=== PATIENT | male | born 1955 | race Caucasian/White ===

== ENCOUNTER 2018-03-26 05:59 | Emergency (ER) | payer OTHER, SELFPAY ==
[2018-03-26 06:00] VITALS: BP 139/85; PULSE 105; RESP 17; TEMP 36.5; O2SAT 98; BMI 27.4
[2018-03-26 06:02] VITALS: O2SAT 99
--- NOTE | 2018-03-26 06:03 | ED.RN ---
RN CALLED FOR EKG, PULLED OLD EKG'S FOR
[2018-03-26] MEDS: Aspirin 81 MG TAB.CHEW 324 MG PO (06:12)
--- NOTE | 2018-03-26 06:12 | ED.VISSUMM ---
- ER Visit Summary Date of Service: 03/26/18 Chief Complaint: Right sided chest pain and mild shortness of breath History of Present Illness: The patient is a 62 M denies any prior cardiac history. He does have a history of hypertension. Prior prostate CA. Prior renal resection from a mass that ended up being benign. Patient denies any history of cardiac disease. No history of prior DVT or PE. Denies recent travel, surgery or mobilization. Denies calf pain or swelling. Denies pleuritic chest pain or hemoptysis. The pain tonight started within the last hour. He was brought in from work. Physical Examination: Ill-appearing middle-aged male. Vital signs are stable afebrile. Pulse ox 90% room air no signs of hypoxia. H EENT exam unremarkable. Neck ABD. Lungs clear to auscultation bilaterally. No rales, rhonchi or wheezing. Heart regular rhythm rate about 100-105 no murmur. Chest wall is nontender. No ecchymosis or bruising. No subcu air nor crepitance. Abdomen soft and nontender. Normal bowel sounds no peritoneal signs. He is moving all 4 extremities. Calves are nontender without edema or cords. He has normal range of motion of both upper and lower extremities. Equal symmetrical radial pulses. Neurologically is awake alert with no focal motor deficits. Back exam is nontender. And unremarkable. Test Results: 1 view chest x-ray read by myself shows no acute abnormality. CBC shows a white count of 6. Hemoglobin of 12 which is his baseline on prior labs. Electrolytes show potassium at 3.3. BUN of 31 and a creatinine of 1.84 typically his creatinines run 1.3. Gap is 7. Due to the elevated creatinine he will be given a liter of normal saline on V. Troponin normal. D-dimer is slightly elevated 0.65. EKG is a sinus tachycardia rate of 102. No acute signs of ischemia. Emergency Department Course and Treatment: Gentleman with atypical right-sided chest discomfort and dyspnea. He has no risk factors for DVT or PE nor history nor family history. He will undergo a cardiac workup. Treatment Plan: Due to the patient's right-sided chest pain, complaint of dyspnea and elevated d-dimer number he will undergo a CT of the chest which is been ordered. Due to his elevated creatinine of the receive a liter of normal saline prior to the CTA. Patient will be checked out in the a.m. physician Dr. Mihai Martin for final disposition. I discussed with the patient his elevated creatinine and only having one kidney he deferred any CTA testing. He states that his chest discomfort is completely resolved. I explained to him that he really did not have any significant risk factors but we should evaluate this further so he is okay with getting bilateral noninvasive studies of his lower extremities. 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 It may contain incorrect words, spelling, and punctuation that were not noted in review of the chart prior to signing ED Disposition - Plan for ED Patient: Chief Complaint: Chest Pain Referrals: Shaniqua Hanna MD [Primary Care Provider] -
[2018-03-26 06:19] LABS: Absolute Lymphocyte Count 1.54 X10^3/ul (0.83-4.51); Absolute Neutrophil Count 3.9 X10^3/uL (2.0-7.7); Basophil# 0.02 X10^3/uL; Basophil% 0.3 % (0-1); Eosinophil# 0.07 X10^3/uL; Eosinophils% 1.1 % (0-5); Hematocrit 37.5 % (40-54); Hemoglobin 12.2 g/dl (13.0-16.5); Lymphocyte # 1.54 X10^3/ul (4.0); Lymphocyte % 23.3 % (19-41); Mean Corp Hgb Conc 32.5 g/gl (32-36); Mean Corpuscular Hgb 29.6 pg (27.0-32.0); Mean Platelet Vol. 9.1 fl (6.2-12.0); Monocyte# 0.99 X10^3/uL; Neutrophil # 3.93 X10^3/uL (2.7-7.7); Neutrophil % 59.5 % (47-70); Platelet Count 298 K/mm3 (150-450); RBC Distribution Width CV 14.3 % (11.6-14.6); RBC Distribution Width SD 47.2 fl (35.1-43.9); Red Blood Count 4.12 M/mm3 (4.6-6.2); White Blood Count 6.6 K/mm3 (4.4-11.0)
[2018-03-26 06:21] LABS: POSITIVE COUNT NO; POSITIVE DIFFERENTIAL NO; POSITIVE MORPHOLOGY NO
[2018-03-26 06:31] LABS: Anion Gap 7 (5-15); BUN 31 mg/dL (7-18); BUN/Creat Ratio 16.8 RATIO (10-20); Calcium,Total 8.8 mg/dL (8.5-10.1); Chloride 106 mmol/L (98-107); Creatinine, Serum 1.84 mg/dL (0.70-1.30); EST Glomerular Filtration Rate 40 mL/min (>60); Est Glom Filt Rate - Afr Amer 48 mL/min (>60); Estimated Creatinine Clearance 42.69 ml/min; Glucose 103 mg/dL (74-106); Potassium 3.3 mmol/L (3.5-5.1); Sodium Level 139 mmol/L (136-145)
[2018-03-26 07:00] VITALS: BP 120/83; PULSE 87; RESP 16; O2SAT 96
[2018-03-26 07:00] LABS: D-Dimer Quantitative (DVT/PE) 0.65 FEU/ug/m (0.27-0.49)
[2018-03-26] MEDS: 0.9% Normal Saline 1,000 ML 999 ML IV (07:06)
[2018-03-26 08:07] VITALS: BP 127/99; PULSE 80; RESP 15; O2SAT 98
--- NOTE | 2018-03-26 08:45 | ED.DEP ---
ED Disposition - Plan for ED Patient: Disposition: Home or Assisted Living Chief Complaint: Chest Pain Instructions: ED Chest Pain Atypical Unkn Cause, ED Insufficiency Renal Referrals: Shaniqua Hanna MD [Primary Care Provider] - 3-5 Days
[2018-03-26 09:16] VITALS: BP 123/87; PULSE 90; RESP 17; O2SAT 98
== END 2018-03-26 09:16 | disposition home or self-care (01) ==
PROVIDERS: Emergency Medicine; Emergency Provider Emergency Medicine; Family Provider Family Medicine; PCP Family Medicine
DX: R07.89 Other chest pain (principal); R06.00 Dyspnea, unspecified; N28.9 Disorder of kidney and ureter, unspecified; R74.8 Abnormal levels of other serum enzymes; R00.0 Tachycardia, unspecified; I10 Essential (primary) hypertension; Z72.0 Tobacco use; Z79.899 Other long term (current) drug therapy; Z85.46 Personal history of malignant neoplasm of prostate; Z90.5 Acquired absence of kidney
CPT/HCPCS: 71045; 80048; 84484; 85025; 85379; 93005; 93970; 96360; 99285; J7030; A4216

== ENCOUNTER → 2018-05-10 09:47 | Outpatient (CLI) | payer OTHER, SELFPAY ==
[2018-05-10 11:13] LABS: Anion Gap 9 (5-15); BUN 29 mg/dL (7-18); BUN/Creat Ratio 17.8 RATIO (10-20); Calcium,Total 8.8 mg/dL (8.5-10.1); Chloride 106 mmol/L (98-107); Creatinine, Serum 1.63 mg/dL (0.70-1.30); EST Glomerular Filtration Rate 46 mL/min (>60); Est Glom Filt Rate - Afr Amer 56 mL/min (>60); Glucose 87 mg/dL (74-106); PSA,Total- Diagnostic 1.52 ng/mL (0.0-4.0); Potassium 4.3 mmol/L (3.5-5.1); Sodium Level 142 mmol/L (136-145)
== END ==
PROVIDERS: Family Provider Family Medicine; PCP Family Medicine; Referring Provider Urology; Visit Provider Urology
DX: C64.9 Malignant neoplasm of unspecified kidney, except renal pelvis (principal); C61 Malignant neoplasm of prostate
CPT/HCPCS: 36415; 80048; 84153

== ENCOUNTER → 2019-05-13 09:51 | Outpatient (CLI) | payer OTHER, SELFPAY ==
[2019-05-13 11:35] LABS: PSA,Total- Diagnostic 1.47 ng/mL (0.0-4.0)
== END ==
PROVIDERS: Family Provider Family Medicine; PCP Family Medicine; Referring Provider Urology; Visit Provider Urology
DX: C61 Malignant neoplasm of prostate (principal)
CPT/HCPCS: 36415; 84153

== ENCOUNTER → 2020-05-05 16:01 | Outpatient (CLI) | payer OTHER, SELFPAY ==
[2020-05-05 17:20] LABS: PSA,Total- Diagnostic 1.29 ng/mL (0.0-4.0)
== END ==
PROVIDERS: PCP Family Medicine; Referring Provider Urology; Visit Provider Urology
DX: Z85.46 Personal history of malignant neoplasm of prostate (principal)
CPT/HCPCS: 36415; 84153

== ENCOUNTER → 2021-05-11 16:27 | Outpatient (CLI) | payer OTHER, SELFPAY ==
[2021-05-11 18:00] LABS: PSA,Total- Diagnostic 1.79 ng/mL (0.0-4.0)
== END ==
PROVIDERS: PCP Family Medicine; Referring Provider Urology; Visit Provider Urology
DX: C61 Malignant neoplasm of prostate (principal)
CPT/HCPCS: 36415; 84153

== ENCOUNTER → 2023-04-03 | Outpatient (CLI) | payer OTHER, MEDICARE, SELFPAY ==
[2023-04-03 12:02] LABS: Hemoglobin 13.8 g/dL (13.0-16.5); Mean Corp Hgb Conc 29.4 g/dL (32-36); Mean Corpuscular Hgb 25.8 pg (27.0-32.0); Mean Platelet Vol. 8.3 fl (6.2-12.0); Platelet Count 319 K/mm3 (150-450); RBC Distribution Width CV 16.3 % (11.6-14.6); RBC Distribution Width SD 51.6 fl (35.1-43.9); Red Blood Count 5.34 M/mm3 (4.6-6.2); White Blood Count 7.6 K/mm3 (4.4-11.0)
[2023-04-03 12:10] LABS: Prothrombin Time (Protime)PT. 13.4 SECONDS (11.7-14.9)
[2023-04-03 12:11] LABS: Partial Thromboplast Time 39.8 Seconds (24.1-36.2)
== END | disposition home or self-care (01) ==
LOC: PAVLAB 11:50
PROVIDERS: PCP Family Medicine; Referring Provider Internal Medicine Critical Care Medicine; Visit Provider Internal Medicine Critical Care Medicine
DX: R91.8 Other nonspecific abnormal finding of lung field (principal)
CPT/HCPCS: 36415; 85027; 85610; 85730

== ENCOUNTER 2023-04-24 07:54 | Inpatient (IN) | payer OTHER, MEDICARE, SELFPAY ==
[2023-04-24] VITALS (44 sets, daily range): BP systolic 75–108; BP diastolic 45–72; PULSE 85–118; RESP 16–29; TEMP 35.8–37.1; O2SAT 87–100; BMI 23.1
--- NOTE | 2023-04-24 08:15 | ED.VIS.DYS ---
HPI History of Present Illness Chief Complaint: Shortness of Breath Informant: patient Onset/Context/Timing Onset: Weeks (3) Context: gradual Timing: Continuous Quality: Positive for Dyspnea on exertion Worsened by: Exertion Relieved by: Rest Associated Symptoms cough, white sputum and yellow sputum; Negative for rhinorrhea, post nasal drip, ear pain, fever, sore throat, chills, sweats, clear sputum or green sputum Chest Pain: Positive for Intermittent and Tightness Narrative Narrative: Patient presents with shortness of breath that has been getting worse over the past 3 weeks. Patient states it is worse anytime he exerts himself such as walking. Patient states he gets some tightness in the left side of his chest when this occurs. Patient admits to a cough with some yellow and white sputum. Patient denies any fevers or chills. Patient denies any sore throat or rhinorrhea. Patient states he was scheduled for a biopsy on his left lung but he has not had the biopsy yet. Patient states his breathing is better with rest. PE Risk Factors: Negative for Cancer, OCP + Smoking + > 35, Prior DVT or PE, Recent immobilization, Recent surgery or Recent travel [facility] Medical History (Updated 04/24/23 @ 14:[address] Parvez Gurrola DO) CKD (chronic kidney disease) BUTCHER (dyspnea on exertion) Hypertension Hypothyroidism Mass of upper lobe of left lung Tobacco abuse Home Medications metoprolol tartrate 25 mg tablet 25 mg PO BID 03/26/18 [History Last Taken Unknown] lisinopril 20 mg-hydrochlorothiazide 25 mg tablet 1 tab PO DAILY 03/27/23 [History Last Taken Unknown] rosuvastatin 40 mg tablet 40 mg PO DAILY 03/27/23 [History Last Taken Unknown] Allergy/AdvReac Type Severity Reaction Status Date / Time No Known Allergies Allergy Verified 04/03/23 10:49 Family History (Updated 04/03/23 @ 10:54 by Tonya Crawford) Brother Cancer Kidney disease Mother Heart disease Grandfather Cancer LUNG Surgical History (Updated 04/24/23 @ 08:[address] Parvez Gurrola DO) History of left nephrectomy Social History Smoking Status: Current every day smoker tobacco type: cigarettes ROS ROS ED Constitutional Constitutional ED: Denies chills or fever(s) Eyes Eyes: Denies blurry vision or change in vision ENT ENT ED: Denies rhinorrhea or sore throat Cardiovascular Cardiovascular: Reports chest pain; Denies palpitations Respiratory/Chest Respiratory/Chest: Reports cough and dyspnea Gastrointestinal Gastrointestinal: Denies nausea or vomiting Genitourinary Genitourinary ED: Denies dysuria or hematuria Musculoskeletal Musculoskeletal: Denies back pain or neck pain Integumentary Denies abscess or rash Neurologic Neurologic: Denies headache(s) or weakness Allergic/Immunologic Allergic/Immunologic ED: Denies mouth swelling or urticaria EXAM Physical Exam Const Vital Signs: 04/24/23 07:56 04/24/23 08:58 04/24/23 08:50 Temperature 96.5 F L Temperature Source Temporal Pulse Rate 85 91 Respiratory Rate 18 23 H Respiratory Effort Respiratory Depth Respiratory Pattern Blood Pressure 75/45 L Blood Pressure Mean 55 Pulse Ox 96 Oxygen Delivery Method Room Air Room Air 04/24/23 09:21 04/24/23 10:20 04/24/23 10:30 Temperature Temperature Source Pulse Rate 98 89 Respiratory Rate 22 H 21 H Respiratory Effort Short of Breath Respiratory Depth Normal Respiratory Pattern Normal Blood Pressure Blood Pressure Mean Pulse Ox Oxygen Delivery Method Room Air 04/24/23 10:40 04/24/23 10:50 04/24/23 11:00 Temperature Temperature Source Pulse Rate 92 93 99 Respiratory Rate 18 18 20 H Respiratory Effort Respiratory Depth Respiratory Pattern Blood Pressure Blood Pressure Mean Pulse Ox Oxygen Delivery Method 04/24/23 11:10 04/24/23 11:24 04/24/23 11:30 Temperature Temperature Source Pulse Rate 98 105 H 106 H Respiratory Rate 22 H 23 H 25 H Respiratory Effort Respiratory Depth Respiratory Pattern Blood Pressure Blood Pressure Mean Pulse Ox Oxygen Delivery Method 04/24/23 11:40 04/24/23 11:50 04/24/23 12:00 Temperature Temperature Source Pulse Rate 98 100 101 H Respiratory Rate 21 H 22 H 22 H Respiratory Effort Respiratory Depth Respiratory Pattern Blood Pressure Blood Pressure Mean Pulse Ox 94 94 92 Oxygen Delivery Method 04/24/23 12:47 04/24/23 12:49 04/24/23 12:50 Temperature Temperature Source Pulse Rate Respiratory Rate Respiratory Effort Respiratory Depth Respiratory Pattern Blood Pressure 83/72 L Blood Pressure Mean 78 Pulse Ox 93 93 Oxygen Delivery Method 04/24/23 13:00 04/24/23 13:10 04/24/23 13:15 Temperature Temperature Source Pulse Rate 99 100 Respiratory Rate 26 H 16 Respiratory Effort Respiratory Depth Respiratory Pattern Blood Pressure 92/68 90/66 Blood Pressure Mean 75 75 Pulse Ox 94 94 Oxygen Delivery Method 04/24/23 13:20 04/24/23 13:30 04/24/23 13:48 Temperature Temperature Source Pulse Rate 105 H 101 H 102 H Respiratory Rate 20 H 18 18 Respiratory Effort Respiratory Depth Respiratory Pattern Blood Pressure 90/66 Blood Pressure Mean 74 Pulse Ox 100 Oxygen Delivery Method 04/24/23 14:05 Temperature Temperature Source Pulse Rate 102 H Respiratory Rate 20 H Respiratory Effort Respiratory Depth Respiratory Pattern Blood Pressure 103/66 Blood Pressure Mean 78 Pulse Ox 100 Oxygen Delivery Method Room Air Positive well nourished and well developed General Appearance ED: well developed HEENT Reports moist mucous membranes Neck supple and no JVD Resp normal respiratory effort Auscultation: wheezes expiratory wheezes and throughout and diminished lung sounds left Cardio regular rate and regular rhythm GI normal to inspection, nondistended, normoactive bowel sounds Palpation: soft Extremity normal to inspection General Extremety ED: Negative for edema or tenderness General Extremity: Negative for edema Neuro oriented x3, CN's II-XII intact bilaterally and no sensory deficits noted Sensorium / Orientation: alert Motor Exam: strength 5/5 throughout Psych mental status grossly normal Skin no rashes or lesions noted MDM MDM MDM Narrative Medical decision making narrative: Differential diagnosis includes pneumothorax, COPD exacerbation, lung mass, pulmonary embolism, pneumonia, congestive heart failure, cardiac dysrhythmia, cardiac ischemia, and anxiety. Chest x-ray will be obtained to assess for pneumonia and pneumothorax. EKG will be obtained to assess for cardiac dysrhythmia and cardiac ischemia. CBC will be obtained to assess for leukocytosis and anemia. Basic metabolic profile will be obtained to assess for electrolyte abnormality and renal function. High-sensitivity troponin will be obtained to assess for cardiac ischemia. D-dimer will be obtained to assess for pulmonary embolism. Lab Data Attestation: I reviewed the patient's lab results. Lab results narrative: CBC was reviewed. There is a slight anemia with a hemoglobin of 12.8. Platelets were normal. White blood cell count was normal. Basic metabolic profile was reviewed. BUN was 48 and creatinine was 3.03. These are increased from previous results. PT with INR and PTT were reviewed and were essentially within normal limits. D-dimer was reviewed and was elevated at 5.67. High-sensitivity troponin was reviewed and was normal at 14. Labs: Laboratory Results - last 24 hr 04/24/23 09:05 WBC 9.1 RBC 5.06 Hgb 12.8 L Hct 44.9 MCV 88.7 MCH 25.3 L MCHC 28.5 L RDW Std Deviation 55.2 H RDW Coeff of Jeffrey 17.2 H Plt Count 286 MPV 9.3 Immature Gran % (Auto) 0.600 Neut % (Auto) 78.2 H Lymph % (Auto) 5.4 L [place] % (Auto) 14.3 H Eos % (Auto) 1.2 Baso % (Auto) 0.3 Absolute Neuts (auto) 7.1 Absolute Lymphs (auto) 0.49 L Nucleated RBC % 0 Differential Comment SCANNED PT 14.0 INR 1.1 APTT 36.4 H D-Dimer Quant (PE/DVT) 5.67 H* Sodium 134 L Potassium 4.9 Chloride 107 Carbon Dioxide 21.0 Anion Gap 6 BUN 48 H Creatinine 3.03 H Est GFR (MDRD) Af Amer 27 L Est GFR (MDRD) Non-Af 22 L BUN/Creatinine Ratio 15.8 Glucose 103 Calcium 9.0 Troponin I High Sens 14 Radiography Chest X-Ray - ED: 2 View, Read by ED Physician, Read by Radiologist, Left Infiltrate and Left Effusion CTA PE Study: No Evidence of PE and No Evidence of Dissection Diagnostic Testing: Clinical Impression(s) from Imaging Studies Chest X-Ray 04/24/23 09:10 IMPRESSION: 3.8 cm x 3.1 cm mass in the medial aspect of the left upper lobe. Left pleural effusion with left basilar infiltration. Electronically Signed: Enoc Amos MD at 9:47 EDT , Chest CTA 04/24/23 10:14 IMPRESSION: Moderate-sized left pleural effusion with left basilar atelectasis. 2.9 cm x 3.1 cm mass in the left upper lobe. Left hilar lymphadenopathy. Mild enlargement of mediastinal lymphadenopathy. Electronically Signed: Enoc Amos MD at 12:05 EDT , PA and lateral chest x-ray was obtained. There are 2 views. On my independent interpretation, lung fontanez show a left infiltrate and left pleural effusion. There is a 3.8 x 3.1 cm mass in the medial aspect of the left upper lobe. There is normal cardiac silhouette. Bony thorax is normal. Radiologist also interpreted the x-ray and agrees. Because of the elevated D-dimer, CTA of the chest was obtained. There is a moderate size left pleural effusion with left basilar atelectasis versus infiltrate. There is a 2.9 cm x 3.1 cm mass in the left upper lobe. There is left hilar lymphadenopathy. This was interpreted by the radiologist and was also independently reviewed by myself. EKG Initial EKG: Attestation: I personally reviewed and interpreted this EKG as follows: Interpretation: Sinus Rhythm (90) and No Acute Injury Pattern Comments: EKG was obtained. On my independent interpretation, it showed a normal sinus rhythm with a rate of 90. UT interval, QRS interval, and QTc intervals were all normal. [place] was normal. There are no acute ST or T wave changes. Prior EKG tracings: available for review Prior: Unchanged (03/26/2018) Treatment and Re-Evaluation :: Patient was given IV fluids. Patient's blood pressure remains somewhat low after 1 L. Patient was given an additional with 1.5 L of IV fluids. Patient was started on Rocephin and Zithromax. Blood cultures were obtained prior to antibiotics. Patient was advised of his findings. Patient was advised of the need for admission to the hospital for IV fluids and IV antibiotics. Patient is agreeable with this. Case will be discussed with the hospitalist. He recommended obtaining venous duplex of the lower extremities. He will admit the patient to his service. Patient understood and was agreeable with the plan. All questions were answered. Discharge Plan Dx/Rx/DC Orders Clinical Impression: Pleural effusion on left, Tobacco abuse, Pneumonia, Hypotension, Acute kidney injury, Mass of left lung Disposition Disposition: [facility]
--- NOTE | 2023-04-24 08:26 | EKG12_ITS ---
Test Reason : SOB Blood Pressure : / mmHG Vent. Rate : 090 BPM Atrial Rate : 090 BPM P-R Int : 140 ms QRS Dur : 072 ms QT Int : 346 ms P-R-T Axes : 033 043 062 degrees QTc Int : 423 ms Normal sinus rhythm Normal ECG Confirmed by DALLAS MEDEIROS MD ([id number]), clinical editor CINTHIA SCHMITZ ([id number]) on 04/27/2023 1:51:11 PM Referred By: Confirmed By:DALLAS MEDEIROS MD
[2023-04-24] MEDS: Ipratropium/Albuterol Sulfate 3 ML AMPUL.NEB INHALATION (08:57)
[2023-04-24] MEDS: 0.9% Normal Saline (1000mL) 1,000 ML 1000 ML IV (09:07)
--- NOTE | 2023-04-24 09:10 | RAD_ITS ---
STUDY: X-RAY CHEST REASON FOR EXAM: Male, 67 years old. Dyspnea TECHNIQUE: PA and lateral views of the chest. COMPARISON: Comparison is made with prior study dated March 26, 2018. FINDINGS: EKG electrodes are seen. There is a 3.8 cm x 3.1 cm nodule in the medial aspect of the left upper lobe. This was not seen on prior study. Small left pleural effusion with left basilar infiltrate. Mild increased markings at the right lung base. Normal size heart. Normal mediastinum and casimiro. Normal visualized pulmonary arteries. There is atherosclerotic calcification of the aortic arch with tortuosity. Normal visualized thoracic spine. Normal visualized ribs, clavicles, and shoulders. There is no demonstrated abnormality of the visualized soft tissue structures of the upper abdomen. RAD/Chest PA and Lateral IMPRESSION: 3.8 cm x 3.1 cm mass in the medial aspect of the left upper lobe. Left pleural effusion with left basilar infiltration. Electronically Signed: Enoc Amos MD at 9:47 EDT ,
[2023-04-24 09:12] LABS: Absolute Lymphocyte Count 0.49 X10^3/uL (0.83-4.51); Absolute Neutrophil Count 7.1 X10^3/uL (2.0-7.7); Basophil# 0.03 X10^3/uL; Basophil% 0.3 % (0-1); Eosinophil# 0.11 X10^3/uL; Eosinophils% 1.2 % (0-5); Hematocrit 44.9 % (40-54); Hemoglobin 12.8 g/dL (13.0-16.5); Lymphocyte # 0.49 X10^3/ul (0.83-4.51); Lymphocyte % 5.4 % (19-41); Mean Corp Hgb Conc 28.5 g/dL (32-36); Mean Corpuscular Hgb 25.3 pg (27.0-32.0); Mean Corpuscular Volume 88.7 fL (80-94); Mean Platelet Vol. 9.3 fl (6.2-12.0); Monocyte% 14.3 % (0-10); NRBC Flagged by Analyzer 0 % (0-5); Neutrophil # 7.08 X10^3/uL (2.7-7.7); Neutrophil % 78.2 % (47-70); POSITIVE DIFFERENTIAL YES; Platelet Count 286 K/mm3 (150-450); RBC Distribution Width CV 17.2 % (11.6-14.6); RBC Distribution Width SD 55.2 fl (35.1-43.9); Red Blood Count 5.06 M/mm3 (4.6-6.2); White Blood Count 9.1 K/mm3 (4.4-11.0)
[2023-04-24 09:18] LABS: Differential Indicated SCAN CRITERIA MET
[2023-04-24 09:29] LABS: Anion Gap 6 (5-15); BUN 48 mg/dL (7-18); BUN/Creat Ratio 15.8 RATIO (10-20); Chloride 107 mmol/L (98-107); Creatinine, Serum 3.03 mg/dL (0.70-1.30); EST Glomerular Filtration Rate 22 mL/min (>60); Est Glom Filt Rate - Afr Amer 27 mL/min (>60); Glucose 103 mg/dL (74-106); Potassium 4.9 mmol/L (3.5-5.1); Sodium Level 134 mmol/L (136-145); Troponin-I HS 14 pg/mL (3.0-78.0)
[2023-04-24 09:31] LABS: International Normalized Ratio 1.1
[2023-04-24 09:32] LABS: Partial Thromboplast Time 36.4 Seconds (24.1-36.2)
[2023-04-24 10:01] LABS: Differential Comment SCANNED
[2023-04-24 10:08] LABS: D-Dimer Quantitative (DVT/PE) 5.67 FEU/ug/m (0.27-0.49)
--- NOTE | 2023-04-24 10:14 | CT_ITS ---
STUDY: CTA CHEST REASON FOR EXAM: Male, 67 years old. Elevated D-dimer RADIATION DOSAGE (If Supplied By Facility): CTDIvol = ( 8.23 ) mGy, DLP = ( 465.04 ) mGycm TECHNIQUE: The examination was performed with the intravenous administration of IV 100mL [id number]. Post-processing of the angiographic images was performed, with multiplanar reformation and 3D reconstruction. Individualized dose optimization techniques were used for this CT. COMPARISON: Comparison is made with prior chest radiograph done earlier in the day. FINDINGS: Normal enhancement of the main pulmonary artery and right and left pulmonary arteries. Normal enhancement of the bilateral peripheral pulmonary arteries. There is no demonstrated pulmonary embolism. There is atherosclerotic calcification of the aortic arch with tortuosity. There is no demonstrated aortic dissection. There are calcifications of the coronary arteries. Minimal pericardial thickening. There is a 3.6 cm x 1.6 cm mass in the left hilum suggestive of adenopathy. Mildly enlarged mediastinal lymph nodes. Normal visualized trachea and bronchi. Moderate sized left pleural effusion with compressive atelectasis at the left lung base. There is a 2.9 cm x 3.1 cm irregular mass in the left upper lobe . Mild degree of increased interstitial markings at the right lung base suggestive of atelectasis. Normal chest wall structures. There are degenerative changes of thoracic spine. Focal rounded sclerotic density seen in the anterior aspect of the T2 vertebral body. There is a 3.2 cm x 3.3 cm cyst in the upper pole of the right kidney. CT/CTA Chest W/WO Contrast IMPRESSION: Moderate-sized left pleural effusion with left basilar atelectasis. 2.9 cm x 3.1 cm mass in the left upper lobe. Left hilar lymphadenopathy. Mild enlargement of mediastinal lymphadenopathy. Electronically Signed: Enoc Amos MD at 12:05 EDT ,
[2023-04-24] MEDS: 0.9% Normal Saline (1000mL) 1,000 ML 999 ML IV ×2 (13:09→14:36)
[2023-04-24] MEDS: Ceftriaxone 2 GM in 0.9% Normal Saline (50mL MB+) 50 ML IV (13:20)
[2023-04-24] MEDS: Azithromycin 500 MG in Dextrose 5%-Water (250mL Bag) 250 ML 250 MG IV (14:37)
--- NOTE | 2023-04-24 14:37 | VDLE_ITS ---
Reason For Study: Elevated D-dimer RIGHT LEFT GSV is normal. GSV is normal. CFV is compressible, spontaneous, phasic, CFV is compressible, spontaneous, phasic, competent and demonstrates normal competent, and demonstrates normal augmentation. augmentation. FV is compressible, spontaneous, phasic, FV is compressible, spontaneous, phasic, competent and demonstrates normal competent and demonstrates normal augmentation. augmentation. POP V is compressible, spontaneous, phasic, POP V is compressible, spontaneous, phasic, competent and demonstrates normal competent and demonstrates normal augmentation. augmentation. T/P Trunk is compressible. T/P Trunk is compressible. PTV is compressible. PTV is compressible. RT PerV is compressible. LT PerV is compressible. Procedure This is a venous duplex using B-mode, color flow and spectral Doppler. Exam performed portable in ED. A preliminary report was called and/or faxed to ED RN. VL/Venous Duplex US - Jeramy Extrem Interpretation Summary No evidence for acute deep venous thrombosis bilateral lower extremities with p atent and compressible bilateral great saphenous veins. Ordering Physician: Parvez Gurrola Referring Physician: Shaniqua Waldron Performed By: Crystal Freeman RVT
--- NOTE | 2023-04-24 17:11 | HP.PCM.HOS_ITS ---
HPI - General General Date of Admission: 04/24/23 Date of Service: 04/24/23 Chief Complaint: Lightheadedness, shortness of breath HPI Narrative IRVING ULLOA, is a 67 M who presents to the emergency room at [facility] complaining of lightheadedness today while he was at work, he also complained of shortness of breath, he is vague about the timeframe as to how long he has had shortness of breath. Patient states his oral intake over the last several days has been poor-this includes fluid intake. Patient denies any chest pain or cough. Patient also denied any chills or fever. Patient was noted to be hypotensive in the ER with a systolic blood pressure in the 70s, the ER physician told this examiner that he was given a fluid bolus with improvement of his blood pressure. Work-up in the emergency room included labs which revealed a normal white blood cell count, hemoglobin was slightly low at 12.8, patient's D-dimer was elevated at 5.67, creatinine was elevated at 3.03 and BUN was 48. Patient underwent a chest x-ray which showed a 3.8 cm x 3.1 cm mass in the medial aspect of the left upper lobe, there is also noted to be a left pleural effusion with left basilar infiltration, patient then underwent a CTA of his chest, this showed a moderate size left pleural effusion with left basilar atelectasis and a 2.9 x 3.1 cm mass in the left upper lobe along with left hilar lymphadenopathy and mild enlargement of mediastinal lymph nodes. Since the patient had an elevated D- dimer, the emergency room physician also ordered a venous duplex which was negative for DVT. In talking with the patient, he states that he has a known abnormality in his left lung, he had seen pulmonary medicine about having a needle biopsy of the area performed but he has put off doing this. 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 I talked at length with the patient concerning whether he wanted to pursue any of this and he would not give me a definite answer during the time of my examination of him in the ER. 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 Gee. The ER physician today told me the patient told him that he did not understand why his kidney was taken out. Patient will be admitted to [place] [id number] for acute kidney injury, his lisinopril hydrochlorothiazide combination will be held, he will remain on his beta-suhail and he will be given IV fluids. His labs will be monitored, discussions will have to be carried out with the patient as to whether he wants to undergo any further diagnostic testing for his left pleural effusion and his left upper lung mass. [facility] Medical History (Updated 04/24/23 @ 17:05 by Isa Harris) Chest pain Chronic pain CKD (chronic kidney disease) BUTCHER (dyspnea on exertion) Hypertension Hypothyroidism Irregular heart beat Kidney disease Mass of upper lobe of left lung Smoker Substance abuse Tobacco abuse Home Medications metoprolol tartrate 25 mg tablet 25 mg PO BID 03/26/18 [History Last Taken 04/24/23] lisinopril 20 mg-hydrochlorothiazide 25 mg tablet 1 tab PO DAILY 03/27/23 [History Last Taken 04/24/23] rosuvastatin 40 mg tablet 40 mg PO DAILY 03/27/23 [History Last Taken 04/24/23] omega 6-vcv-arw-fish oil 300 mg-1,000 mg capsule (Fish Oil) 1 cap PO BID 04/24/23 [History Last Taken 04/24/23] Allergy/AdvReac Type Severity Reaction Status Date / Time No Known Allergies Allergy Verified 04/24/23 15:07 Family History (Updated 04/03/23 @ 10:54 by Tonya Crawford) Brother Cancer Kidney disease Mother Heart disease Grandfather Cancer LUNG Surgical History (Updated 04/24/23 @ 08:[address] Parvez Gurrola DO) History of left nephrectomy Social History Smoking Status: Current every day smoker tobacco type: cigarettes ROS Constitutional Constitutional: Denies anorexia, change in weight, fever(s), night sweats or weakness Eyes Eyes: Denies blurry vision, change in vision, discharge from eye(s) or eye pain Cardiovascular Cardiovascular: Reports dyspnea on exertion and lightheadedness; Denies chest pain, claudication, edema or palpitations Respiratory/Chest Respiratory/Chest: Reports dyspnea, shortness of breath at rest and shortness of breath with exertion; Denies cough, hemoptysis or productive cough Gastrointestinal Gastrointestinal: Denies abdominal pain, constipation, diarrhea, hematemesis, hematochezia, melena, nausea or vomiting Genitourinary Genitourinary: Denies dysuria, hematuria, urinary frequency, urinary hesitancy, urinary incontinence or urinary urgency Musculoskeletal Musculoskeletal: Denies back pain, joint pain, joint stiffness, joint swelling, myalgias or neck pain Neurologic Neurologic: Denies abnormal gait, abnormal speech, confusion, disequilibrium, dizziness, focal weakness, headache(s), loss of vision, numbness, other visual disturbances, paresthesias, syncope or tingling Psychiatric Psychiatric: Denies anxiety, cognitive impairment, depression, irritability, mood swings or suicidal ideation Endocrine Endocrinology: Denies change in body appearance, cold intolerance, excessive sweating, heat intolerance, polydipsia or polyuria Hematologic/Lymphatic Hematologic/Lymphatic: Denies none, anemia, easy bleeding, easy bruising or lymphadenopathy Allergic/Immunologic Allergic/Immunologic: Denies rhinitis, urticaria, eczemia or asthma Vital Signs Vital Signs Vital Signs: 04/24/23 07:56 04/24/23 08:58 04/24/23 08:50 Temperature 96.5 F L Temperature Source Temporal Pulse Rate 85 91 Respiratory Rate 18 23 H Respiratory Effort Respiratory Depth Respiratory Pattern Blood Pressure 75/45 L Blood Pressure Mean 55 Blood Pressure Source Blood Pressure Position Blood Pressure Location Pulse Ox 96 Oxygen Delivery Method Room Air Room Air 04/24/23 09:21 04/24/23 10:20 04/24/23 10:30 Temperature Temperature Source Pulse Rate 98 89 Respiratory Rate 22 H 21 H Respiratory Effort Short of Breath Respiratory Depth Normal Respiratory Pattern Normal Blood Pressure Blood Pressure Mean Blood Pressure Source Blood Pressure Position Blood Pressure Location Pulse Ox Oxygen Delivery Method Room Air 04/24/23 10:40 04/24/23 10:50 04/24/23 11:00 Temperature Temperature Source Pulse Rate 92 93 99 Respiratory Rate 18 18 20 H Respiratory Effort Respiratory Depth Respiratory Pattern Blood Pressure Blood Pressure Mean Blood Pressure Source Blood Pressure Position Blood Pressure Location Pulse Ox Oxygen Delivery Method 04/24/23 11:10 04/24/23 11:24 04/24/23 11:30 Temperature Temperature Source Pulse Rate 98 105 H 106 H Respiratory Rate 22 H 23 H 25 H Respiratory Effort Respiratory Depth Respiratory Pattern Blood Pressure Blood Pressure Mean Blood Pressure Source Blood Pressure Position Blood Pressure Location Pulse Ox Oxygen Delivery Method 04/24/23 11:40 04/24/23 11:50 04/24/23 12:00 Temperature Temperature Source Pulse Rate 98 100 101 H Respiratory Rate 21 H 22 H 22 H Respiratory Effort Respiratory Depth Respiratory Pattern Blood Pressure Blood Pressure Mean Blood Pressure Source Blood Pressure Position Blood Pressure Location Pulse Ox 94 94 92 Oxygen Delivery Method 04/24/23 12:47 04/24/23 12:49 04/24/23 12:50 Temperature Temperature Source Pulse Rate Respiratory Rate Respiratory Effort Respiratory Depth Respiratory Pattern Blood Pressure 83/72 L Blood Pressure Mean 78 Blood Pressure Source Blood Pressure Position Blood Pressure Location Pulse Ox 93 93 Oxygen Delivery Method 04/24/23 13:00 04/24/23 13:10 04/24/23 13:15 Temperature Temperature Source Pulse Rate 99 100 Respiratory Rate 26 H 16 Respiratory Effort Respiratory Depth Respiratory Pattern Blood Pressure 92/68 90/66 Blood Pressure Mean 75 75 Blood Pressure Source Blood Pressure Position Blood Pressure Location Pulse Ox 94 94 Oxygen Delivery Method 04/24/23 13:20 04/24/23 13:30 04/24/23 13:48 Temperature Temperature Source Pulse Rate 105 H 101 H 102 H Respiratory Rate 20 H 18 18 Respiratory Effort Respiratory Depth Respiratory Pattern Blood Pressure 90/66 Blood Pressure Mean 74 Blood Pressure Source Blood Pressure Position Blood Pressure Location Pulse Ox 100 Oxygen Delivery Method 04/24/23 14:05 04/24/23 15:27 04/24/23 13:40 Temperature 98.1 F Temperature Source Temporal Pulse Rate 102 H 105 H 103 H Respiratory Rate 20 H 22 H 20 H Respiratory Effort Respiratory Depth Respiratory Pattern Blood Pressure 103/66 103/66 Blood Pressure Mean 78 78 Blood Pressure Source Blood Pressure Position Blood Pressure Location Pulse Ox 100 92 94 Oxygen Delivery Method Room Air Room Air 04/24/23 13:50 04/24/23 14:00 04/24/23 14:10 Temperature Temperature Source Pulse Rate 88 106 H 102 H Respiratory Rate 22 H 29 H 25 H Respiratory Effort Respiratory Depth Respiratory Pattern Blood Pressure 103/66 Blood Pressure Mean 79 Blood Pressure Source Blood Pressure Position Blood Pressure Location Pulse Ox 93 92 95 Oxygen Delivery Method 04/24/23 14:38 04/24/23 14:40 04/24/23 14:50 Temperature Temperature Source Pulse Rate 111 H 111 H 104 H Respiratory Rate 19 H 20 H 24 H Respiratory Effort Respiratory Depth Respiratory Pattern Blood Pressure Blood Pressure Mean Blood Pressure Source Blood Pressure Position Blood Pressure Location Pulse Ox Oxygen Delivery Method 04/24/23 15:00 04/24/23 15:10 04/24/23 15:20 Temperature Temperature Source Pulse Rate 105 H 104 H 102 H Respiratory Rate 24 H 22 H 21 H Respiratory Effort Respiratory Depth Respiratory Pattern Blood Pressure Blood Pressure Mean Blood Pressure Source Blood Pressure Position Blood Pressure Location Pulse Ox Oxygen Delivery Method 04/24/23 15:30 04/24/23 15:40 04/24/23 15:50 Temperature Temperature Source Pulse Rate 102 H 86 94 Respiratory Rate 27 H 19 H 22 H Respiratory Effort Respiratory Depth Respiratory Pattern Blood Pressure Blood Pressure Mean Blood Pressure Source Blood Pressure Position Blood Pressure Location Pulse Ox Oxygen Delivery Method 04/24/23 16:00 04/24/23 16:10 04/24/23 16:55 Temperature 98.7 F Temperature Source Oral Pulse Rate 105 H 102 H 118 H Respiratory Rate 28 H 27 H 20 H Respiratory Effort Respiratory Depth Respiratory Pattern Blood Pressure 100/67 Blood Pressure Mean 78 Blood Pressure Source Monitor Blood Pressure Position Semi-Fowlers Blood Pressure Location Left Arm Pulse Ox 95 Oxygen Delivery Method Room Air Weight Weight: 73.3 kg Body Mass Index (BMI) 23.1 Physical Exam Const alert, oriented x3, no apparent distress, average body habitus and healthy a ppearing General Appearance: cooperative, well kempt and well developed Orientation / Consciousness: awake, oriented to person, oriented to place and or iented to time HEENT normocephalic, head/scalp atraumatic, hearing grossly normal bilaterally and moist oral mucous membranes Eyes PERRL, EOMs intact bilaterally and conjunctivae normal Neck supple, no JVD, thyroid normal and no carotid bruits General: trachea midline Resp normal respiratory effort, no retractions and no use of accessory muscles Resp Narrative: Lung sounds are diminished over the left lower one half lung field, patient had expiratory wheezes over his right lung field Auscultation: wheezes expiratory wheezes, scattered wheezes and throughout; Negative for rales or rhonchi Cardio regular rate, regular rhythm, S1 normal heart sound, S2 normal heart sound, no murmurs, no rub and no gallops GI normal to inspection, nondistended, normoactive bowel sounds, soft to palpation, non-tender and non-distended Extremity normal to inspection and no clubbing, cyanosis or edema Skin no rashes or lesions noted General Skin Exam: no breakdown Neuro oriented x3, CN's II-XII intact bilaterally, no focal motor deficits and no sensory deficits noted Sensorium / Orientation: awake and alert Speech: speech normal Psych affect normal Results Lab / Micro Data 04/24/23 09:05 04/24/23 09:05 Labs: Laboratory Results - last 24 hr 04/24/23 09:05: WBC 9.1, RBC 5.06, Hgb 12.8 L, Hct 44.9, MCV 88.7, MCH 25.3 L, MCHC 28.5 L, RDW Std Deviation 55.2 H, RDW Coeff of Jeffrey 17.2 H, Plt Count 286, MPV 9.3, Immature Gran % (Auto) 0.600, Neut % (Auto) 78.2 H, Lymph % (Auto) 5.4 L, [place] % (Auto) 14.3 H, Eos % (Auto) 1.2, Baso % (Auto) 0.3, Absolute Neuts (auto) 7.1, Absolute Lymphs (auto) 0.49 L, Nucleated RBC % 0, Differential Comment SCANNED, PT 14.0, INR 1.1, APTT 36.4 H, D-Dimer Quant (PE/DVT) 5.67 H*, Sodium 134 L, Potassium 4.9, Chloride 107, Carbon Dioxide 21.0, Anion Gap 6, BUN 48 H, Creatinine 3.03 H, Est GFR (MDRD) Af Amer 27 L, Est GFR (MDRD) Non-Af 22 L , BUN/Creatinine Ratio 15.8, Glucose 103, Calcium 9.0, Troponin I High Sens 14 Radiology Impression Chest X-Ray 04/24/23 09:10 IMPRESSION: 3.8 cm x 3.1 cm mass in the medial aspect of the left upper lobe. Left pleural effusion with left basilar infiltration. Electronically Signed: Enoc Amos MD at 9:47 EDT , Chest CTA 04/24/23 10:14 IMPRESSION: Moderate-sized left pleural effusion with left basilar atelectasis. 2.9 cm x 3.1 cm mass in the left upper lobe. Left hilar lymphadenopathy. Mild enlargement of mediastinal lymphadenopathy. Electronically Signed: Enoc Amos MD at 12:05 EDT , Venous Doppler Study 04/24/23 14:37 Interpretation Summary No evidence for acute deep venous thrombosis bilateral lower extremities with patent and compressible bilateral great saphenous veins. Ordering Physician: Parvez Gurrola Referring Physician: Shaniqua Waldron Performed By: Crystal Freeman RVT Assessment & Plan Assessment/Plan (1) Mass of left lung: PLAN: Plan 1. Acute kidney injury on a backdrop of chronic kidney disease-probably stage IIIa-patient will be admitted to [facility], he will be given IV fluids and labs will be monitored. Patient's lisinopril and hydrochlorothiazide will be held. #2 left upper lobe neoplasm-most probably secondary to either primary lung cancer or metastatic cancer (patient has had a history of renal cell cancer in the past but this was almost 10 years ago)-patient seems conflicted about whether he wants anything done to diagnose the etiology of the neoplasm, this will have to be discussed with his attending hospitalist tomorrow, patient does have a sizable pleural effusion on the left, this may need to be tapped. Again, I briefly discussed the possibility of doing some diagnostic testing on the patient but he was not able to make up his mind whether he wanted anything done. I told him he could very well be a primary lung cancer or a metastatic cancer. #3 hypotension-secondary to acute kidney injury with a backdrop of chronic blood pressure medication-again patient's lisinopril hydrochlorothiazide will be held at this time, I will keep the patient on his beta-suhail. #4 essential hypertension-again patient's hydrochlorothiazide/lisinopril combination will be held #5 probable COPD-patient will be placed on aerosol treatments, pulse ox will be monitored #6 dyspnea-probably secondary to probable COPD and left pleural effusion- patient's pulse ox will be monitored, he does not require oxygen at this time, he will need a walking pulse oximetry before he is discharged from the hospital. Total clinical time spent by myself addressing the patient's medical issues, reviewing all of his data, and collaborating with the patient's care team: 75 minutes. Charges/Coding Visit Charges Inpatient E&M: 30354 Init Hosp L3
[2023-04-24] MEDS: 0.9% Normal Saline (1000mL) 1,000 ML 125 ML IV (17:27)
[2023-04-24] MEDS: Heparin Injection (Vial) 5,000 UNIT/ML VIAL 5000 UNIT SC (19:49)
[2023-04-24] MEDS: Metoprolol Tartrate 25 MG Tablet PO (20:07)
[2023-04-24] MEDS: guaiFENesin 1,200 MG Tablet 1200 MG PO (20:42)
[2023-04-25] VITALS (10 sets, daily range): BP systolic 96–130; BP diastolic 55–69; PULSE 92–116; RESP 16–24; TEMP 36.5–36.9; O2SAT 94–97
[2023-04-25] MEDS: 0.9% Normal Saline (1000mL) 1,000 ML 125 ML IV ×3 (00:47→17:02)
[2023-04-25] MEDS: Ipratropium/Albuterol Sulfate 3 ML AMPUL.NEB INHALATION ×3 (01:47→19:44)
[2023-04-25] MEDS: Heparin Injection (Vial) 5,000 UNIT/ML VIAL 5000 UNIT SC ×3 (05:06→21:50)
[2023-04-25 06:49] LABS: Absolute Lymphocyte Count 0.55 X10^3/uL (0.83-4.51); Absolute Neutrophil Count 5.8 X10^3/uL (2.0-7.7); Basophil# 0.02 X10^3/uL; Basophil% 0.3 % (0-1); Eosinophil# 0.06 X10^3/uL; Eosinophils% 0.8 % (0-5); Hematocrit 42.2 % (40-54); Hemoglobin 11.8 g/dL (13.0-16.5); Lymphocyte # 0.55 X10^3/ul (0.83-4.51); Lymphocyte % 7.3 % (19-41); Mean Corpuscular Hgb 24.9 pg (27.0-32.0); Mean Corpuscular Volume 89.2 fL (80-94); Mean Platelet Vol. 9.3 fl (6.2-12.0); Monocyte# 1.11 X10^3/uL; Monocyte% 14.6 % (0-10); NRBC Flagged by Analyzer 0 % (0-5); Neutrophil # 5.81 X10^3/uL (2.7-7.7); Neutrophil % 76.6 % (47-70); POSITIVE DIFFERENTIAL YES; Platelet Count 275 K/mm3 (150-450); RBC Distribution Width CV 17.2 % (11.6-14.6); RBC Distribution Width SD 56.5 fl (35.1-43.9); Red Blood Count 4.73 M/mm3 (4.6-6.2); White Blood Count 7.6 K/mm3 (4.4-11.0)
[2023-04-25 06:51] LABS: Differential Indicated SCAN CRITERIA MET
[2023-04-25 07:11] LABS: Anion Gap 7 (5-15); BUN 36 mg/dL (7-18); BUN/Creat Ratio 16.2 RATIO (10-20); Calcium,Total 8.1 mg/dL (8.5-10.1); Chloride 113 mmol/L (98-107); Creatinine, Serum 2.22 mg/dL (0.70-1.30); EST Glomerular Filtration Rate 32 mL/min (>60); Est Glom Filt Rate - Afr Amer 38 mL/min (>60); Estimated Creatinine Clearance 34.25 ml/min; Glucose 85 mg/dL (74-106); Potassium 4.7 mmol/L (3.5-5.1); Sodium Level 138 mmol/L (136-145)
--- NOTE | 2023-04-25 07:11 | PN.HOSP_ITS ---
Reason for Visit Reason for Visit: Diagnoses Other nonspecific abnormal finding of lung field (04/24/23) Subjective Subjective Still w SOB. Objective Data Objective Data Vital Signs: Vital Signs Temp Pulse Resp BP Pulse Ox O2 Del Method O2 Flow Rate 36.5 C L 106 H 20 H 130/69 H 94 Nasal Cannula 3 04/25/23 05:04/25/23 05:04/25/23 05:04/25/23 05:04/25/23 05:04/25/23 05:04/25/23 05:10 Oxygen Flow Rate (L/min) 3 Oxygen Delivery Method Nasal Cannula Weight: 73.3 kg Body Mass Index (BMI) 23.1 Intake & Output: Intake and Output for Last 24 Hours 04/23/23 04/24/23 04/25/23 23:59 23:59 23:59 Intake Total 3305 / 3305 916.67 / 916.67 Balance 3305 / 3305 916.67 / 916.67 Lab / Micro Data 04/25/23 06:10 04/25/23 06:10 Labs: Laboratory Results - last 24 hr 04/24/23 09:05: WBC 9.1, RBC 5.06, Hgb 12.8 L, Hct 44.9, MCV 88.7, MCH 25.3 L, MCHC 28.5 L, RDW Std Deviation 55.2 H, RDW Coeff of Jeffrey 17.2 H, Plt Count 286, MPV 9.3, Immature Gran % (Auto) 0.600, Neut % (Auto) 78.2 H, Lymph % (Auto) 5.4 L, [place] % (Auto) 14.3 H, Eos % (Auto) 1.2, Baso % (Auto) 0.3, Absolute Neuts (auto) 7.1, Absolute Lymphs (auto) 0.49 L, Nucleated RBC % 0, Differential Comment SCANNED, PT 14.0, INR 1.1, APTT 36.4 H, D-Dimer Quant (PE/DVT) 5.67 H*, Sodium 134 L, Potassium 4.9, Chloride 107, Carbon Dioxide 21.0, Anion Gap 6, BUN 48 H, Creatinine 3.03 H, Est GFR (MDRD) Af Amer 27 L, Est GFR (MDRD) Non-Af 22 L , BUN/Creatinine Ratio 15.8, Glucose 103, Calcium 9.0, Troponin I High Sens 14 04/25/23 06:10: WBC 7.6, RBC 4.73, Hgb 11.8 L, Hct 42.2, MCV 89.2, MCH 24.9 L, MCHC 28.0 L, RDW Std Deviation 56.5 H, RDW Coeff of Jeffrey 17.2 H, Plt Count 275, MPV 9.3, Immature Gran % (Auto) 0.400, Neut % (Auto) 76.6 H, Lymph % (Auto) 7.3 L, [place] % (Auto) 14.6 H, Eos % (Auto) 0.8, Baso % (Auto) 0.3, Absolute Neuts (auto) 5.8, Absolute Lymphs (auto) 0.55 L, Nucleated RBC % 0, Sodium 138, Potassium 4.7, Chloride 113 H, Carbon Dioxide 18.0 L, Anion Gap 7, BUN 36 H, Creatinine 2.22 H, Estim Creat Clear Calc 34.25, Est GFR (MDRD) Af Amer 38 L, Est GFR (MDRD) Non-Af 32 L, BUN/Creatinine Ratio 16.2, Glucose 85, Calcium 8.1 L Micro: Microbiology 04/24/23 20:40 Mucosa - Nose Respiratory Panel (PCR) - Final 04/24/23 20:40 Nasal Secretion SARS-CoV-2 Antigen (Rapid) - Final Radiography Diagnostic Testing: Radiology Impression Chest X-Ray 04/24/23 09:10 IMPRESSION: 3.8 cm x 3.1 cm mass in the medial aspect of the left upper lobe. Left pleural effusion with left basilar infiltration. Electronically Signed: Enoc Amos MD at 9:47 EDT , Chest CTA 04/24/23 10:14 IMPRESSION: Moderate-sized left pleural effusion with left basilar atelectasis. 2.9 cm x 3.1 cm mass in the left upper lobe. Left hilar lymphadenopathy. Mild enlargement of mediastinal lymphadenopathy. Electronically Signed: Enoc Amos MD at 12:05 EDT , Venous Doppler Study 04/24/23 14:37 Interpretation Summary No evidence for acute deep venous thrombosis bilateral lower extremities with patent and compressible bilateral great saphenous veins. Ordering Physician: Parvez Gurrola Referring Physician: Shaniqua Waldron Performed By: Crystal Freeman RVT Physical Exam Const alert and no apparent distress Resp Resp Narrative: no wheezes. diminished in LLL Cardio regular rate, regular rhythm, S1 normal heart sound and S2 normal heart sound GI normal to inspection, nondistended, normoactive bowel sounds, soft to palpation, non-tender and non-distended Extremity normal to inspection Assessment & Plan Assessment/Plan (1) Mass of left lung: PLAN: Subsequent encounter Has seen pulmonary in March and advised to have a CT-guided Bx at that time--that has not occurred. He does have the SUSANNE mass, but also will a large pleural effusion. Discussed with the patient, his brother and mother. Reviewed the CT images with them showing a large left-sided pleural effusion as well as the mass. Explained the risks associated with doing a CT-guided biopsy of the mass including pneumothorax given that central location. Explained that a thoracentesis would help his breathing but also provide us some potential for diagnosing the underlying malignancy. They are agreeable and understand the risks of pneumo thorax and are agreeable to proceeding with a thoracentesis. (2) Acute kidney injury: PLAN: Suspect prerenal given dehydration but also possibly complicated by lisinopril/HCTZ Improvement with IVF. Continue to hold lisinopril/HCTZ Patient did have a CTA of his chest with the VICKIE, fortunately creatinine appears to be improving. (3) Hypotension: QUALIFIERS: Hypotension type: hypotension due to hypovolemia Qualified Code(s): I95.89 - Other hypotension; E86.1 - Hypovolemia PLAN: Admission BP was 75/45 Responded well to IVF, suggestive pt was hypovolemic (likely dehydration) (4) Elevated d-dimer: PLAN: Duplex LE negative Wells Score 2.5, making PE unlikely, CTA was done despite this. No evidence of PE on CTA. Likely associated with underlying highly suspected malignancy. No additional work up at this time. PLAN: Plan Chronic conditions: * essential hypertension-again patient's hydrochlorothiazide/lisinopril combination will be held * probable COPD-patient will be placed on aerosol treatments, pulse ox will be monitored VTE prophylaxis: SQ heparin Greater than 55 minutes of which greater than for percent time was counseling the patient, his brother and mother about the what looks to be cancer as well as pleural effusion. Reviewed the images with them all and explained the reasoning for for proceeding with thoracentesis as old may help him breathe better but als o potentially offer diagnostic confirmation. Charges/Coding Visit Charges Inpatient E&M: 04903 Subs Hosp L3
[2023-04-25 07:17] LABS: Differential Comment SCANNED
[2023-04-25] MEDS: Metoprolol Tartrate 25 MG Tablet PO ×2 (09:58→21:51)
[2023-04-25] MEDS: guaiFENesin 1,200 MG Tablet 1200 MG PO ×2 (09:58→21:50)
--- NOTE | 2023-04-25 11:40 | CASEMGMT ---
LADAN GOLD Assessment: Face to Face with pt for initial transition planning/care coordination assessment. LADAN GOLD introduced self and role at [facility], pt voices understanding and consents to assessment. Pt is A/O x4 and answers all questions appropriately at this time. Pt lying in bed with oxygen on in no distress. Care providers, pharmacy, and demographics verified/updated. Admitting Dx: left pleural effusion, left lung mass, VICKIE PCP:[facility] Specialists:Pt denies. Noted in H&P that pt to have discussion with hospitalist on if he would like f/u for his lung mass. Pt reports he has not seen hospitalist today. Will wait until after this to discuss options for specialists. [facility]erred [facility]acy: [facility] Insurance: [employer] [place] Prescription Benefit: no LNOK: Margaret Marteler, Living Arrangements: Pt lives alone in a mobile home with 8 steps up the hill then 7-8 to enter the home with a rail. Pt reports he is I in ADL's and denies concerns at home. 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 Transportation: Pt drives self and denies concerns with transportation. DME/HHC/SNF: Pt denies having any DME in the home, previous HHC or SNF stays. Pt states no concerns with going home at time of dc. Pt states no further concerns/needs. CM to follow. Advised pt to ask CM if any further question/concerns/needs arise, voices understanding. Pt Goal: Home Plan: Home, follow for any oxygen needs
[2023-04-25] MEDS: Acetaminophen 325 MG Tablet 650 MG PO (21:57)
[2023-04-26] VITALS (17 sets, daily range): BP systolic 75–111; BP diastolic 47–77; PULSE 61–125; RESP 16–24; TEMP 36.6–37.1; O2SAT 93–97
--- NOTE | 2023-04-26 | IMM_PTH ---
PATIENT: IRVING ULLOA LOC: [facility] U#:[id number] AGE/SX: 67/M ROOM: [facility] RE04/24/[address]: Dr. Armani Ayala MD : 1955 BED: 1 DIS: 05/05/2023 SPEC #: [id number] RECD: 04/27/23 14:22 STATUS: GLORIA REQ #: [id number] BENJY: 04/26/23 00:[address]: Parvez Damico DEPT: IMMUNOHISTOCHEMISTRY RECD BY: Donna Saravia ENTERED: 04/27/23 14:24 SP TYPE: IMMUNO OTHR DR: Dr. Shaniqua Waldron, DO Dr. Syed Cabello, DO Tissues: THORACIC FLUID Procedures: RCC (add) NAPSIN A (add) CD10 (add) CEA (add) CK20 (add) CK5-6 (add) CK7 (add) CK8 (add) E-CAD (add) HEP PAR (add) KI-67 (add) P53 (add) TTF1 (add) Vimentin (add) 34BE12 (add) Pankeratin (initial) GATA3 (add) P40 (add) CDX2 (add) PSAP (add) S-100 (add) PHYSICIAN & [place] [id number] SPECIMEN INFORMATION: Tissue Source: Thoracentesis fluid Clinical Info: Left pleural effusion Specimen Number: [id number] CPT code: 07316, 57295 x20 METHODOLOGY: Deparaffinized sections of prefer/formalin-fixed tissue or PAP/DQ stained slides are incubated with monoclonal/polyclonal antibodies/oligonucleotide probes. Localization is made via biotin free immunoperoxidase method. Appropriate controls are performed and reacted as expected. Results on target cell population are indicated in the following table: RESULTS: ANTIBODY / CLONE RESULT AE1-3 (AE1/AE3/PCK26) positive CK7 (OV-TL12/30) positive CK8 (42bnhsJ92) positive CK20 (KS20.8) negative CDX2 (LDV3718C) negative 34BE12 (34BE12) positive S-100 (4C4.9) negative TTF-1 (8G7G3/1) negative Napsin A (Rabbit Polyclonal) negative HepPar (OCh1E5) negative RCC (PN-15) positive PSAP (PASE/4LJ) negative P40 (BC28) negative P53 (DO-7) positive, rare, wild type Ki-67 (30-9) positive, 40% CK5-6 (D5 & 1684) positive, rare CD10 (56C6) positive E-Cad (ECH-6) negative GATA3 (L50-823) negative CEA (11-7/TF-3HB-1) negative Vimentin (V9) positive These tests were developed and their performance characteristics determined by Laboratory. They may not have been cleared or approved by the U.S. Food and Drug Administration. The FDA has determined that such clearance or approval is not necessary. The above immunohistochemical/dualISH markers are ordered and reviewed by the Pathologist. INTERPRETATION: Thoracentesis fluid (cell block): Metastatic carcinoma. See comment. AM:felecia 05/01/2023 Comment: The IHC profile favors a renal primary. Case has been reviewed in consultation with Dr. Stephen who concurs with the above diagnosis. IDC:SJ
[2023-04-26] MEDS: 0.9% Normal Saline (1000mL) 1,000 ML 125 ML IV ×3 (00:17→17:43)
[2023-04-26] MEDS: Acetaminophen 325 MG Tablet 650 MG PO ×2 (05:48→21:58)
[2023-04-26 06:05] LABS: Absolute Lymphocyte Count 0.33 X10^3/uL (0.83-4.51); Basophil# 0.02 X10^3/uL; Basophil% 0.2 % (0-1); Eosinophil# 0.08 X10^3/uL; Eosinophils% 0.9 % (0-5); Hematocrit 42.9 % (40-54); Hemoglobin 12.2 g/dL (13.0-16.5); Lymphocyte # 0.33 X10^3/ul (0.83-4.51); Lymphocyte % 3.9 % (19-41); Mean Corp Hgb Conc 28.4 g/dL (32-36); Mean Corpuscular Hgb 25.1 pg (27.0-32.0); Mean Corpuscular Volume 88.3 fL (80-94); Mean Platelet Vol. 9.2 fl (6.2-12.0); Monocyte# 1.08 X10^3/uL; Monocyte% 12.6 % (0-10); NRBC Flagged by Analyzer 0 % (0-5); Neutrophil % 81.8 % (47-70); POSITIVE DIFFERENTIAL YES; Platelet Count 284 K/mm3 (150-450); RBC Distribution Width CV 17.4 % (11.6-14.6); Red Blood Count 4.86 M/mm3 (4.6-6.2); White Blood Count 8.6 K/mm3 (4.4-11.0)
[2023-04-26 06:42] LABS: ALB/GLOB Ratio 0.5 RATIO (0.9-2.4); Anion Gap 8 (5-15); BUN 26 mg/dL (7-18); BUN/Creat Ratio 14.4 RATIO (10-20); Calcium,Total 8.4 mg/dL (8.5-10.1); Chloride 111 mmol/L (98-107); EST Glomerular Filtration Rate 40 mL/min (>60); Est Glom Filt Rate - Afr Amer 49 mL/min (>60); Estimated Creatinine Clearance 42.25 ml/min; Globulin 4.2 g/dL (2.2-4.2); Glucose 102 mg/dL (74-106); LDH 211 U/L (87-241); Potassium 4.2 mmol/L (3.5-5.1); Protein, Total 6.3 g/dL (6.4-8.2); Sodium Level 138 mmol/L (136-145)
[2023-04-26 06:43] LABS: Differential Indicated SCAN CRITERIA MET
[2023-04-26 06:47] LABS: Differential Comment SCANNED
--- NOTE | 2023-04-26 07:12 | PN.HOSP_ITS ---
Reason for Visit Reason for Visit: Diagnoses Hypovolemia (04/24/23) Other hypotension (04/24/23) Acute kidney failure, unspecified (04/24/23) Other specified abnormal findings of blood chemistry (04/24/23) Other nonspecific abnormal finding of lung field (04/24/23) Subjective Subjective Thoracentesis today. Returned with hypotension and tachycardia. Objective Data Objective Data Vital Signs: Vital Signs Temp Pulse Resp BP Pulse Ox O2 Del Method O2 Flow Rate 36.6 C 110 H 20 H 111/73 94 Nasal Cannula 3 04/26/23 05:53 04/26/23 05:53 04/26/23 05:53 04/26/23 05:53 04/26/23 05:53 04/26/23 05:53 04/26/23 05:53 Oxygen Flow Rate (L/min) 3 Oxygen Delivery Method Nasal Cannula Weight: 73.3 kg Body Mass Index (BMI) 23.1 Intake & Output: Intake and Output for Last 24 Hours 04/24/23 04/25/23 04/26/23 23:59 23:59 23:59 Intake Total 3305 / 3305 2916.67 / 2916.67 906.25 / 906.25 Balance 3305 / 3305 2916.67 / 2916.67 906.25 / 906.25 Lab / Micro Data 04/26/23 05:35 04/26/23 05:35 Labs: Laboratory Results - last 24 hr 04/25/23 06:10: Differential Comment SCANNED 04/26/23 05:35: WBC 8.6, RBC 4.86, Hgb 12.2 L, Hct 42.9, MCV 88.3, MCH 25.1 L, MCHC 28.4 L, RDW Std Deviation 56.0 H, RDW Coeff of Jeffrey 17.4 H, Plt Count 284, MPV 9.2, Immature Gran % (Auto) 0.600, Neut % (Auto) 81.8 H, Lymph % (Auto) 3.9 L, Coryell % (Auto) 12.6 H, Eos % (Auto) 0.9, Baso % (Auto) 0.2, Absolute Neuts (auto) 7.0, Absolute Lymphs (auto) 0.33 L, Nucleated RBC % 0, Differential Comment SCANNED, Sodium 138, Potassium 4.2, Chloride 111 H, Carbon Dioxide 19.0 L, Anion Gap 8, BUN 26 H, Creatinine 1.80 H, Estim Creat Clear Calc 42.25, Est GFR (MDRD) Af Amer 49 L, Est GFR (MDRD) Non-Af 40 L, BUN/Creatinine Ratio 14.4, Glucose 102, Calcium 8.4 L, Lactate Dehydrogenase 211, Total Protein 6.3 L, Globulin 4.2, Albumin/Globulin Ratio 0.5 L Micro: Microbiology 04/24/23 20:40 Mucosa - Nose Respiratory Panel (PCR) - Final 04/24/23 20:40 Nasal Secretion SARS-CoV-2 Antigen (Rapid) - Final Physical Exam Const alert and no apparent distress HEENT head/scalp atraumatic and moist oral mucous membranes Resp Resp Narrative: diminished in LLL. Cardio Cardio Narrative: tachycardic. regular. GI normal to inspection, nondistended, normoactive bowel sounds and soft to palpation Extremity normal to inspection Assessment & Plan Assessment/Plan (1) Mass of left lung: PLAN: Subsequent encounter Has seen pulmonary in March and advised to have a CT-guided Bx at that time--that has not occurred. He does have the SUSANNE mass, but also will a large pleural effusion. Discussed with the patient, his brother and mother. Reviewed the CT images with them showing a large left-sided pleural effusion as well as the mass. Explained the risks associated with doing a CT-guided biopsy of the mass including pneumothorax given that central location. Explained that a thoracentesis would help his breathing but also provide us some potential for diagnosing the underlying malignancy. They are agreeable and understand the risks of pneumothorax and are agreeable to proceeding with a thoracentesis. Thoracentesis performed 04/26. Prelimary is transudative. If negative cytology, will need to follow up with pulmonary. (2) Acute kidney injury: PLAN: Suspect prerenal given dehydration but also possibly complicated by lisinopril/HCTZ Improvement with IVF. Continue to hold lisinopril/HCTZ Patient did have a CTA of his chest with the VICKIE, fortunately creatinine appears to be improving. (3) Hypotension: QUALIFIERS: Hypotension type: hypotension due to hypovolemia Qualified Code(s): I95.89 - Other hypotension; E86.1 - Hypovolemia PLAN: Admission BP was 75/45 Responded well to IVF, suggestive pt was hypovolemic (likely dehydration) (4) Elevated d-dimer: PLAN: Duplex LE negative Wells Score 2.5, making PE unlikely, CTA was done despite this. No evidence of PE on CTA. Likely associated with underlying highly suspected malignancy. No additional work up at this time. (5) Pleural effusion: PLAN: left sided. appears to be transudative cytology pending. check echo PLAN: Plan Chronic conditions: * essential hypertension-again patient's hydrochlorothiazide/lisinopril combination will be held * probable COPD-patient will be placed on aerosol treatments, pulse ox will be monitored VTE prophylaxis: SQ heparin Charges/Coding Visit Charges Inpatient E&M: 21323 Subs Hosp L2
[2023-04-26] MEDS: Ipratropium/Albuterol Sulfate 3 ML AMPUL.NEB INHALATION ×2 (07:19→19:00)
[2023-04-26] MEDS: 0.9% Saline Lock 10 ML Syringe IV (08:03)
--- NOTE | 2023-04-26 08:03 | NURSING ---
Student nurse providing care under direction of her nursing care partner.
[2023-04-26] MEDS: Lidocaine 2% (20 ml mdv) 20 ML Vial INFILT (08:27)
--- NOTE | 2023-04-26 08:27 | FLU_PTH ---
PATIENT: IRVING ULLOA LOC: [facility] U#:[id number] AGE/SX: 67/M ROOM: [facility] RE04/24/[address]: Dr. Armani Ayala MD : 1955 BED: 1 DIS: 05/05/2023 SPEC #: [id number] RECD: 04/26/23 08:43 STATUS: GLORIA REOdin #: [id number] BENJY: 04/26/23 08:[address]: Parvez Damico DEPT: CYTOLOGY RECD BY: Kemal Muñiz ENTERED: 04/26/23 10:32 SP TYPE: Fluid OTHR DR: DO Dr. Syed Cardoso DO Tissues: THORACIC FLUID Procedures: Special Stain Group II Mucicarmine Stain (control) Surgery Specimen Level IV Cytospin Fluid HEADER OPERATION: Ultrasound-guided thoracentesis left PRE-OP DIAGNOSIS: Left pleural effusion TISSUE SUBMITTED: Thoracentesis fluid for cytology DIAGNOSIS CYTOLOGY Thoracentesis fluid for cytology (cytospin and cell block): Metastatic non-small cell carcinoma. See comment. AM:felecia 04/27/2023 COMMENT Immunohistochemistry ([id number]) supports the above diagnosis and favors a renal primary. Mucin stain with matched control was used in the evaluation of this case and is negative for intracellular mucin. Clinical correlation is necessary. Case has been reviewed in consultation with Dr. Stephen who concurs with the above diagnosis. IDC:SJ CYTOLOGY STUDY Slides are reviewed. CYTOLOGY GROSS Received is 75 ml of red cloudy fluid labeled with the patient's name and and designated per the requisition as thoracentesis. Submitted for cytology preparation including cell block. / felecia 04/26/2023 TC:0 CPT: 21836, 61943, 50824
--- NOTE | 2023-04-26 08:35 | RAD_ITS ---
STUDY: X-RAY CHEST REASON FOR EXAM: Male, 67 years old. Post thoracentesis TECHNIQUE: AP inspiration and expiration views. COMPARISON: Comparison is made with prior study dated April 24, 2003. FINDINGS: The patient is status post left thoracentesis. No evidence of pneumothorax. Stable mass in the medial left upper lobe. Residual pleural parenchymal changes at the left lung base. RAD/Chest Insp/Exp 2 View IMPRESSION: No evidence of pneumothorax following the left thoracentesis. Electronically Signed: Enoc Amos MD at 9:34 EDT ,
[2023-04-26 09:07] LABS: Cytology, Body Fluid / CSF SEE PATHOLOGY REPORT
[2023-04-26] MEDS: guaiFENesin 1,200 MG Tablet 1200 MG PO ×2 (10:02→21:55)
--- NOTE | 2023-04-26 10:30 | US_ITS ---
PROCEDURE: ULTRASOUND GUIDED THORACENTESIS. DATE: April 26, 2023. INDICATION: Male, 67 years old. Left pleural effusion. PHYSICIAN: Enoc Amos M.D. PROCEDURE: The risks, benefits, and alternatives to the procedure were explained to the patient. The specific risks of bleeding, infection, and pneumothorax requiring chest tube insertion were discussed and accepted. Written informed consent was obtained. Ultrasonographic evaluation of the left lower pleural space was carried out. An adequate pocket was identified. The patient was placed in the sitting, upright position. The overlying skin was prepped and draped in sterile fashion. 1% lidocaine was administered subcutaneously for local anesthesia. Under ultrasound guidance, a 5 Uzbek thoracentesis needle/catheter system was advanced into the left posterior lower pleural fluid collection. Approximately 2150 mL of bloody fluid was drained. The catheter was removed, and a sterile dressing was applied. A specimen was collected and sent to the laboratory for analysis, as requested by the referring clinician. The patient tolerated the procedure well. A chest x-ray was ordered. US/Thoracentesis W US IMPRESSION: Ultrasound-guided left thoracentesis. Electronically Signed: Enoc Amos MD at 9:07 EDT ,
[2023-04-26 11:50] LABS: Glucose, Body Fluid 105 mg/dL (40-70); LDH,Body Fluid 124 Units/L (Not Establ.); Protein, Body Fluid 2.9 g/dL (Not Establ.)
[2023-04-26] MEDS: 0.9% Normal Saline (1000mL) 1,000 ML 999 ML IV (11:58)
--- NOTE | 2023-04-26 12:36 | ECHOD_ITS ---
Reason For Study: PLEURAL EFFUSION Procedure This was a 2D Doppler, Color Flow transthoracic echocardiogram. The study was technically difficult. Exam performed portable in patient room. Left Ventricle Normal LV size. Left ventricular systolic function is normal. Stage 1 diastolic dysfunction. The estimated ejection fraction is 65 %. Right Ventricle Normal RV size. Normal systolic function. Atria Normal left atrium. Normal right atrium. Mitral Valve Normal mitral valve. Tricuspid Valve Normal tricuspid valve. Aortic Valve Trisinus/trileaflet aortic valve. Pulmonic Valve The pulmonic valve is not well visualized. Great Vessels Normal aortic root. The pulmonary artery is normal size. Normal inferior vena cava. Pericardium/Pleural No pericardial effusion. MMode/2D Measurements & Calculations LVIDd: 3.5 cm IVSd: 0.63 cm LVOT diam: 2.0 cm LVIDs: 1.9 cm LVPWd: 0.64 cm LVOT area: 3.1 cm2 RVDd: 3.7 cm FS: 46.2 % Ao root diam: 3.4 cm LAV(MOD-sp4): 31.7 ml LVAd ap4: 15.3 cm2 LVLd ap4: 6.4 cm EDV(MOD-sp4): 31.0 ml EDV(sp4-el): 31.4 ml LVAs ap4: 7.2 cm2 LVLs ap4: 5.2 cm ESV(MOD-sp4): 8.5 ml ESV(sp4-el): 8.4 ml EF(MOD-sp4): 72.6 % EF(sp4-el): 73.2 % SV(MOD-sp4): 22.5 ml SV(sp4-el): 23.0 ml LA A4 area: 15.9 cm2 LA dimension(2D): 2.8 cm RA A4 area: 11.4 cm2 TAPSE: 2.0 cm Time Measurements MV dec time: 0.13 sec Doppler Measurements & Calculations MV E max corbin: 80.9 cm/sec Lat Peak E' Corbin: 12.0 cm/sec MV dec slope: 644.6 cm/sec2 MV A max corbin: 108.2 cm/sec E/E' lat: 6.7 MV E/A: 0.75 Ao V2 max: 154.5 cm/sec LV V1 max: 113.0 cm/sec Ao max P.5 mmHg LV V1 max P.1 mmHg ELLIE(V,D): 2.3 cm2 ECHO/Echo Complete Interpretation Summary Normal LV size. Left ventricular systolic function is normal. Stage 1 diastolic dysfunction. The estimated ejection fraction is 65 %. Ordering Physician: Parvez Damico Performed By: Alanna Ogden RDCS
[2023-04-26 13:49] LABS: Body Fluid Mononuclear WBC # 0.186 10^3/uL; Body Fluid Mononuclear WBC % 93.5 %; Body Fluid Polynuclear WBC # 0.013 10^3/uL; Body Fluid Polynuclear WBC % 6.5 %; Body Fluid Total Cells Counted 0.295 10^3/ul; White Blood Count/Body Fluid 0.199 10^3/uL
[2023-04-26] MEDS: Heparin Injection (Vial) 5,000 UNIT/ML VIAL 5000 UNIT SC ×2 (14:16→21:50)
[2023-04-26 14:30] LABS: Lymphocytes 13 %; Macrophages 47 %; Mesothelial Cells 15 %; Monocytes 14 %; Neutrophil (Segs) 10 %; Other Cell Type/BF 1 %
[2023-04-26 14:38] LABS: Appearance/Body Fluid CLOUDY; Auto B Fluid Analyzer BKGD Ct COUNTS W/IN LIMITS (W/IN LIMITS); Color/Body Fluid RED; Source- Body Fluid THORACENTESIS
[2023-04-26 14:40] LABS: Body Fluid QC Type(s) BF2Q
--- NOTE | 2023-04-26 16:12 | CHAPLAIN ---
Type of Pastoral Visit _x__ Initial Visit ___ Follow-up Visit ___ On-call Visit ___ General Patient Visit ___ Spiritual Assessment ___ Family Conference ___ Bereavement ___ Rapid Response ___ Code Blue ___ Other (describe below) Pastoral Care Referral From _x__ Patient ___ Family ___ Nurse ___ Physician ___ Office Clerk ___ Guinea Pig Breeder ___ Other (describe below) Sacrament/Intervention _x__ Active listening ___ Anointing ___ Baptist ___ Bereavement ___ Communion ___ Bijal exploration ___ ___ Life review ___ Prayer ___ Reconciliation ___ Sacrament of Sick _x__ Supportive presence ___ Wedding ___ Other (describe below) Pastoral Comments patient declines any particular needs or interventions but is quite talkative about his life, work, interests, and plans for long-term; pt given presence and assurance of support
[2023-04-26] MEDS: 0.9% Normal Saline (500mL Bag) 500 ML 999 ML IV (22:25)
[2023-04-27] VITALS (27 sets, daily range): BP systolic 86–127; BP diastolic 58–99; PULSE 106–150; RESP 12–28; TEMP 36.6–37.6; O2SAT 82–100
[2023-04-27] MEDS: Albuterol 2.5 MG/3 ML VIAL.NEB. INHALATION (00:05)
--- NOTE | 2023-04-27 00:08 | RAD_ITS ---
INDICATION: Dyspnea EXAMINATION/TECHNIQUE: X-RAY - XR Chest 1 View AP portable. 12:14 AM COMPARISON: 04/26/2023 FINDINGS: LINES/DEVICES: None. LUNGS: Interstitial infiltrates bilaterally increased compared to prior. More focal consolidation in the left lung base with left pleural effusion unchanged. Masslike opacity left upper lobe unchanged No pneumothorax. MEDIASTINUM: Unremarkable. CARDIAC SILHOUETTE: Not enlarged. BONES AND SOFT TISSUES: No acute abnormalities. RAD/Chest 1 View (Portable) IMPRESSION: Increased bilateral infiltrates edema versus pneumonia. No change in left basilar consolidation and left pleural effusion, and masslike opacity left upper lobe. Electronically Signed: Genny Davis MD at 1:33 EDT ,
--- NOTE | 2023-04-27 01:11 | VDUE_ITS ---
Reason For Study: Right arm pain Right Proximal Right jugular vein is spontaneous, widely patent, phasic, with no intraluminal echogenicity noted. Right subclavian vein is spontaneous, widely patent, phasic, with no intraluminal echogenicity noted. Right Lower Arm Right radial vein is compressible. Right ulnar vein is compressible. Right Arm Right axillary vein is spontaneous, patent, phasic, competent, compressible and demonstrates augmentation. Right brachial vein is compressible. Right cephalic vein is compressible. Right basilic vein is compressible. Patient Safety Preliminary report given to Dr. Damico. VL/Venous Duplex US, Unilateral Interpretation Summary Deep veins of the right upper extremity are patent and compressible segmentally . There is no evidence of deep vein thrombosis. Superficial veins of the right upper extremity are patent and compressible segm entally. There is no evidence of superficial vein thrombosis. Ordering Physician: Kashmir Hernandez Referring Physician: Shaniqua Waldron Performed By: Crystal Freeman RVT ???
--- NOTE | 2023-04-27 01:11 | NURSING ---
dr serna came up to assess the pt d/t worsening lung sounds, continued low bp even after boluses and a hr in the 120's , also the right hand red hot and swollen.
--- NOTE | 2023-04-27 01:15 | PN_ITS ---
Progress Note ? Nurse reported that patient has worsening lung sounds. Also patient has erythema and swelling of right hand and right lower forearm. Patient was examined at the bedside. Patient with tachycardia. Mild rhonchi throughout. Right hand and right lower forearm erythema thaws and swelling. Impression Right pleural effusion Possible cellulitis/thrombophlebitis/DVT Chest x-ray ordered [facility] [place] for possible cellulitis. Ice already placed on right hand.
[2023-04-27] MEDS: Cefazolin 1 GM/50 ML BAG IV ×2 (01:28→06:46)
--- NOTE | 2023-04-27 05:50 | EKG12_ITS ---
Test Reason : Tachycardia Blood Pressure : / mmHG Vent. Rate : 122 BPM Atrial Rate : 122 BPM P-R Int : 122 ms QRS Dur : 072 ms QT Int : 302 ms P-R-T Axes : 035 067 101 degrees QTc Int : 430 ms Sinus tachycardia Possible Left atrial enlargement Low voltage QRS Nonspecific T wave abnormality Confirmed by WALDEMAR DIETZ, DALLAS ([id number]), editorial assistant CINTHIA SCHMITZ ([id number]) on 05/23/2023 11:52:57 AM Referred By: David Confirmed By:DALLAS MEDEIROS MD
[2023-04-27 06:44] LABS: Troponin-I HS 24 pg/mL (3.0-78.0)
[2023-04-27 06:45] LABS: Anion Gap 7 (5-15); BUN 17 mg/dL (7-18); BUN/Creat Ratio 11.3 RATIO (10-20); Calcium,Total 8.3 mg/dL (8.5-10.1); Chloride 114 mmol/L (98-107); Creatinine, Serum 1.51 mg/dL (0.70-1.30); EST Glomerular Filtration Rate 49 mL/min (>60); Est Glom Filt Rate - Afr Amer 60 mL/min (>60); Estimated Creatinine Clearance 50.36 ml/min; Glucose 105 mg/dL (74-106); Potassium 3.9 mmol/L (3.5-5.1); Sodium Level 140 mmol/L (136-145)
[2023-04-27] MEDS: Heparin Injection (Vial) 5,000 UNIT/ML VIAL 5000 UNIT SC ×3 (06:46→21:53)
[2023-04-27 06:52] LABS: Erythrocyte Sedimentation Rate 52 mm/hr (0-20)
[2023-04-27] MEDS: Ipratropium/Albuterol Sulfate 3 ML AMPUL.NEB INHALATION ×3 (07:02→19:44)
--- NOTE | 2023-04-27 07:28 | PCM.PN.HOSP ---
Reason for Visit Reason for Visit: Diagnoses Hypovolemia (04/24/23) Other hypotension (04/24/23) Pleural effusion, not elsewhere classified (04/24/23) Acute kidney failure, unspecified (04/24/23) Other specified abnormal findings of blood chemistry (04/24/23) Other nonspecific abnormal finding of lung field (04/24/23) Subjective Subjective Placed on BiPAP. Objective Data Objective Data Vital Signs: Vital Signs Temp Pulse Resp BP Pulse Ox O2 Del Method O2 Flow Rate 37.6 C H 111 H 20 H 127/71 H 93 Nasal Cannula 6 04/27/23 05:46 04/27/23 07:06 04/27/23 07:06 04/27/23 05:46 04/27/23 05:47 04/27/23 05:47 04/27/23 05:47 FiO2 35 04/27/23 07:06 Oxygen Flow Rate (L/min) [3] 3 Oxygen Flow Rate (L/min) [2] 3 Oxygen Flow Rate (L/min) [1 ( 3 Initial Baseline)] Oxygen Flow Rate (L/min) 6 Oxygen Delivery Method [3] Nasal Cannula Oxygen Delivery Method [2] Nasal Cannula Oxygen Delivery Method [1 ( Nasal Cannula Initial Baseline)] Oxygen Delivery Method Nasal Cannula Weight: 73.3 kg Body Mass Index (BMI) 23.1 Intake & Output: Intake and Output for Last 24 Hours 04/25/23 04/26/23 04/27/23 23:59 23:59 23:59 Intake Total 2916.67 / 2916.67 3966.12 / 3966.12 1550 / 1550 Output Total 5300 / 5300 650 / 650 Balance 2916.67 / 2916.67 -1333.88 / -1333.88 900 / 900 Lab / Micro Data 04/26/23 05:35 04/27/23 06:15 Labs: Laboratory Results - last 24 hr 04/26/23 08:27: Fluid Source Cancelled 04/26/23 08:27: Fluid Source THORACENTESIS, Fluid Color Cancelled 04/26/23 08:27: Fluid Color RED, Fluid Appearance Cancelled 04/26/23 08:27: Fluid Appearance CLOUDY, Fluid WBC Cancelled 04/26/23 08:27: Fluid WBC 0.199, Fluid RBC Cancelled 04/26/23 08:27: Fluid RBC 0.130, Fluid Tot Cell Count Cancelled 04/26/23 08:27: Fluid Tot Cell Count 0.295, Fld Polynuclear WBCs # Cancelled 04/26/23 08:27: Fld Polynuclear WBCs # 0.013, Fld Polynuclear WBCs % Cancelled 04/26/23 08:27: Fld Polynuclear WBCs % 6.5, Fluid Mononuclear WBCs Cancelled 04/26/23 08:27: Fluid Mononuclear WBCs 0.186, Fld Mononuclear WBCs % Cancelled 04/26/23 08:27: Fld Mononuclear WBCs % 93.5, Fluid Neutrophils Cancelled 04/26/23 08:27: Fluid Neutrophils 10, Fluid Lymphocytes Cancelled 04/26/23 08:27: Fluid Lymphocytes 13, Fluid Monocytes Cancelled 04/26/23 08:27: Fluid Monocytes 14, Fluid Plasma Cells Cancelled, Fluid Macrophages Cancelled 04/26/23 08:27: Fluid Macrophages 47, Fld Mesothelial Cells Cancelled 04/26/23 08:27: Fld Mesothelial Cells 15, Fluid Other Cells Cancelled 04/26/23 08:27: Fluid Other Cells 1, Fl Pathologist Comment Cancelled 04/26/23 08:27: Fl Pathologist Comment May follow, Fluid Glucose 105 H, Fluid Total Protein 2.9, Fluid LDH 124, Fluid Comment 2 Cancelled 04/26/23 08:27: Fluid Comment 2 SEE COMMENT 04/27/23 06:15: ESR 52 H, Sodium 140, Potassium 3.9, Chloride 114 H, Carbon Dioxide 19.0 L, Anion Gap 7, BUN 17, Creatinine 1.51 H, Estim Creat Clear Calc 50.36, Est GFR (MDRD) Af Amer 60, Est GFR (MDRD) Non-Af 49 L, BUN/Creatinine Ratio 11.3, Glucose 105, Calcium 8.3 L, Troponin I High Sens 24, C-React Prot Ext Range 21.10 H Micro: Microbiology 04/26/23 08:27 Fluid - Thoracentesis Fluid Gram Stain - Final 04/24/23 13:17 Blood Culture (Wb) - Anticubital Right Blood Culture - Preliminary No growth in 48 hours. 04/24/23 13:04 Blood Culture (Wb) - Anticubital Right Blood Culture - Preliminary No growth in 48 hours. 04/24/23 20:40 Mucosa - Nose Respiratory Panel (PCR) - Final 04/24/23 20:40 Nasal Secretion SARS-CoV-2 Antigen (Rapid) - Final Radiography Diagnostic Testing: Radiology Impression Chest X-Ray 04/26/23 08:35 IMPRESSION: No evidence of pneumothorax following the left thoracentesis. Electronically Signed: Enoc Amos MD at 9:34 EDT , Thoracentesis Ultrasound 04/26/23 10:30 IMPRESSION: Ultrasound-guided left thoracentesis. Electronically Signed: Enoc Amos MD at 9:07 EDT , Echocardiogram 04/26/23 12:36 Interpretation Summary Normal LV size. Left ventricular systolic function is normal. Stage 1 diastolic dysfunction. The estimated ejection fraction is 65 %. Ordering Physician: Parvez Damico Performed By: Alanna Ogden [facility] Chest X-Ray 04/27/23 00:08 IMPRESSION: Increased bilateral infiltrates edema versus pneumonia. No change in left basilar consolidation and left pleural effusion, and masslike opacity left upper lobe. Electronically Signed: Genny Davis MD at 1:33 EDT , Physical Exam Const alert and no apparent distress Constitutional Narrative: on BiPAP. HEENT head/scalp atraumatic and moist oral mucous membranes Resp normal respiratory effort, no retractions, no use of accessory muscles and clear to auscultation bilaterally Cardio regular rate, regular rhythm, S1 normal heart sound and S2 normal heart sound GI normal to inspection, nondistended, normoactive bowel sounds, soft to palpation, non-tender and non-distended Extremity normal to inspection Assessment & Plan Assessment/Plan (1) Mass of left lung: PLAN: Subsequent encounter Has seen pulmonary in March and advised to have a CT-guided Bx at that time--that has not occurred. He does have the SUSANNE mass, but also will a large pleural effusion. Discussed with the patient, his brother and mother. Reviewed the CT images with them showing a large left-sided pleural effusion as well as the mass. Explained the risks associated with doing a CT-guided biopsy of the mass including pneumothorax given that central location. Explained that a thoracentesis would help his breathing but also provide us some potential for diagnosing the underlying malignancy. They are agreeable and understand the risks of pneumothorax and are agreeable to proceeding with a thoracentesis. Thoracentesis performed 04/26. Prelimary is transudative. If negative cytology, will need to follow up with pulmonary. (2) Acute kidney injury: PLAN: Suspect prerenal given dehydration but also possibly complicated by lisinopril/HCTZ Continue to hold lisinopril/HCTZ Patient did have a CTA of his chest with the VICKIE, fortunately creatinine appears to be improving. (3) Hypotension: QUALIFIERS: Hypotension type: hypotension due to hypovolemia Qualified Code(s): I95.89 - Other hypotension; E86.1 - Hypovolemia PLAN: resolved Admission BP was 75/45 Responded well to IVF, suggestive pt was hypovolemic (likely dehydration) (4) Elevated d-dimer: PLAN: Duplex LE negative Wells Score 2.5, making PE unlikely, CTA was done despite this. No evidence of PE on CTA. Likely associated with underlying highly suspected malignancy. No additional work up at this time. (5) Pleural effusion: PLAN: left sided. appears to be transudative cytology pending. Echo shows an EF of 65% Repeat chest xray showing increased pulmonary vascular congestion v infiltrate Will HLIV. Pt may have developed reexpansion pulmonary edema due to large volume thoracentesis. Continue diuresis. (6) Acute respiratory failure with hypoxia: PLAN: suspect due to reexpansion pulmonary edema from large volume thoracentesis elevated CRP and procalcitonin on BiPAP. Wean as able. will add vanc and pip/tazo in case there is an underlying infection. SCx pending Check strep and legionella antigen resp panel and COVID 19 negative. PLAN: Plan Chronic conditions: essential hypertension-again patient's hydrochlorothiazide/lisinopril combination will be held probable COPD-patient will be placed on aerosol treatments, pulse ox will be monitored VTE prophylaxis: SQ heparin Charges/Coding Visit Charges Inpatient E&M: 36654 Subs Hosp L2
[2023-04-27 08:01] LABS: Troponin-I HS 24 pg/mL (3.0-78.0)
--- NOTE | 2023-04-27 08:01 | NURSING ---
on step down monitor per nursing measure.
[2023-04-27 08:15] LABS: Lactic Acid 0.5 mmol/L (0.4-1.9)
[2023-04-27] MEDS: 0.9% Saline Lock 10 ML Syringe IV ×3 (08:29→22:10)
[2023-04-27] MEDS: Furosemide 40 MG/4 ML Vial IV ×2 (08:29→18:48)
[2023-04-27 08:31] LABS: Procalcitonin 0.31 ng/mL (0.00-0.09)
--- NOTE | 2023-04-27 09:09 | NURSING ---
aware per primary RN Dr. Damico stating will transfer to PCU. blending supervisor Garrison briceno.
--- NOTE | 2023-04-27 09:15 | NURSING ---
Primary RN informed room 128 for transfer.
--- NOTE | 2023-04-27 09:45 | NURSING ---
pt states he would like me to notify his mother of transfer.
--- NOTE | 2023-04-27 09:48 | NURSING ---
spoke with pt mother Margaret and updated on status and transfer to [facility] room number.
--- NOTE | 2023-04-27 10:20 | NURSING ---
pt transported on step down monitor and bipap by this nurse, respiratory therapist, and certified technician. pt remained a&Ox3 bedside update given to domingo PICKERING.
[2023-04-27] MEDS: Metoprolol Tartrate 25 MG Tablet PO (10:40)
[2023-04-27] MEDS: guaiFENesin 1,200 MG Tablet 1200 MG PO ×2 (10:41→21:53)
[2023-04-27] MEDS: 0.9% Normal Saline (250mL Bag) 250 ML 15 ML IV (14:14)
[2023-04-27] MEDS: Vancomycin HCl 1,750 MG in 0.9% Normal Saline (500mL Bag) 500 ML 250 MG IV (15:56)
--- NOTE | 2023-04-27 16:11 | PCM.RX.CS ---
Consult Antibiotic Management Pharmacy has been consulted to manage selected antiobiotic: Vancomycin Type of Intervention Type of Consult: New start Suspected Infection Suspected Infection: Pneumonia Prior Doses of Antibiotics Prior Doses of Antibiotics Received/Current Regimen: Patient received vancomycin 1750 mg IV x 1 on 04/27/23 @ 1556 Labs Labs: Sodium 140 mmol/L (136-145) 04/27/23 06:15 Potassium 3.9 mmol/L (3.5-5.1) 04/27/23 06:15 Chloride 114 mmol/L (98-107) H 04/27/23 06:15 Carbon Dioxide 19.0 mmol/L (21.0-32.0) L 04/27/23 06:15 Anion Gap 7 (5-15) 04/27/23 06:15 BUN 17 mg/dL (7-18) 04/27/23 06:15 Creatinine 1.51 mg/dL (0.70-1.30) H 04/27/23 06:15 Est GFR (MDRD) Af Amer 60 mL/min (>60) 04/27/23 06:15 Est GFR (MDRD) Non-Af 49 mL/min (>60) L 04/27/23 06:15 BUN/Creatinine Ratio 11.3 RATIO (10-20) 04/27/23 06:15 Glucose 105 mg/dL (74-106) 04/27/23 06:15 Microbiology Microbiology: Microbiology 04/26/23 08:27 Fluid - Thoracentesis Fluid Gram Stain - Final 04/24/23 13:17 Blood Culture (Wb) - Anticubital Right Blood Culture - Preliminary No growth in 48 hours. 04/24/23 13:04 Blood Culture (Wb) - Anticubital Right Blood Culture - Preliminary No growth in 48 hours. 04/24/23 20:40 Mucosa - Nose Respiratory Panel (PCR) - Final 04/24/23 20:40 Nasal Secretion SARS-CoV-2 Antigen (Rapid) - Final Dosing Weight Weight used for dosin.3 kg Estimated Creatinine Clearance Estimated Creatinine Clearance: 50 Goal Trough Goal Trough: 15-20 mcg/mL Pharmacy Plan for Drug Dosing Pharmacy Plan for Drug Dosing: Patient received 1750 mg IV loading dose, will follow with vancomycin 750 mg IV Q12H thereafter with a trough prior to the 4th dose. Pharmacy Service will continue to monitor and adjust dosing as required. Follow-Up Labs Follow-Up Labs: Trough: Vancomycin Date/Time Labs Ordered Labs to be done on [date and time ordered]: 04/29/23 @ 3877
[2023-04-27] MEDS: Metoprolol Tartrate 50 MG Tablet PO (19:02)
[2023-04-27] MEDS: Acetaminophen 325 MG Tablet 650 MG PO (20:42)
[2023-04-27] MEDS: Piperacil/Tazobactam 3.375 GM in 0.9% Normal Saline (50mL MB+) 50 ML IV (21:52)
--- NOTE | 2023-04-27 23:36 | CPS ---
RT offered bipap for HS pt. Pt declined bipap use. Pt remains on 4L nasal o2 95%
[2023-04-28] VITALS (13 sets, daily range): BP systolic 78–114; BP diastolic 56–71; PULSE 98–121; RESP 19–27; TEMP 36.3–36.9; O2SAT 4–96
[2023-04-28] MEDS: Piperacil/Tazobactam 3.375 GM in 0.9% Normal Saline (50mL MB+) 50 ML IV ×3 (06:27→23:07)
[2023-04-28] MEDS: Vancomycin HCl 750 MG in 0.9% Normal Saline (250mL Bag) 250 ML 250 MG IV ×2 (06:27→16:50)
[2023-04-28] MEDS: Heparin Injection (Vial) 5,000 UNIT/ML VIAL 5000 UNIT SC ×3 (06:28→22:57)
[2023-04-28 06:53] LABS: Absolute Lymphocyte Count 0.36 X10^3/uL (0.83-4.51); Absolute Neutrophil Count 5.6 X10^3/uL (2.0-7.7); Basophil# 0.04 X10^3/uL; Basophil% 0.5 % (0-1); Eosinophil# 0.22 X10^3/uL; Hematocrit 39.3 % (40-54); Hemoglobin 11.5 g/dL (13.0-16.5); Lymphocyte # 0.36 X10^3/ul (0.83-4.51); Lymphocyte % 4.9 % (19-41); Mean Corp Hgb Conc 29.3 g/dL (32-36); Mean Corpuscular Hgb 24.9 pg (27.0-32.0); Mean Corpuscular Volume 85.1 fL (80-94); Mean Platelet Vol. 8.8 fl (6.2-12.0); Monocyte# 1.05 X10^3/uL; Monocyte% 14.4 % (0-10); NRBC Flagged by Analyzer 0 % (0-5); Neutrophil # 5.59 X10^3/uL (2.7-7.7); Neutrophil % 76.7 % (47-70); POSITIVE DIFFERENTIAL YES; Platelet Count 238 K/mm3 (150-450); RBC Distribution Width CV 17.2 % (11.6-14.6); RBC Distribution Width SD 53.1 fl (35.1-43.9); Red Blood Count 4.62 M/mm3 (4.6-6.2); White Blood Count 7.3 K/mm3 (4.4-11.0)
[2023-04-28 06:57] LABS: Differential Indicated SCAN CRITERIA MET
[2023-04-28] MEDS: Ipratropium/Albuterol Sulfate 3 ML AMPUL.NEB INHALATION ×2 (07:05→19:43)
[2023-04-28 07:18] LABS: Anion Gap 7 (5-15); BUN 19 mg/dL (7-18); BUN/Creat Ratio 12.5 RATIO (10-20); Calcium,Total 8.6 mg/dL (8.5-10.1); Chloride 107 mmol/L (98-107); Creatinine, Serum 1.52 mg/dL (0.70-1.30); EST Glomerular Filtration Rate 49 mL/min (>60); Est Glom Filt Rate - Afr Amer 59 mL/min (>60); Estimated Creatinine Clearance 50.03 ml/min; Glucose 94 mg/dL (74-106); Potassium 3.8 mmol/L (3.5-5.1); Sodium Level 138 mmol/L (136-145)
[2023-04-28 07:19] LABS: Differential Comment SCANNED
--- NOTE | 2023-04-28 08:52 | PN.HOSP_ITS ---
Reason for Visit Reason for Visit: Diagnoses Hypovolemia (04/24/23) Other hypotension (04/24/23) Pleural effusion, not elsewhere classified (04/24/23) Acute respiratory failure with hypoxia (04/24/23) Acute kidney failure, unspecified (04/24/23) Other specified abnormal findings of blood chemistry (04/24/23) Other nonspecific abnormal finding of lung field (04/24/23) Subjective Subjective Feels ok. No new complaints. Objective Data Objective Data Vital Signs: Vital Signs Temp Pulse Resp BP Pulse Ox O2 Del Method O2 Flow Rate 36.6 C 121 H 27 H 83/58 L 89 Nasal Cannula 3 04/28/23 08:46 04/28/23 08:46 04/28/23 08:46 04/28/23 08:46 04/28/23 08:46 04/28/23 08:46 04/28/23 08:46 FiO2 35 04/27/23 07:06 Oxygen Flow Rate (L/min) [3] 3 Oxygen Flow Rate (L/min) [2] 3 Oxygen Flow Rate (L/min) [1 ( 3 Initial Baseline)] Oxygen Flow Rate (L/min) 3 Oxygen Delivery Method [3] Nasal Cannula Oxygen Delivery Method [2] Nasal Cannula Oxygen Delivery Method [1 ( Nasal Cannula Initial Baseline)] Oxygen Delivery Method Nasal Cannula Weight: 73.3 kg Body Mass Index (BMI) 23.1 Intake & Output: Intake and Output for Last 24 Hours 04/26/23 04/27/23 04/28/23 23:59 23:59 23:59 Intake Total 3966.12 / 3966.12 3121.875 / 3121.875 50 / 50 Output Total 5300 / 5300 4000 / 4000 750 / 750 Balance -1333.88 / -1333.88 -878.125 / -878.125 -700 / -700 Lab / Micro Data 04/28/23 06:32 04/28/23 06:32 Labs: Laboratory Results - last 24 hr 04/28/23 06:32: WBC 7.3, RBC 4.62, Hgb 11.5 L, Hct 39.3 L, MCV 85.1, MCH 24.9 L, MCHC 29.3 L, RDW Std Deviation 53.1 H, RDW Coeff of Jeffrey 17.2 H, Plt Count 238, MPV 8.8, Immature Gran % (Auto) 0.500, Neut % (Auto) 76.7 H, Lymph % (Auto) 4.9 L, [place] % (Auto) 14.4 H, Eos % (Auto) 3.0, Baso % (Auto) 0.5, Absolute Neuts (auto) 5.6, Absolute Lymphs (auto) 0.36 L, Nucleated RBC % 0, Differential Comment SCANNED, Sodium 138, Potassium 3.8, Chloride 107, Carbon Dioxide 24.0, Anion Gap 7, BUN 19 H, Creatinine 1.52 H, Estim Creat Clear Calc 50.03, Est GFR (MDRD) Af Amer 59 L, Est GFR (MDRD) Non-Af 49 L, BUN/Creatinine Ratio 12.5, Glucose 94, Calcium 8.6 Micro: Microbiology 04/27/23 15:30 Urine, Random Legionella Antigen - Final 04/27/23 15:30 Urine, Random Streptococcus pneumoniae Antigen (M - Final 04/26/23 08:27 Fluid - Thoracentesis Fluid Gram Stain - Final 04/24/23 13:17 Blood Culture (Wb) - Anticubital Right Blood Culture - Preliminary No growth in 48 hours. 04/24/23 13:04 Blood Culture (Wb) - Anticubital Right Blood Culture - Preliminary No growth in 48 hours. 04/24/23 20:40 Mucosa - Nose Respiratory Panel (PCR) - Final 04/24/23 20:40 Nasal Secretion SARS-CoV-2 Antigen (Rapid) - Final Radiography Diagnostic Testing: Radiology Impression Venous Doppler Study 04/27/23 01:11 Interpretation Summary Deep veins of the right upper extremity are patent and compressible segmentally. There is no evidence of deep vein thrombosis. Superficial veins of the right upper extremity are patent and compressible segmentally. There is no evidence of superficial vein thrombosis. Ordering Physician: Kashmir Hernandez Referring Physician: Shaniqua Waldron Performed By: Crsytal Freeman RVT ??? Physical Exam Const alert and no apparent distress HEENT head/scalp atraumatic, moist oral mucous membranes and oropharynx normal Neck no JVD Resp normal respiratory effort and no retractions Resp Narrative: diminished. Cardio regular rate, regular rhythm, S1 normal heart sound and S2 normal heart sound GI normal to inspection, nondistended, normoactive bowel sounds Extremity normal to inspection Assessment & Plan Assessment/Plan (1) Mass of left lung: PLAN: Subsequent encounter Has seen pulmonary in March and advised to have a CT-guided Bx at that time--that has not occurred. He does have the SUSANNE mass, but also will a large pleural effusion. Discussed with the patient, his brother and mother. Reviewed the CT images with them showing a large left-sided pleural effusion as well as the mass. Explained the risks associated with doing a CT-guided biopsy of the mass including pneumothorax given that central location. Explained that a thoracentesis would help his breathing but also provide us some potential for diagnosing the underlying malignancy. They are agreeable and understand the risks of pneumothorax and are agreeable to proceeding with a thoracentesis. Thoracentesis performed 04/26. Prelimary is transudative. If negative cytology, will need to follow up with pulmonary. (2) Acute kidney injury: PLAN: Suspect prerenal given dehydration but also possibly complicated by l isinopril/HCTZ Continue to hold lisinopril/HCTZ Patient did have a CTA of his chest with the VICKIE, fortunately creatinine appears to be improving. (3) Hypotension: QUALIFIERS: Hypotension type: hypotension due to hypovolemia Qualified Code(s): I95.89 - Other hypotension; E86.1 - Hypovolemia PLAN: Admission BP was 75/45 Responded well to IVF, suggestive pt was hypovolemic (likely dehydration) DC furosemide check cortisol. (4) Elevated d-dimer: PLAN: Duplex LE negative Wells Score 2.5, making PE unlikely, CTA was done despite this. No evidence of PE on CTA. Likely associated with underlying highly suspected malignancy. No additional work up at this time. (5) Pleural effusion: PLAN: left sided. appears to be transudative cytology pending. Echo shows an EF of 65% Repeat chest xray showing increased pulmonary vascular congestion v infiltrate Will HLIV. Pt may have developed reexpansion pulmonary edema due to large volume thoracentesis. (6) Acute respiratory failure with hypoxia: PLAN: suspect due to reexpansion pulmonary edema from large volume thoracentesis elevated CRP and procalcitonin on BiPAP. Wean as able. will add vanc and pip/tazo in case there is an underlying infection. SCx pending strep and legionella antigen negative resp panel and COVID 19 negative. PLAN: Plan Chronic conditions: * essential hypertension-again patient's hydrochlorothiazide/lisinopril combination will be held * probable COPD-patient will be placed on aerosol treatments, pulse ox will be monitored VTE prophylaxis: SQ heparin Charges/Coding Visit Charges Inpatient E&M: 72829 Subs Hosp L2
[2023-04-28] MEDS: Furosemide 40 MG/4 ML Vial IV (11:07)
[2023-04-28] MEDS: guaiFENesin 1,200 MG Tablet 1200 MG PO ×2 (11:08→22:57)
[2023-04-28] MEDS: 0.9% Saline Lock 10 ML Syringe IV ×3 (11:08→16:52)
[2023-04-29] VITALS (18 sets, daily range): BP systolic 81–107; BP diastolic 59–84; PULSE 106–129; RESP 16–24; TEMP 36.3–36.8; O2SAT 86–99
[2023-04-29 04:38] LABS: Anion Gap 6 (5-15); BUN 21 mg/dL (7-18); BUN/Creat Ratio 13.7 RATIO (10-20); Calcium,Total 8.6 mg/dL (8.5-10.1); Chloride 105 mmol/L (98-107); Creatinine, Serum 1.53 mg/dL (0.70-1.30); EST Glomerular Filtration Rate 49 mL/min (>60); Est Glom Filt Rate - Afr Amer 59 mL/min (>60); Glucose 92 mg/dL (74-106); Potassium 3.7 mmol/L (3.5-5.1); Sodium Level 139 mmol/L (136-145)
[2023-04-29 04:43] LABS: Vancomycin, Trough Level 23.9 ug/mL (5.0-15.0)
--- NOTE | 2023-04-29 04:52 | PCM.RX.CS ---
Consult Antibiotic Management Pharmacy has been consulted to manage selected antiobiotic: Vancomycin Type of Intervention Type of Consult: Follow-up Labs Labs: Sodium 139 mmol/L (136-145) 04/29/23 03:45 Potassium 3.7 mmol/L (3.5-5.1) 04/29/23 03:45 Chloride 105 mmol/L (98-107) 04/29/23 03:45 Carbon Dioxide 28.0 mmol/L (21.0-32.0) 04/29/23 03:45 Anion Gap 6 (5-15) 04/29/23 03:45 BUN 21 mg/dL (7-18) H 04/29/23 03:45 Creatinine 1.53 mg/dL (0.70-1.30) H 04/29/23 03:45 Est GFR (MDRD) Af Amer 59 mL/min (>60) L 04/29/23 03:45 Est GFR (MDRD) Non-Af 49 mL/min (>60) L 04/29/23 03:45 BUN/Creatinine Ratio 13.7 RATIO (10-20) 04/29/23 03:45 Glucose 92 mg/dL (74-106) 04/29/23 03:45 Vancomycin Trough 23.9 ug/mL (5.0-15.0) H 04/29/23 03:45 Microbiology Microbiology: Microbiology 04/26/23 08:27 Fluid - Thoracentesis Fluid Gram Stain - Final 04/26/23 08:27 Fluid - Thoracentesis Fluid Anaerobic Culture - Preliminary No growth in 48 hours. 04/27/23 15:30 Urine, Random Legionella Antigen - Final 04/27/23 15:30 Urine, Random Streptococcus pneumoniae Antigen (M - Final 04/24/23 13:17 Blood Culture (Wb) - Anticubital Right Blood Culture - Preliminary No growth in 48 hours. 04/24/23 13:04 Blood Culture (Wb) - Anticubital Right Blood Culture - Preliminary No growth in 48 hours. 04/24/23 20:40 Mucosa - Nose Respiratory Panel (PCR) - Final 04/24/23 20:40 Nasal Secretion SARS-CoV-2 Antigen (Rapid) - Final Dosing Weight Weight used for dosin.3 kg Estimated Creatinine Clearance Estimated Creatinine Clearance: 50 Goal Trough Goal Trough: 15-20 mcg/mL Pharmacy Plan for Drug Dosing Pharmacy Plan for Drug Dosing: Vancomycin trough level of 23.9, drawn 11 hours post-dose, was high. Current dosing was held. A random vanco level will be drawn in 12 hours, and further dosing determined from that result. Pharmacy Service will continue to monitor and adjust dosing as required. Follow-Up Labs Follow-Up Labs: Trough: Vancomycin (random) Date/Time Labs Ordered Labs to be done on [date and time ordered]: 04/29/23 @1600
[2023-04-29] MEDS: Piperacil/Tazobactam 3.375 GM in 0.9% Normal Saline (50mL MB+) 50 ML IV ×3 (06:18→22:10)
[2023-04-29] MEDS: Heparin Injection (Vial) 5,000 UNIT/ML VIAL 5000 UNIT SC ×3 (06:20→22:10)
[2023-04-29] MEDS: Ipratropium/Albuterol Sulfate 3 ML AMPUL.NEB INHALATION ×3 (08:14→19:50)
--- NOTE | 2023-04-29 08:26 | PN.HOSP_ITS ---
Reason for Visit Reason for Visit: Diagnoses Hypovolemia (04/24/23) Other hypotension (04/24/23) Pleural effusion, not elsewhere classified (04/24/23) Acute respiratory failure with hypoxia (04/24/23) Acute kidney failure, unspecified (04/24/23) Other specified abnormal findings of blood chemistry (04/24/23) Other nonspecific abnormal finding of lung field (04/24/23) Subjective Subjective Breathing well. Objective Data Objective Data Vital Signs: Vital Signs Temp Pulse Resp BP Pulse Ox O2 Del Method O2 Flow Rate 36.8 C 110 H 18 95/64 96 Nasal Cannula 3 04/29/23 04:54 04/29/23 04:54 04/29/23 04:54 04/29/23 04:54 04/29/23 04:54 04/29/23 04:54 04/29/23 04:54 FiO2 35 04/27/23 07:06 Oxygen Flow Rate (L/min) [3] 3 Oxygen Flow Rate (L/min) [2] 3 Oxygen Flow Rate (L/min) [1 ( 3 Initial Baseline)] Oxygen Flow Rate (L/min) 3 Oxygen Delivery Method [3] Nasal Cannula Oxygen Delivery Method [2] Nasal Cannula Oxygen Delivery Method [1 ( Nasal Cannula Initial Baseline)] Oxygen Delivery Method Nasal Cannula Weight: 73.3 kg Body Mass Index (BMI) 23.1 Intake & Output: Intake and Output for Last 24 Hours 04/27/23 04/28/23 04/29/23 23:59 23:59 23:59 Intake Total 3121.875 / 3121.875 1290 / 1290 50 / 50 Output Total 4000 / 4000 1600 / 1600 300 / 300 Balance -878.125 / -878.125 -310 / -310 -250 / -250 Lab / Micro Data 04/28/23 06:32 04/29/23 03:45 Labs: Laboratory Results - last 24 hr 04/29/23 03:45: Sodium 139, Potassium 3.7, Chloride 105, Carbon Dioxide 28.0, Anion Gap 6, BUN 21 H, Creatinine 1.53 H, Estim Creat Clear Calc 49.70, Est GFR (MDRD) Af Amer 59 L, Est GFR (MDRD) Non-Af 49 L, BUN/Creatinine Ratio 13.7, Glucose 92, Calcium 8.6, Cortisol 19.30, Vancomycin Trough 23.9 H Micro: Microbiology 04/26/23 08:27 Fluid - Thoracentesis Fluid Gram Stain - Final 04/26/23 08:27 Fluid - Thoracentesis Fluid Body Fluid Culture - Final Culture exhibits no growth. 04/26/23 08:27 Fluid - Thoracentesis Fluid Anaerobic Culture - Preliminary No growth in 48 hours. 04/27/23 15:30 Urine, Random Legionella Antigen - Final 04/27/23 15:30 Urine, Random Streptococcus pneumoniae Antigen (M - Final 04/24/23 13:17 Blood Culture (Wb) - Anticubital Right Blood Culture - Preliminary No growth in 48 hours. 04/24/23 13:04 Blood Culture (Wb) - Anticubital Right Blood Culture - Preliminary No growth in 48 hours. 04/24/23 20:40 Mucosa - Nose Respiratory Panel (PCR) - Final 04/24/23 20:40 Nasal Secretion SARS-CoV-2 Antigen (Rapid) - Final Physical Exam Resp normal respiratory effort, no retractions, no use of accessory muscles and clear to auscultation bilaterally Cardio regular rate and regular rhythm Cardio Narrative: tachycardic GI normal to inspection, nondistended, normoactive bowel sounds, soft to palpation, non-tender and non-distended Neuro Sensorium / Orientation: awake and alert Assessment & Plan Assessment/Plan (1) Mass of left lung: PLAN: Subsequent encounter Has seen pulmonary in March and advised to have a CT-guided Bx at that time--that has not occurred. He does have the SUSANNE mass, but also will a large pleural effusion. Discussed with the patient, his brother and mother. Reviewed the CT images with them showing a large left-sided pleural effusion as well as the mass. Explained the risks associated with doing a CT-guided biopsy of the mass including pneumothorax given that central location. Explained that a thoracentesis would help his breathing but also provide us some potential for diagnosing the underlying malignancy. They are agreeable and understand the risks of pneumothorax and are agreeable to proceeding with a thoracentesis. Thoracentesis performed 04/26. Prelimary is transudative. If negative cytology, will need to follow up with pulmonary. (2) Acute kidney injury: PLAN: Suspect prerenal given dehydration but also possibly complicated by lisinopril/HCTZ Continue to hold lisinopril/HCTZ Patient did have a CTA of his chest with the VICKIE, fortunately creatinine appears to be improving. (3) Hypotension: QUALIFIERS: Hypotension type: hypotension due to hypovolemia Qualified Code(s): I95.89 - Other hypotension; E86.1 - Hypovolemia PLAN: Admission BP was 75/45 Responded well to IVF, suggestive pt was hypovolemic (likely dehydration) DC furosemide check cortisol. (4) Elevated d-dimer: PLAN: Duplex LE negative Wells Score 2.5, making PE unlikely, CTA was done despite this. No evidence of PE on CTA. Likely associated with underlying highly suspected malignancy. No additional work up at this time. (5) Pleural effusion: PLAN: left sided. appears to be transudative cytology pending. Echo shows an EF of 65% Repeat chest xray showing increased pulmonary vascular congestion v infiltrate Will HLIV. Pt may have developed reexpansion pulmonary edema due to large volume thoracentesis. (6) Acute respiratory failure with hypoxia: PLAN: suspect due to reexpansion pulmonary edema from large volume thoracentesis elevated CRP and procalcitonin on BiPAP. Wean as able. will add vanc and pip/tazo in case there is an underlying infection. SCx pending strep and legionella antigen negative resp panel and COVID 19 negative. (7) Tachycardia: PLAN: Ongoing. Unclear etiology. Continue metoprolol PLAN: Plan Chronic conditions: * essential hypertension-again patient's hydrochlorothiazide/lisinopril combination will be held * probable COPD-patient will be placed on aerosol treatments, pulse ox will be monitored VTE prophylaxis: SQ heparin Charges/Coding Visit Charges Inpatient E&M: 98343 Subs Hosp L2
[2023-04-29] MEDS: Metoprolol Tartrate 50 MG Tablet PO (10:24)
[2023-04-29] MEDS: guaiFENesin 1,200 MG Tablet 1200 MG PO ×2 (10:25→22:09)
[2023-04-29] MEDS: Acetaminophen 325 MG Tablet 650 MG PO (18:21)
[2023-04-29] MEDS: Bisacodyl 5 MG Tablet 10 MG PO (18:21)
[2023-04-29 18:46] LABS: Vancomycin, Random Level 19.4 ug/mL (0.0-15.0)
--- NOTE | 2023-04-29 19:47 | PCM.RX.CS ---
Consult Antibiotic Management Pharmacy has been consulted to manage selected antiobiotic: Vancomycin Type of Intervention Type of Consult: Follow-up Labs Labs: Sodium 139 mmol/L (136-145) 04/29/23 03:45 Potassium 3.7 mmol/L (3.5-5.1) 04/29/23 03:45 Chloride 105 mmol/L (98-107) 04/29/23 03:45 Carbon Dioxide 28.0 mmol/L (21.0-32.0) 04/29/23 03:45 Anion Gap 6 (5-15) 04/29/23 03:45 BUN 21 mg/dL (7-18) H 04/29/23 03:45 Creatinine 1.53 mg/dL (0.70-1.30) H 04/29/23 03:45 Est GFR (MDRD) Af Amer 59 mL/min (>60) L 04/29/23 03:45 Est GFR (MDRD) Non-Af 49 mL/min (>60) L 04/29/23 03:45 BUN/Creatinine Ratio 13.7 RATIO (10-20) 04/29/23 03:45 Glucose 92 mg/dL (74-106) 04/29/23 03:45 Vancomycin Trough 23.9 ug/mL (5.0-15.0) H 04/29/23 03:45 Random Vancomycin 19.4 ug/mL (0.0-15.0) H 04/29/23 18:00 Microbiology Microbiology: Microbiology 04/24/23 13:17 Blood Culture (Wb) - Anticubital Right Blood Culture - Final No growth in 5 days. 04/24/23 13:04 Blood Culture (Wb) - Anticubital Right Blood Culture - Final No growth in 5 days. 04/26/23 08:27 Fluid - Thoracentesis Fluid Gram Stain - Final 04/26/23 08:27 Fluid - Thoracentesis Fluid Body Fluid Culture - Final Culture exhibits no growth. 04/26/23 08:27 Fluid - Thoracentesis Fluid Anaerobic Culture - Preliminary No growth in 48 hours. 04/27/23 15:30 Urine, Random Legionella Antigen - Final 04/27/23 15:30 Urine, Random Streptococcus pneumoniae Antigen (M - Final 04/24/23 20:40 Mucosa - Nose Respiratory Panel (PCR) - Final 04/24/23 20:40 Nasal Secretion SARS-CoV-2 Antigen (Rapid) - Final Dosing Weight Weight used for dosin.3 kg Estimated Creatinine Clearance Estimated Creatinine Clearance: 50 Goal Trough Goal Trough: 15-20 mcg/mL Pharmacy Plan for Drug Dosing Pharmacy Plan for Drug Dosing: The random vancomycin level drawn 04/29 @1800 was 19.4. This was within the target range, but still rather high for being 25.2 hours since last dose. Per dosing calculator, a new dose of 1000mg q24h should give an estimated trough of 16.1. This will be initiated 04/30 @0200 - slight delay to avoid high level and to easily coincide with concurrent Zosyn infusions. A trough level will be drawn prior to 3rd dose of the new regimen. Pharmacy Service will continue to monitor and adjust dosing as required. Follow-Up Labs Follow-Up Labs: Trough: Vancomycin Date/Time Labs Ordered Labs to be done on [date and time ordered]: 05/02/23 @0130
--- NOTE | 2023-04-29 23:02 | CPS ---
Pt refused PAP therapy for the night
[2023-04-30] VITALS (13 sets, daily range): BP systolic 81–108; BP diastolic 57–83; PULSE 97–124; RESP 16–26; TEMP 36.4–37; O2SAT 86–100
[2023-04-30] MEDS: Vancomycin IV 1,000 MG/200 ML BAG 200 MG IV (01:44)
[2023-04-30] MEDS: Heparin Injection (Vial) 5,000 UNIT/ML VIAL 5000 UNIT SC ×3 (05:13→21:00)
[2023-04-30] MEDS: Piperacil/Tazobactam 3.375 GM in 0.9% Normal Saline (50mL MB+) 50 ML IV ×2 (05:13→13:07)
[2023-04-30] MEDS: Ipratropium/Albuterol Sulfate 3 ML AMPUL.NEB INHALATION ×3 (07:39→19:29)
--- NOTE | 2023-04-30 08:58 | PN.HOSP_ITS ---
Reason for Visit Reason for Visit: Diagnoses Hypovolemia (04/24/23) Other hypotension (04/24/23) Pleural effusion, not elsewhere classified (04/24/23) Acute respiratory failure with hypoxia (04/24/23) Acute kidney failure, unspecified (04/24/23) Tachycardia, unspecified (04/24/23) Other specified abnormal findings of blood chemistry (04/24/23) Other nonspecific abnormal finding of lung field (04/24/23) Subjective Subjective Feels well. Breathing well. Objective Data Objective Data Vital Signs: Vital Signs Temp Pulse Resp BP Pulse Ox O2 Del Method O2 Flow Rate 36.4 C L 115 H 24 H 108/83 H 90 Nasal Cannula 5 04/30/23 04:00 04/30/23 07:39 04/30/23 07:39 04/30/23 04:00 04/30/23 07:39 04/30/23 08:37 04/30/23 08:37 FiO2 35 04/27/23 07:06 Oxygen Flow Rate (L/min) [3] 3 Oxygen Flow Rate (L/min) [2] 3 Oxygen Flow Rate (L/min) [1 ( 3 Initial Baseline)] Oxygen Flow Rate (L/min) [ 4 AMBULATING with Oxygen #3] Oxygen Flow Rate (L/min) [ 3 AMBULATING with Oxygen #2] Oxygen Flow Rate (L/min) [ 2 AMBULATING with Oxygen #1] Oxygen Flow Rate (L/min) [At 2 REST with Oxygen] Oxygen Flow Rate (L/min) 5 Oxygen Delivery Method [3] Nasal Cannula Oxygen Delivery Method [2] Nasal Cannula Oxygen Delivery Method [1 ( Nasal Cannula Initial Baseline)] Oxygen Delivery Method Nasal Cannula Weight: 73.3 kg Body Mass Index (BMI) 23.1 Intake & Output: Intake and Output for Last 24 Hours 04/28/23 04/29/23 04/30/23 23:59 23:59 23:59 Intake Total 1290 / 1290 750 / 750 250 / 250 Output Total 1600 / 1600 300 / 300 Balance -310 / -310 450 / 450 250 / 250 Lab / Micro Data 04/28/23 06:32 04/29/23 03:45 Labs: Laboratory Results - last 24 hr 04/29/23 18:00: Random Vancomycin 19.4 H Micro: Microbiology 04/24/23 13:17 Blood Culture (Wb) - Anticubital Right Blood Culture - Final No growth in 5 days. 04/24/23 13:04 Blood Culture (Wb) - Anticubital Right Blood Culture - Final No growth in 5 days. 04/26/23 08:27 Fluid - Thoracentesis Fluid Gram Stain - Final 04/26/23 08:27 Fluid - Thoracentesis Fluid Body Fluid Culture - Final Culture exhibits no growth. 04/26/23 08:27 Fluid - Thoracentesis Fluid Anaerobic Culture - Preliminary No growth in 48 hours. 04/27/23 15:30 Urine, Random Legionella Antigen - Final 04/27/23 15:30 Urine, Random Streptococcus pneumoniae Antigen (M - Final 04/24/23 20:40 Mucosa - Nose Respiratory Panel (PCR) - Final 04/24/23 20:40 Nasal Secretion SARS-CoV-2 Antigen (Rapid) - Final Physical Exam Const alert and no apparent distress HEENT head/scalp atraumatic Resp normal respiratory effort and no retractions Cardio Cardio Narrative: tachycardic. regular. Extremity normal to inspection Neuro Sensorium / Orientation: awake and alert Psych affect normal Assessment & Plan Assessment/Plan (1) Mass of left lung: PLAN: Subsequent encounter Has seen pulmonary in March and advised to have a CT-guided Bx at that time--that has not occurred. He does have the SUSANNE mass, but also will a large pleural effusion. Discussed with the patient, his brother and mother. Reviewed the CT images with them showing a large left-sided pleural effusion as well as the mass. Explained the risks associated with doing a CT-guided biopsy of the mass including pn eumothorax given that central location. Explained that a thoracentesis would help his breathing but also provide us some potential for diagnosing the underlying malignancy. They are agreeable and understand the risks of pneumothorax and are agreeable to proceeding with a thoracentesis. Thoracentesis performed 04/26. Prelimary is transudative. If negative cytology, will need to follow up with pulmonary. (2) Acute kidney injury: PLAN: Suspect prerenal given dehydration but also possibly complicated by lisinopril/HCTZ Continue to hold lisinopril/HCTZ Patient did have a CTA of his chest with the VICKIE, fortunately creatinine appears to be improving. (3) Hypotension: QUALIFIERS: Hypotension type: hypotension due to hypovolemia Qualified Code(s): I95.89 - Other hypotension; E86.1 - Hypovolemia PLAN: Ongoing Cortisol WNL Echo WNL (4) Elevated d-dimer: PLAN: Duplex LE negative Wells Score 2.5, making PE unlikely, CTA was done despite this. No evidence of PE on CTA. Likely associated with underlying highly suspected malignancy. No additional work up at this time. (5) Pleural effusion: PLAN: left sided. appears to be transudative cytology pending. Echo shows an EF of 65% Repeat chest xray showing increased pulmonary vascular congestion v infiltrate Will HLIV. Pt may have developed reexpansion pulmonary edema due to large volume thoracentesis. (6) Acute respiratory failure with hypoxia: PLAN: suspect due to reexpansion pulmonary edema from large volume thoracentesis elevated CRP and procalcitonin on BiPAP. Wean as able. will add vanc and pip/tazo in case there is an underlying infection. SCx pending strep and legionella antigen negative resp panel and COVID 19 negative. DC abx and observe. (7) Tachycardia: PLAN: Ongoing. Unclear etiology. Continue metoprolol Will DC albuterol and observe. PLAN: Plan Chronic conditions: * essential hypertension-again patient's hydrochlorothiazide/lisinopril combination will be held * probable COPD-patient will be placed on aerosol treatments, pulse ox will be monitored VTE prophylaxis: SQ heparin Charges/Coding Visit Charges Inpatient E&M: 83283 Subs Hosp L2
[2023-04-30] MEDS: guaiFENesin 1,200 MG Tablet 1200 MG PO ×2 (09:25→21:01)
[2023-04-30] MEDS: Metoprolol Tartrate 50 MG Tablet PO ×2 (13:07→21:00)
--- NOTE | 2023-04-30 23:04 | CPS ---
Refused PAP therapy for the night.
[2023-05-01] VITALS (14 sets, daily range): BP systolic 93–109; BP diastolic 61–79; PULSE 93–122; RESP 18–22; TEMP 36.3–36.6; O2SAT 84–100
[2023-05-01] MEDS: Heparin Injection (Vial) 5,000 UNIT/ML VIAL 5000 UNIT SC ×3 (05:18→20:06)
[2023-05-01] MEDS: Ipratropium/Albuterol Sulfate 3 ML AMPUL.NEB INHALATION ×2 (06:59→18:58)
[2023-05-01] MEDS: Metoprolol Tartrate 50 MG Tablet PO ×2 (08:46→20:05)
[2023-05-01] MEDS: guaiFENesin 1,200 MG Tablet 1200 MG PO ×2 (08:59→20:05)
[2023-05-01] MEDS: Acetaminophen 325 MG Tablet 650 MG PO ×2 (08:59→20:01)
[2023-05-01 09:37] LABS: Pathologist Comment/Body Fluid Reviewed
--- NOTE | 2023-05-01 12:31 | PCM.PN.HOSP ---
Reason for Visit Reason for Visit: Diagnoses Hypovolemia (04/24/23) Other hypotension (04/24/23) Pleural effusion, not elsewhere classified (04/24/23) Acute respiratory failure with hypoxia (04/24/23) Acute kidney failure, unspecified (04/24/23) Tachycardia, unspecified (04/24/23) Other specified abnormal findings of blood chemistry (04/24/23) Other nonspecific abnormal finding of lung field (04/24/23) Subjective Subjective Patient is a 67-year-old gentleman admitted with shortness of breath and lightheadedness. CTA of the chest obtained on admission did show moderate-sized left pleural effusion with left basilar atelectasis. 2.9 cm x 3.1 cm mass in the left upper lobe. Left hilar lymphadenopathy. Mild enlargement of mediastinal lymphadenopathy admitted to a monitored bed for subsequent management Objective Data Objective Data Vital Signs: Vital Signs Temp Pulse Resp BP Pulse Ox O2 Del Method O2 Flow Rate 97.3 F L 122 H 20 H 104/66 85 Nasal Cannula 2 05/01/23 09:00 05/01/23 09:00 05/01/23 09:00 05/01/23 09:00 05/01/23 10:00 05/01/23 09:00 05/01/23 10:00 FiO2 35 04/27/23 07:06 Oxygen Flow Rate (L/min) [3] 3 Oxygen Flow Rate (L/min) [2] 3 Oxygen Flow Rate (L/min) [1 ( 3 Initial Baseline)] Oxygen Flow Rate (L/min) [ 5 AMBULATING with Oxygen #3] Oxygen Flow Rate (L/min) [ 4 AMBULATING with Oxygen #2] Oxygen Flow Rate (L/min) [ 2 AMBULATING with Oxygen #1] Oxygen Flow Rate (L/min) [At 2 REST with Oxygen] Oxygen Flow Rate (L/min) 5 Oxygen Delivery Method [3] Nasal Cannula Oxygen Delivery Method [2] Nasal Cannula Oxygen Delivery Method [1 ( Nasal Cannula Initial Baseline)] Oxygen Delivery Method Nasal Cannula Weight: 73.3 kg Body Mass Index (BMI) 23.1 Intake & Output: Intake and Output for Last 24 Hours 04/29/23 04/30/23 05/01/23 23:59 23:59 23:59 Intake Total 750 / 750 1048.75 / 1048.75 Output Total 300 / 300 240 / 240 Balance 450 / 450 808.75 / 808.75 Lab / Micro Data 04/28/23 06:32 04/29/23 03:45 Labs: Laboratory Results - last 24 hr 04/26/23 08:27: Fl Pathologist Comment Reviewed Micro: Microbiology 04/26/23 08:27 Fluid - Thoracentesis Fluid Gram Stain - Final 04/26/23 08:27 Fluid - Thoracentesis Fluid Body Fluid Culture - Final Culture exhibits no growth. 04/26/23 08:27 Fluid - Thoracentesis Fluid Anaerobic Culture - Final No growth in 5 days. 04/24/23 13:17 Blood Culture (Wb) - Anticubital Right Blood Culture - Final No growth in 5 days. 04/24/23 13:04 Blood Culture (Wb) - Anticubital Right Blood Culture - Final No growth in 5 days. 04/27/23 15:30 Urine, Random Legionella Antigen - Final 04/27/23 15:30 Urine, Random Streptococcus pneumoniae Antigen (M - Final 04/24/23 20:40 Mucosa - Nose Respiratory Panel (PCR) - Final 04/24/23 20:40 Nasal Secretion SARS-CoV-2 Antigen (Rapid) - Final Physical Exam Narrative GENERAL: cooperative HEENT: Atraumatic; normocephalic EYES; Anicteric, Normal Conjunctiva NECK; supple, normal thyroid, RESPIRATORY: Diminished to auscultation CARDIOVASCULAR: Regular S1 S2, GI: soft, normoactive bowel sounds, : No Renal angle tenderness; EXTREMITIES: No edema, no clubbing, MUSCULOSKELETAL: no muscle wasting NEURO: Awake; no lateralizing signs. SKIN: No Rash PSYCH; Flat affect Assessment & Plan Assessment/Plan (1) Mass of left lung: PLAN: Plan Patient is a 67-year-old gentleman admitted with shortness of breath and lightheadedness. CTA of the chest obtained on admission did show moderate-sized left pleural effusion with left basilar atelectasis. 2.9 cm x 3.1 cm mass in the left upper lobe. Left hilar lymphadenopathy. Mild enlargement of mediastinal lymphadenopathy admitted to a monitored bed for subsequent management 1. Lung mass ?CTA of the chest obtained on admission did show moderate-sized left pleural effusion with left basilar atelectasis. 2.9 cm x 3.1 cm mass in the left upper lobe. Left hilar lymphadenopathy. Mild enlargement of mediastinal lymphadenopathy admitted to a monitored bed for subsequent management. Patient was also found to have concomitant pleural effusion for which patient underwent ultrasound-guided thoracocentesis. Cytology did show metastatic non-small cell carcinoma. Plan is for patient to follow-up with pulmonary medicine and oncology as outpatient 2. Left-sided pleural effusion ? Patient underwent ultrasound guided thoracocentesis by interventional radiology. Approximately 2150 mL of bloody fluid was drained. Fluid analysis including cytology sent. Cytology did show metastatic non-small cell carcinoma 3. Acute hypoxia ? Secondary to #1 and #2 patient remains on supplemental oxygen 4. Chronic kidney disease stage III ? Patient kidney function has remained stable through out his hospital stay at 1.5 acute kidney injury ruled out 5. Dyslipidemia -Patient is on statin therapy, continued at home dose 6. Hypertension - Blood pressure controlled, home medications continued with dose adjustment as needed 7. DVT prophylaxis ? SC heparin Time spent in the patient's overall evaluation,decision-making process, review of diagnostic data, adjustment of management, discussion with other providers, nursing nursing and ancillary staff involved in patient's care documentation, 50 Minutes Charges/Coding Visit Charges Inpatient E&M: 64450 Subs Hosp L3
[2023-05-01 16:09] LABS: Amylase Body Fluid 34 U/L (.); pH, Body Fluid 11254 7.1 (Not Estab.)
[2023-05-02] VITALS (8 sets, daily range): BP systolic 99–111; BP diastolic 58–79; PULSE 90–118; RESP 18–24; TEMP 36.6–37; O2SAT 82–96
[2023-05-02 02:23] LABS: Vancomycin, Trough Level 9.4 ug/mL (5.0-15.0)
--- NOTE | 2023-05-02 05:18 | NURSING ---
pt up to [facility] [place] this am. was on 6l hi-flow nc, with exertion pt quickly desatted to 78%. o2 increased to 8l to sustain 84% and then to 10l to sustain @92%. when pt returned to bed, o2 was reduced to 5l hi-flow.
[2023-05-02] MEDS: Heparin Injection (Vial) 5,000 UNIT/ML VIAL 5000 UNIT SC ×3 (05:37→21:38)
[2023-05-02 06:42] LABS: Absolute Lymphocyte Count 0.38 X10^3/uL (0.83-4.51); Absolute Neutrophil Count 6.1 X10^3/uL (2.0-7.7); Basophil# 0.04 X10^3/uL; Basophil% 0.5 % (0-1); Eosinophil# 0.28 X10^3/uL; Eosinophils% 3.5 % (0-5); Hematocrit 38.7 % (40-54); Hemoglobin 11.4 g/dL (13.0-16.5); Lymphocyte # 0.38 X10^3/ul (0.83-4.51); Lymphocyte % 4.7 % (19-41); Mean Corp Hgb Conc 29.5 g/dL (32-36); Mean Corpuscular Hgb 25.4 pg (27.0-32.0); Mean Corpuscular Volume 86.2 fL (80-94); Mean Platelet Vol. 8.8 fl (6.2-12.0); Monocyte# 1.13 X10^3/uL; Monocyte% 14.1 % (0-10); NRBC Flagged by Analyzer 0 % (0-5); Neutrophil # 6.14 X10^3/uL (2.7-7.7); Neutrophil % 76.5 % (47-70); POSITIVE DIFFERENTIAL YES; Platelet Count 246 K/mm3 (150-450); RBC Distribution Width CV 17.5 % (11.6-14.6); RBC Distribution Width SD 54.9 fl (35.1-43.9); Red Blood Count 4.49 M/mm3 (4.6-6.2)
[2023-05-02 06:43] LABS: Differential Indicated SCAN CRITERIA MET
[2023-05-02 07:07] LABS: Anisocytosis 1+
[2023-05-02 07:12] LABS: Anion Gap 4 (5-15); BUN 33 mg/dL (7-18); BUN/Creat Ratio 25.4 RATIO (10-20); Calcium,Total 8.7 mg/dL (8.5-10.1); Chloride 102 mmol/L (98-107); EST Glomerular Filtration Rate 59 mL/min (>60); Est Glom Filt Rate - Afr Amer 71 mL/min (>60); Estimated Creatinine Clearance 58.49 ml/min; Glucose 97 mg/dL (74-106); Magnesium 1.8 mg/dL (1.6-2.6); Potassium 4.1 mmol/L (3.5-5.1); Sodium Level 136 mmol/L (136-145)
--- NOTE | 2023-05-02 07:52 | PN.HOSP_ITS ---
Reason for Visit Reason for Visit: Diagnoses Hypovolemia (04/24/23) Other hypotension (04/24/23) Pleural effusion, not elsewhere classified (04/24/23) Acute respiratory failure with hypoxia (04/24/23) Acute kidney failure, unspecified (04/24/23) Tachycardia, unspecified (04/24/23) Other specified abnormal findings of blood chemistry (04/24/23) Other nonspecific abnormal finding of lung field (04/24/23) Subjective Subjective Patient seen, plan is for patient to be assessed for possible discharge. Case was discussed with Dr. Crocker with oncology patient will follow-up with him as outpatient Objective Data Objective Data Vital Signs: Vital Signs Temp Pulse Resp BP Pulse Ox O2 Del Method O2 Flow Rate 97.9 F 93 20 H 99/58 L 94 Nasal Cannula 5 05/02/23 03:59 05/02/23 03:59 05/02/23 03:59 05/02/23 03:59 05/02/23 03:59 05/02/23 03:59 05/02/23 03:59 FiO2 35 04/27/23 07:06 Oxygen Flow Rate (L/min) [3] 3 Oxygen Flow Rate (L/min) [2] 3 Oxygen Flow Rate (L/min) [1 ( 3 Initial Baseline)] Oxygen Flow Rate (L/min) [ 5 AMBULATING with Oxygen #3] Oxygen Flow Rate (L/min) [ 4 AMBULATING with Oxygen #2] Oxygen Flow Rate (L/min) [ 2 AMBULATING with Oxygen #1] Oxygen Flow Rate (L/min) [At 2 REST with Oxygen] Oxygen Flow Rate (L/min) 5 Oxygen Delivery Method [3] Nasal Cannula Oxygen Delivery Method [2] Nasal Cannula Oxygen Delivery Method [1 ( Nasal Cannula Initial Baseline)] Oxygen Delivery Method Nasal Cannula Weight: 73.3 kg Body Mass Index (BMI) 23.1 Intake & Output: Intake and Output for Last 24 Hours 04/30/23 05/01/23 05/02/23 23:59 23:59 23:59 Intake Total 1048.75 / 1048.75 0 / 0 Output Total 240 / 240 Balance 808.75 / 808.75 0 / 0 Lab / Micro Data 05/02/23 06:13 05/02/23 06:13 Labs: Laboratory Results - last 24 hr 04/26/23 08:27: Fluid pH 7.1, Fl Pathologist Comment Reviewed, Fluid Amylase 34 05/02/23 01:52: Vancomycin Trough 9.4 05/02/23 06:13: WBC 8.0, RBC 4.49 L, Hgb 11.4 L, Hct 38.7 L, MCV 86.2, MCH 25.4 L, MCHC 29.5 L, RDW Std Deviation 54.9 H, RDW Coeff of Jeffrey 17.5 H, Plt Count 246, MPV 8.8, Immature Gran % (Auto) 0.700, Neut % (Auto) 76.5 H, Lymph % (Auto) 4.7 L, [place] % (Auto) 14.1 H, Eos % (Auto) 3.5, Baso % (Auto) 0.5, Absolute Neuts (auto) 6.1, Absolute Lymphs (auto) 0.38 L, Nucleated RBC % 0, Anisocytosis 1+, Sodium 136, Potassium 4.1, Chloride 102, Carbon Dioxide 30.0, Anion Gap 4 L, BUN 33 H, Creatinine 1.30, Estim Creat Clear Calc 58.49, Est GFR (MDRD) Af Amer 71, Est GFR (MDRD) Non-Af 59 L, BUN/Creatinine Ratio 25.4 H, Glucose 97, Calcium 8.7, Phosphorus 3.0, Magnesium 1.8 Micro: Microbiology 04/26/23 08:27 Fluid - Thoracentesis Fluid Gram Stain - Final 04/26/23 08:27 Fluid - Thoracentesis Fluid Body Fluid Culture - Final Culture exhibits no growth. 04/26/23 08:27 Fluid - Thoracentesis Fluid Anaerobic Culture - Final No growth in 5 days. 04/24/23 13:17 Blood Culture (Wb) - Anticubital Right Blood Culture - Final No growth in 5 days. 04/24/23 13:04 Blood Culture (Wb) - Anticubital Right Blood Culture - Final No growth in 5 days. 04/27/23 15:30 Urine, Random Legionella Antigen - Final 04/27/23 15:30 Urine, Random Streptococcus pneumoniae Antigen (M - Final 04/24/23 20:40 Mucosa - Nose Respiratory Panel (PCR) - Final 04/24/23 20:40 Nasal Secretion SARS-CoV-2 Antigen (Rapid) - Final Physical Exam Narrative GENERAL: cooperative HEENT: Atraumatic; normocephalic EYES; Anicteric, Normal Conjunctiva NECK; supple, normal thyroid, RESPIRATORY: Diminished to auscultation CARDIOVASCULAR: Regular S1 S2, GI: soft, normoactive bowel sounds, : No Renal angle tenderness; EXTREMITIES: No edema, no clubbing, MUSCULOSKELETAL: no muscle wasting NEURO: Awake; no lateralizing signs. SKIN: No Rash PSYCH; Flat affect HEENT normocephalic, head/scalp atraumatic, hearing grossly normal bilaterally, moist oral mucous membranes and oropharynx normal Eyes PERRL, EOMs intact bilaterally and conjunctivae normal Neck supple, no JVD, thyroid normal and no carotid bruits General: trachea midline Resp normal respiratory effort, no retractions, no use of accessory muscles and clear to auscultation bilaterally Resp Narrative: diminished. Auscultation: wheezes expiratory wheezes, scattered wheezes and throughout; Negative for rales or rhonchi Cardio regular rate, regular rhythm, S1 normal heart sound, S2 normal heart sound, no murmurs, no rub and no gallops Cardio Narrative: tachycardic. regular. GI normal to inspection, nondistended, normoactive bowel sounds, soft to palpation, non-tender and non-distended Extremity normal to inspection and no clubbing, cyanosis or edema Skin no rashes or lesions noted General Skin Exam: no breakdown Neuro oriented x3, CN's II-XII intact bilaterally, no focal motor deficits and no sensory deficits noted Sensorium / Orientation: awake and alert Speech: speech normal Psych affect normal Assessment & Plan Assessment/Plan (1) Mass of left lung: PLAN: Plan Patient is a 67-year-old gentleman admitted with shortness of breath and lightheadedness. CTA of the chest obtained on admission did show moderate-sized left pleural effusion with left basilar atelectasis. 2.9 cm x 3.1 cm mass in the left upper lobe. Left hilar lymphadenopathy. Mild enlargement of mediastinal lymphadenopathy admitted to a monitored bed for subsequent management 1. Lung mass ?CTA of the chest obtained on admission did show moderate-sized left pleural effusion with left basilar atelectasis. 2.9 cm x 3.1 cm mass in the left upper lobe. Left hilar lymphadenopathy. Mild enlargement of mediastinal lymphadenopathy admitted to a monitored bed for subsequent management. Patient was also found to have concomitant pleural effusion for which patient underwent ultrasound-guided thoracocentesis. Cytology did show metastatic non-small cell carcinoma. Plan is for patient to follow-up with pulmonary medicine and onco logy as outpatient -05/02/2023; Patient seen, plan is for patient to be assessed for possible discharge. Case was discussed with Dr. Crocker with oncology patient will follow-up with him as outpatient 2. Left-sided pleural effusion ? Patient underwent ultrasound guided thoracocentesis by interventional radiology. Approximately 2150 mL of bloody fluid was drained. Fluid analysis including cytology sent. Cytology did show metastatic non-small cell carcinoma 3. Acute hypoxia ? Secondary to #1 and #2 patient remains on supplemental oxygen ? 05/02/2023. Patient was assessed for home oxygen which she did qualify he will need portability since he is active with at home as well as in the community 4. Chronic kidney disease stage III ? Patient kidney function has remained stable through out his hospital stay at 1.5 acute kidney injury ruled out 5. Dyslipidemia -Patient is on statin therapy, continued at home dose 6. Hypertension - Blood pressure controlled, home medications continued with dose adjustment as needed 7. DVT prophylaxis ? SC heparin Time spent in the patient's overall evaluation,decision-making process, review of diagnostic data, adjustment of management, discussion with other providers, nursing nursing and ancillary staff involved in patient's care documentation, 35 Minutes Charges/Coding Visit Charges Inpatient E&M: 86147 Subs Hosp L2
[2023-05-02] MEDS: Ipratropium/Albuterol Sulfate 3 ML AMPUL.NEB INHALATION ×2 (07:56→19:38)
[2023-05-02] MEDS: Metoprolol Tartrate 50 MG Tablet PO ×2 (09:14→21:38)
[2023-05-02] MEDS: 0.9% Saline Lock 10 ML Syringe IV ×2 (09:14→14:32)
[2023-05-02] MEDS: guaiFENesin 1,200 MG Tablet 1200 MG PO ×2 (09:14→21:38)
--- NOTE | 2023-05-02 11:23 | DS.PCM_ITS ---
Providers Date of Admission: 04/24/23 Date of Discharge: 05/02/23 Primary Care Physician: Dr. Shaniqua Waldron, DO Consultations 05/01/23 12:36 Consult: [place] / Pulmonary Medicine Routine Consulting Provider: Pulmonary Medicine apolinar Thompson Reason for Consult: lung amss EMERGENT Consult: No MD Notified: Yes Date Notified: 05/01/23 Time Notified: 12:36 Method of Notification: Text Reason For Visit: LEFT PLEURAL EFFUSION, LEFT LUNG MASS, VICKIE Diagnosis Discharge Diagnosis (1) Mass of left lung: Status: Acute Code(s): R91.8 - Other nonspecific abnormal finding of lung field Plan Patient is a 67-year-old gentleman admitted with shortness of breath and lightheadedness. CTA of the chest obtained on admission did show moderate-sized left pleural effusion with left basilar atelectasis. 2.9 cm x 3.1 cm mass in the left upper lobe. Left hilar lymphadenopathy. Mild enlargement of mediastinal lymphadenopathy admitted to a monitored bed for subsequent management 1. Lung mass ?CTA of the chest obtained on admission did show moderate-sized left pleural effusion with left basilar atelectasis. 2.9 cm x 3.1 cm mass in the left upper lobe. Left hilar lymphadenopathy. Mild enlargement of mediastinal lymphadenopathy admitted to a monitored bed for subsequent management. Patient was also found to have concomitant pleural effusion for which patient underwent ultrasound-guided thoracocentesis. Cytology did show metastatic non-small cell carcinoma. Plan is for patient to follow-up with pulmonary medicine and oncology as outpatient -05/02/2023; Patient seen, plan is for patient to be assessed for possible discharge. Case was discussed with Dr. Crocker with oncology patient will follow-up with him as outpatient 2. Left-sided pleural effusion ? Patient underwent ultrasound guided thoracocentesis by interventional radiology. Approximately 2150 mL of bloody fluid was drained. Fluid analysis including cytology sent. Cytology did show metastatic non-small cell carcinoma 3. Acute hypoxia ? Secondary to #1 and #2 patient remains on supplemental oxygen ? 05/02/2023. Patient was assessed for home oxygen which she did qualify he will need portability since he is active with at home as well as in the community 4. Chronic kidney disease stage III ? Patient kidney function has remained stable through out his hospital stay at 1.5 acute kidney injury ruled out 5. Dyslipidemia -Patient is on statin therapy, continued at home dose 6. Hypertension - Blood pressure controlled, home medications continued with dose adjustment as needed 7. DVT prophylaxis ? SC heparin Time spent in the patient's overall evaluation,decision-making process, review of diagnostic data, adjustment of management, discussion with other providers, nursing nursing and ancillary staff involved in patient's care documentation, 35 Minutes Medications at Discharge Home Medications metoprolol tartrate 25 mg tablet 25 mg PO BID 03/26/18 rosuvastatin 40 mg tablet 40 mg PO DAILY 03/27/23 guaifenesin 1,200 mg tablet, extended release 12 hr (Mucinex) 1,200 mg PO BID COUGH 04/24/23 omega 1-oqo-djr-fish oil 300 mg-1,000 mg capsule (Fish Oil) 1 cap PO BID 04/24/23 Hospital Course Summary of Care Provided Minutes Spent on Discharge: 35 Physical Exam Narrative GENERAL: cooperative HEENT: Atraumatic; normocephalic EYES; Anicteric, Normal Conjunctiva NECK; supple, normal thyroid, RESPIRATORY: Diminished to auscultation CARDIOVASCULAR: Regular S1 S2, GI: soft, normoactive bowel sounds, : No Renal angle tenderness; EXTREMITIES: No edema, no clubbing, MUSCULOSKELETAL: no muscle wasting NEURO: Awake; no lateralizing signs. SKIN: No Rash PSYCH; Flat affect Weight / BMI Weight Weight: 73.3 kg Body Mass Index (BMI) 23.1 ABG / Lab / Microbiology Data 05/02/23 06:13 05/02/23 06:13 Laboratory: Laboratory Results - last 24 hr 04/26/23 08:27: Fluid pH 7.1, Fluid Amylase 34, Miscellaneous Cytology SEE PATHOLOGY REPORT 05/02/23 01:52: Vancomycin Trough 9.4 05/02/23 06:13: WBC 8.0, RBC 4.49 L, Hgb 11.4 L, Hct 38.7 L, MCV 86.2, MCH 25.4 L, MCHC 29.5 L, RDW Std Deviation 54.9 H, RDW Coeff of Jeffrey 17.5 H, Plt Count 246, MPV 8.8, Immature Gran % (Auto) 0.700, Neut % (Auto) 76.5 H, Lymph % (Auto) 4.7 L, [place] % (Auto) 14.1 H, Eos % (Auto) 3.5, Baso % (Auto) 0.5, Absolute Neuts (auto) 6.1, Absolute Lymphs (auto) 0.38 L, Nucleated RBC % 0, Anisocytosis 1+, Sodium 136, Potassium 4.1, Chloride 102, Carbon Dioxide 30.0, Anion Gap 4 L, BUN 33 H, Creatinine 1.30, Estim Creat Clear Calc 58.49, Est GFR (MDRD) Af Amer 71, Est GFR (MDRD) Non-Af 59 L, BUN/Creatinine Ratio 25.4 H, Glucose 97, Calcium 8.7, Phosphorus 3.0, Magnesium 1.8 Microbiology: Microbiology 04/26/23 08:27 Fluid - Thoracentesis Fluid Gram Stain - Final 04/26/23 08:27 Fluid - Thoracentesis Fluid Body Fluid Culture - Final Culture exhibits no growth. 04/26/23 08:27 Fluid - Thoracentesis Fluid Anaerobic Culture - Final No growth in 5 days. 04/24/23 13:17 Blood Culture (Wb) - Anticubital Right Blood Culture - Final No growth in 5 days. 04/24/23 13:04 Blood Culture (Wb) - Anticubital Right Blood Culture - Final No growth in 5 days. 04/27/23 15:30 Urine, Random Legionella Antigen - Final 04/27/23 15:30 Urine, Random Streptococcus pneumoniae Antigen (M - Final 04/24/23 20:40 Mucosa - Nose Respiratory Panel (PCR) - Final 04/24/23 20:40 Nasal Secretion SARS-CoV-2 Antigen (Rapid) - Final D/C Instructions Discharge Diet: No restrictions Discharge Activity: Return to Normal Activity Call your doctor if you observe: Fever of 101 or Higher, Shortness of breath, Fainting spells and Chest pain Meaningful Use Info Meaningful Use Diagnoses (Choose all that apply): None applicable Discharge Plan Admission Admit Date/Time: 04/24/23 15:36 Attending Provider: Armani Ayala Primary Care Provider: Shaniqua Waldron Consulting Providers: Syed Cabello; Parvez Damico; Rajesh Ibarra; Magen Alexander; Zander Zimmer; Kyle Galvez; Kal Rogers; Joann Mancuso OUTSIDE PROPERTY AGENT Instructions Forms: Work / School Excuse Patient Instructions: RAD RN Thoracentesis Dc Discharge Orders/Prescriptions Prescriptions: Continued rosuvastatin 40 mg tablet 40 mg PO DAILY metoprolol tartrate 25 MG tablet 25 mg PO BID omega 4-xke-rwy-fish oil [Fish Oil] 300-1,000 mg capsule 1 cap PO BID Mucinex 1,200 mg tablet extended release 12hr 1,200 mg PO BID Discontinued lisinopril-hydrochlorothiazide 20-25 mg tablet 1 tab PO DAILY Referrals / Follow Up: [facility] [Provider Group] - 05/04/23 10:30 am Rajesh Ibarra MD [Med Staff - Active Staff] - Within 1 Week Nash Crocker MD [Med Staff - Active Staff] - Within 1 Week Karen Allen NP, OUTSIDE PROPERTY AGENT-C [Non-Staff] - 05/09/23 1:00 pm Disposition Disposition (needs filled in before D/C Order can be placed): Home, Self Care Charges/Coding Visit Charges Inpatient E&M: 79232 Disch Hosp >30min
--- NOTE | 2023-05-02 13:07 | RAD_ITS ---
STUDY: X-RAY CHEST REASON FOR EXAM: Male, 67 years old. dyspnea TECHNIQUE: AP portable COMPARISON: April 27, 2023 FINDINGS: Noncalcified mass in the left upper lobe measuring approximately 3 x 2.5 cm. Mild chronic interstitial thickening in the right lower lobe Moderate-sized left pleural effusion and consolidation of left lower lobe Heart is enlarged. Asymmetric left hilar prominence possibly due to adenopathy. Normal visualized pulmonary arteries. Normal visualized aortic arch and descending thoracic aorta. Dorsal spine demonstrates degenerative changes. Normal visualized ribs, clavicles, and shoulders. There is no demonstrated abnormality of the visualized soft tissue structures of the upper abdomen. The left pleural effusion has increased in size since previous exam and there is increasing consolidation in left lower lobe RAD/Chest 1 View IMPRESSION: Probable left upper lobe neoplasm with hilar adenopathy and left pleural effusion which has increased in size since prior study. Electronically Signed: Sudhir Burden MD at 22:43 EDT ,
[2023-05-02] MEDS: Furosemide 100 MG/10 ML Vial 80 MG IV (14:32)
[2023-05-02] MEDS: Acetaminophen 325 MG Tablet 650 MG PO (21:36)
[2023-05-03] VITALS (13 sets, daily range): BP systolic 96–138; BP diastolic 66–98; PULSE 102–113; RESP 18–26; TEMP 36.3–36.9; O2SAT 84–96
[2023-05-03] MEDS: Ipratropium/Albuterol Sulfate 3 ML AMPUL.NEB INHALATION ×3 (06:46→19:51)
[2023-05-03 06:49] LABS: Absolute Lymphocyte Count 0.56 X10^3/uL (0.83-4.51); Absolute Neutrophil Count 5.2 X10^3/uL (2.0-7.7); Basophil# 0.05 X10^3/uL; Basophil% 0.7 % (0-1); Eosinophil# 0.29 X10^3/uL; Hematocrit 41.1 % (40-54); Hemoglobin 11.8 g/dL (13.0-16.5); Lymphocyte # 0.56 X10^3/ul (0.83-4.51); Lymphocyte % 7.7 % (19-41); Mean Corp Hgb Conc 28.7 g/dL (32-36); Mean Corpuscular Hgb 24.7 pg (27.0-32.0); Monocyte# 1.11 X10^3/uL; Monocyte% 15.2 % (0-10); NRBC Flagged by Analyzer 0 % (0-5); Neutrophil # 5.24 X10^3/uL (2.7-7.7); Neutrophil % 71.7 % (47-70); POSITIVE DIFFERENTIAL YES; Platelet Count 263 K/mm3 (150-450); RBC Distribution Width CV 17.4 % (11.6-14.6); RBC Distribution Width SD 54.3 fl (35.1-43.9); Red Blood Count 4.78 M/mm3 (4.6-6.2); White Blood Count 7.3 K/mm3 (4.4-11.0)
[2023-05-03 07:00] LABS: Differential Indicated SCAN CRITERIA MET
[2023-05-03 07:18] LABS: Anisocytosis 1+
[2023-05-03 07:19] LABS: Anion Gap 5 (5-15); BUN 31 mg/dL (7-18); Calcium,Total 9.2 mg/dL (8.5-10.1); Chloride 102 mmol/L (98-107); Creatinine, Serum 1.15 mg/dL (0.70-1.30); EST Glomerular Filtration Rate 68 mL/min (>60); Est Glom Filt Rate - Afr Amer 82 mL/min (>60); Estimated Creatinine Clearance 66.12 ml/min; Glucose 99 mg/dL (74-106); Potassium 4.2 mmol/L (3.5-5.1); Sodium Level 139 mmol/L (136-145)
[2023-05-03] MEDS: Heparin Injection (Vial) 5,000 UNIT/ML VIAL 5000 UNIT SC ×3 (08:36→21:48)
[2023-05-03] MEDS: Metoprolol Tartrate 50 MG Tablet PO ×2 (08:37→21:46)
[2023-05-03] MEDS: guaiFENesin 1,200 MG Tablet 1200 MG PO ×2 (08:37→21:47)
[2023-05-03] MEDS: Furosemide 100 MG/10 ML Vial 80 MG IV (11:18)
[2023-05-03] MEDS: 0.9% Saline Lock 10 ML Syringe IV (11:19)
--- NOTE | 2023-05-03 11:47 | PCM.PN.HOSP ---
Reason for Visit Reason for Visit: Diagnoses Hypovolemia (04/24/23) Other hypotension (04/24/23) Pleural effusion, not elsewhere classified (04/24/23) Acute respiratory failure with hypoxia (04/24/23) Acute kidney failure, unspecified (04/24/23) Tachycardia, unspecified (04/24/23) Other specified abnormal findings of blood chemistry (04/24/23) Other nonspecific abnormal finding of lung field (04/24/23) Subjective Subjective Patient was found to be significantly hypoxic the day prior after attempt to discharge patient home discharge was placed on hold chest x-ray obtained did show increasing left-sided pleural effusion. Patient did receive Lasix repeat x-ray ordered for this a.m. Patient will be assessed for possible home oxygen need Objective Data Objective Data Vital Signs: Vital Signs Temp Pulse Resp BP Pulse Ox O2 Del Method O2 Flow Rate 97.9 F 113 H 18 104/76 84 Nasal Cannula 0 05/03/23 08:25 05/03/23 08:37 05/03/23 08:25 05/03/23 08:37 05/03/23 11:14 05/03/23 10:25 05/03/23 11:14 FiO2 35 04/27/23 07:06 Oxygen Flow Rate (L/min) [3] 3 Oxygen Flow Rate (L/min) [2] 3 Oxygen Flow Rate (L/min) [1 ( 3 Initial Baseline)] Oxygen Flow Rate (L/min) [ 8 AMBULATING with Oxygen #3] Oxygen Flow Rate (L/min) [ 6 AMBULATING with Oxygen #2] Oxygen Flow Rate (L/min) [ 4 AMBULATING with Oxygen #1] Oxygen Flow Rate (L/min) [At 6 REST with Oxygen] Oxygen Flow Rate (L/min) [At 0 REST on Room Air] Oxygen Flow Rate (L/min) 6 Oxygen Delivery Method [3] Nasal Cannula Oxygen Delivery Method [2] Nasal Cannula Oxygen Delivery Method [1 ( Nasal Cannula Initial Baseline)] Oxygen Delivery Method Nasal Cannula Weight: 73.3 kg Body Mass Index (BMI) 23.1 Intake & Output: Intake and Output for Last 24 Hours 05/01/23 05/02/23 05/03/23 23:59 23:59 23:59 Intake Total 720 / 870 380 / 380 Output Total 1150 / 1150 700 / 700 Balance -430 / -280 -320 / -320 Lab / Micro Data 05/03/23 06:30 05/03/23 06:30 Labs: Laboratory Results - last 24 hr 05/03/23 06:30: WBC 7.3, RBC 4.78, Hgb 11.8 L, Hct 41.1, MCV 86.0, MCH 24.7 L, MCHC 28.7 L, RDW Std Deviation 54.3 H, RDW Coeff of Jeffrey 17.4 H, Plt Count 263, MPV 9.0, Immature Gran % (Auto) 0.700, Neut % (Auto) 71.7 H, Lymph % (Auto) 7.7 L, [place] % (Auto) 15.2 H, Eos % (Auto) 4.0, Baso % (Auto) 0.7, Absolute Neuts (auto) 5.2, Absolute Lymphs (auto) 0.56 L, Nucleated RBC % 0, Anisocytosis 1+, Sodium 139, Potassium 4.2, Chloride 102, Carbon Dioxide 32.0, Anion Gap 5, BUN 31 H, Creatinine 1.15, Estim Creat Clear Calc 66.12, Est GFR (MDRD) Af Amer 82, Est GFR (MDRD) Non-Af 68, BUN/Creatinine Ratio 27.0 H, Glucose 99, Calcium 9.2 Micro: Microbiology 04/26/23 08:27 Fluid - Thoracentesis Fluid Gram Stain - Final 04/26/23 08:27 Fluid - Thoracentesis Fluid Body Fluid Culture - Final Culture exhibits no growth. 04/26/23 08:27 Fluid - Thoracentesis Fluid Anaerobic Culture - Final No growth in 5 days. 04/24/23 13:17 Blood Culture (Wb) - Anticubital Right Blood Culture - Final No growth in 5 days. 04/24/23 13:04 Blood Culture (Wb) - Anticubital Right Blood Culture - Final No growth in 5 days. 04/27/23 15:30 Urine, Random Legionella Antigen - Final 04/27/23 15:30 Urine, Random Streptococcus pneumoniae Antigen (M - Final 04/24/23 20:40 Mucosa - Nose Respiratory Panel (PCR) - Final 04/24/23 20:40 Nasal Secretion SARS-CoV-2 Antigen (Rapid) - Final Radiography Diagnostic Testing: Radiology Impression Chest X-Ray 05/02/23 13:07 IMPRESSION: Probable left upper lobe neoplasm with hilar adenopathy and left pleural effusion which has increased in size since prior study. Electronically Signed: Sudhir Burden MD at 22:43 EDT , Physical Exam Narrative GENERAL: cooperative HEENT: Atraumatic; normocephalic EYES; Anicteric, Normal Conjunctiva NECK; supple, normal thyroid, RESPIRATORY: Diminished to auscultation CARDIOVASCULAR: Regular S1 S2, GI: soft, normoactive bowel sounds, : No Renal angle tenderness; EXTREMITIES: No edema, no clubbing, MUSCULOSKELETAL: no muscle wasting NEURO: Awake; no lateralizing signs. SKIN: No Rash PSYCH; Flat affect Assessment & Plan Assessment/Plan (1) Mass of left lung: PLAN: Plan Patient is a 67-year-old gentleman admitted with shortness of breath and lightheadedness. CTA of the chest obtained on admission did show moderate-sized left pleural effusion with left basilar atelectasis. 2.9 cm x 3.1 cm mass in the left upper lobe. Left hilar lymphadenopathy. Mild enlargement of mediastinal lymphadenopathy admitted to a monitored bed for subsequent management 1. Lung mass ?CTA of the chest obtained on admission did show moderate-sized left pleural effusion with left basilar atelectasis. 2.9 cm x 3.1 cm mass in the left upper lobe. Left hilar lymphadenopathy. Mild enlargement of mediastinal lymphadenopathy admitted to a monitored bed for subsequent management. Patient was also found to have concomitant pleural effusion for which patient underwent ultrasound-guided thoracocentesis. Cytology did show metastatic non-small cell carcinoma. Plan is for patient to follow-up with pulmonary medicine and oncology as outpatient -05/02/2023; Patient seen, plan is for patient to be assessed for possible discharge. Case was discussed with Dr. Crocker with oncology patient will follow-up with him as outpatient ? 05/03/2023; Patient was found to be significantly hypoxic the day prior after attempt to discharge patient home discharge was placed on hold chest x-ray obtained did show increasing left-sided pleural effusion. Patient did receive Lasix repeat x-ray ordered for this a.m. Patient will be assessed for possible home oxygen need 2. Left-sided pleural effusion ? Patient underwent ultrasound guided thoracocentesis by interventional radiology. Approximately 2150 mL of bloody fluid was drained. Fluid analysis including cytology sent. Cytology did show metastatic non-small cell carcinoma 3. Acute hypoxia ? Secondary to #1 and #2 patient remains on supplemental oxygen ? 05/02/2023. Patient was assessed for home oxygen which she did qualify he will need portability since he is active with at home as well as in the community 4. Chronic kidney disease stage III ? Patient kidney function has remained stable through out his hospital stay at 1.5 acute kidney injury ruled out 5. Dyslipidemia -Patient is on statin therapy, continued at home dose 6. Hypertension - Blood pressure controlled, home medications continued with dose adjustment as needed 7. DVT prophylaxis ? SC heparin Time spent in the patient's overall evaluation,decision-making process, review of diagnostic data, adjustment of management, discussion with other providers, nursing nursing and ancillary staff involved in patient's care documentation, 35 Minutes Charges/Coding Visit Charges Inpatient E&M: 03133 Subs Hosp L2
[2023-05-03] MEDS: Acetaminophen 325 MG Tablet 650 MG PO (13:02)
[2023-05-04] VITALS (12 sets, daily range): BP systolic 71–121; BP diastolic 44–81; PULSE 93–116; RESP 18–20; TEMP 36.4–37.4; O2SAT 92–98
[2023-05-04] MEDS: Heparin Injection (Vial) 5,000 UNIT/ML VIAL 5000 UNIT SC ×3 (06:40→21:59)
[2023-05-04] MEDS: Ipratropium/Albuterol Sulfate 3 ML AMPUL.NEB INHALATION ×2 (07:03→19:13)
[2023-05-04 07:34] LABS: Absolute Lymphocyte Count 0.54 X10^3/uL (0.83-4.51); Basophil# 0.05 X10^3/uL; Basophil% 0.6 % (0-1); Eosinophil# 0.26 X10^3/uL; Eosinophils% 3.2 % (0-5); Hematocrit 41.7 % (40-54); Lymphocyte # 0.54 X10^3/ul (0.83-4.51); Lymphocyte % 6.6 % (19-41); Mean Corp Hgb Conc 28.8 g/dL (32-36); Mean Corpuscular Hgb 24.7 pg (27.0-32.0); Mean Corpuscular Volume 85.8 fL (80-94); Mean Platelet Vol. 9.5 fl (6.2-12.0); Monocyte# 1.29 X10^3/uL; Monocyte% 15.8 % (0-10); NRBC Flagged by Analyzer 0 % (0-5); Neutrophil # 5.98 X10^3/uL (2.7-7.7); Neutrophil % 73.2 % (47-70); POSITIVE DIFFERENTIAL YES; Platelet Count 307 K/mm3 (150-450); RBC Distribution Width CV 17.5 % (11.6-14.6); RBC Distribution Width SD 54.4 fl (35.1-43.9); Red Blood Count 4.86 M/mm3 (4.6-6.2); White Blood Count 8.2 K/mm3 (4.4-11.0)
[2023-05-04 07:41] LABS: Differential Indicated SCAN CRITERIA MET
[2023-05-04 08:04] LABS: Anion Gap 5 (5-15); BUN 37 mg/dL (7-18); Chloride 98 mmol/L (98-107); Creatinine, Serum 1.32 mg/dL (0.70-1.30); EST Glomerular Filtration Rate 58 mL/min (>60); Est Glom Filt Rate - Afr Amer 70 mL/min (>60); Estimated Creatinine Clearance 57.61 ml/min; Glucose 99 mg/dL (74-106); Potassium 4.1 mmol/L (3.5-5.1); Sodium Level 137 mmol/L (136-145)
--- NOTE | 2023-05-04 08:12 | US_ITS ---
PROCEDURE: ULTRASOUND GUIDED THORACENTESIS. DATE: May 04, 2023.. INDICATION: Male, 67 years old. Left pleural effusion. PHYSICIAN: Enoc Amos M.D. PROCEDURE: The risks, benefits, and alternatives to the procedure were explained to the patient. The specific risks of bleeding, infection, and pneumothorax requiring chest tube insertion were discussed and accepted. Written informed consent was obtained. Ultrasonographic evaluation of the left lower pleural space was carried out. An adequate pocket was identified. The patient was placed in the sitting, upright position. The overlying skin was prepped and draped in sterile fashion. 1% lidocaine was administered subcutaneously for local anesthesia. Under ultrasound guidance, a 5 [place] thoracentesis needle/catheter system was advanced into the left posterior lower pleural fluid collection. Approximately 1480 mL of blood tinged fluid was drained. The catheter was removed, and a sterile dressing was applied. The patient tolerated the procedure well. A chest x-ray was ordered. US/Thoracentesis W US IMPRESSION: Ultrasound-guided left thoracentesis. Electronically Signed: Enoc Amos MD at 13:33 EDT ,
--- NOTE | 2023-05-04 08:13 | PCM.PN.HOSP ---
Reason for Visit Reason for Visit: Diagnoses Hypovolemia (04/24/23) Other hypotension (04/24/23) Pleural effusion, not elsewhere classified (04/24/23) Acute respiratory failure with hypoxia (04/24/23) Acute kidney failure, unspecified (04/24/23) Tachycardia, unspecified (04/24/23) Other specified abnormal findings of blood chemistry (04/24/23) Other nonspecific abnormal finding of lung field (04/24/23) Subjective Subjective Repeat chest x-ray demonstrated increasing left-sided pleural effusion. Patient desaturated with ambulation requiring up to 10 L of oxygen. Requisition placed for patient to undergo therapeutic ultrasound guided thoracocentesis Objective Data Objective Data Vital Signs: Vital Signs Temp Pulse Resp BP Pulse Ox O2 Del Method O2 Flow Rate 98.0 F 98 18 121/81 H 96 Nasal Cannula 5 05/04/23 02:00 05/04/23 04:00 05/04/23 02:00 05/04/23 02:00 05/04/23 02:00 05/04/23 04:00 05/04/23 04:00 FiO2 35 04/27/23 07:06 Oxygen Flow Rate (L/min) [3] 3 Oxygen Flow Rate (L/min) [2] 3 Oxygen Flow Rate (L/min) [1 ( 3 Initial Baseline)] Oxygen Flow Rate (L/min) [ 8 AMBULATING with Oxygen #3] Oxygen Flow Rate (L/min) [ 6 AMBULATING with Oxygen #2] Oxygen Flow Rate (L/min) [ 4 AMBULATING with Oxygen #1] Oxygen Flow Rate (L/min) [At 6 REST with Oxygen] Oxygen Flow Rate (L/min) [At 0 REST on Room Air] Oxygen Flow Rate (L/min) 5 Oxygen Delivery Method [3] Nasal Cannula Oxygen Delivery Method [2] Nasal Cannula Oxygen Delivery Method [1 ( Nasal Cannula Initial Baseline)] Oxygen Delivery Method Nasal Cannula Weight: 73.3 kg Body Mass Index (BMI) 23.1 Intake & Output: Intake and Output for Last 24 Hours 05/02/23 05/03/23 05/04/23 23:59 23:59 23:59 Intake Total 720 / 870 620 / 770 150 / 150 Output Total 1150 / 1150 1800 / 2100 600 / 600 Balance -430 / -280 -1180 / -1330 -450 / -450 Lab / Micro Data 05/04/23 06:25 05/04/23 06:25 Labs: Laboratory Results - last 24 hr 05/04/23 06:25: WBC 8.2, RBC 4.86, Hgb 12.0 L, Hct 41.7, MCV 85.8, MCH 24.7 L, MCHC 28.8 L, RDW Std Deviation 54.4 H, RDW Coeff of Jeffrey 17.5 H, Plt Count 307, MPV 9.5, Immature Gran % (Auto) 0.600, Neut % (Auto) 73.2 H, Lymph % (Auto) 6.6 L, [place] % (Auto) 15.8 H, Eos % (Auto) 3.2, Baso % (Auto) 0.6, Absolute Neuts (auto) 6.0, Absolute Lymphs (auto) 0.54 L, Nucleated RBC % 0, Differential Comment COMMENT, Sodium 137, Potassium 4.1, Chloride 98, Carbon Dioxide 34.0 H, Anion Gap 5, BUN 37 H, Creatinine 1.32 H, Estim Creat Clear Calc 57.61, Est GFR (MDRD) Af Amer 70, Est GFR (MDRD) Non-Af 58 L, BUN/Creatinine Ratio 28.0 H, Glucose 99, Calcium 9.0 Micro: Microbiology 04/26/23 08:27 Fluid - Thoracentesis Fluid Gram Stain - Final 04/26/23 08:27 Fluid - Thoracentesis Fluid Body Fluid Culture - Final Culture exhibits no growth. 04/26/23 08:27 Fluid - Thoracentesis Fluid Anaerobic Culture - Final No growth in 5 days. 04/24/23 13:17 Blood Culture (Wb) - Anticubital Right Blood Culture - Final No growth in 5 days. 04/24/23 13:04 Blood Culture (Wb) - Anticubital Right Blood Culture - Final No growth in 5 days. 04/27/23 15:30 Urine, Random Legionella Antigen - Final 04/27/23 15:30 Urine, Random Streptococcus pneumoniae Antigen (M - Final 04/24/23 20:40 Mucosa - Nose Respiratory Panel (PCR) - Final 04/24/23 20:40 Nasal Secretion SARS-CoV-2 Antigen (Rapid) - Final Physical Exam Narrative GENERAL: cooperative HEENT: Atraumatic; normocephalic EYES; Anicteric, Normal Conjunctiva NECK; supple, normal thyroid, RESPIRATORY: Diminished to auscultation CARDIOVASCULAR: Regular S1 S2, GI: soft, normoactive bowel sounds, : No Renal angle tenderness; EXTREMITIES: No edema, no clubbing, MUSCULOSKELETAL: no muscle wasting NEURO: Awake; no lateralizing signs. SKIN: No Rash PSYCH; Flat affect Assessment & Plan Assessment/Plan (1) Mass of left lung: PLAN: Plan Patient is a 67-year-old gentleman admitted with shortness of breath and lightheadedness. CTA of the chest obtained on admission did show moderate-sized left pleural effusion with left basilar atelectasis. 2.9 cm x 3.1 cm mass in the left upper lobe. Left hilar lymphadenopathy. Mild enlargement of mediastinal lymphadenopathy admitted to a monitored bed for subsequent management 1. Lung mass ?CTA of the chest obtained on admission did show moderate-sized left pleural effusion with left basilar atelectasis. 2.9 cm x 3.1 cm mass in the left upper lobe. Left hilar lymphadenopathy. Mild enlargement of mediastinal lymphadenopathy admitted to a monitored bed for subsequent management. Patient was also found to have concomitant pleural effusion for which patient underwent ultrasound-guided thoracocentesis. Cytology did show metastatic non-small cell carcinoma. Plan is for patient to follow-up with pulmonary medicine and oncology as outpatient -05/02/2023; Patient seen, plan is for patient to be assessed for possible discharge. Case was discussed with Dr. Crocker with oncology patient will follow-up with him as outpatient ? 05/03/2023; Patient was found to be significantly hypoxic the day prior after attempt to discharge patient home discharge was placed on hold chest x-ray obtained did show increasing left-sided pleural effusion. Patient did receive Lasix repeat x-ray ordered for this a.m. Patient will be assessed for possible home oxygen need 2. Left-sided pleural effusion ? Patient underwent ultrasound guided thoracocentesis by interventional radiology. Approximately 2150 mL of bloody fluid was drained. Fluid analysis including cytology sent. Cytology did show metastatic non-small cell carcinoma ? 05/04/2023; Repeat chest x-ray demonstrated increasing left-sided pleural effusion. Patient desaturated with ambulation requiring up to 10 L of oxygen. Requisition placed for patient to undergo therapeutic ultrasound guided thoracocentesis 3. Acute hypoxia ? Secondary to #1 and #2 patient remains on supplemental oxygen ? 05/02/2023. Patient was assessed for home oxygen which she did qualify he will need portability since he is active with at home as well as in the community 4. Chronic kidney disease stage III ? Patient kidney function has remained stable through out his hospital stay at 1.5 acute kidney injury ruled out 5. Dyslipidemia -Patient is on statin therapy, continued at home dose 6. Hypertension - Blood pressure controlled, home medications continued with dose adjustment as needed 7. DVT prophylaxis ? SC heparin Time spent in the patient's overall evaluation,decision-making process, review of diagnostic data, adjustment of management, discussion with other providers, nursing nursing and ancillary staff involved in patient's care documentation, 50 Minutes Charges/Coding Visit Charges Inpatient E&M: 57283 Init Hosp L3
[2023-05-04] MEDS: guaiFENesin 1,200 MG Tablet 1200 MG PO ×2 (09:16→21:59)
[2023-05-04] MEDS: Metoprolol Tartrate 50 MG Tablet PO ×2 (09:16→21:59)
[2023-05-04] MEDS: Lidocaine 2% (20 ml mdv) 20 ML Vial INFILT (12:04)
--- NOTE | 2023-05-04 12:33 | RAD_ITS ---
STUDY: X-RAY CHEST REASON FOR EXAM: Male, 67 years old. Post thoracentesis TECHNIQUE: AP inspiration and expiration views. COMPARISON: None. FINDINGS: The patient is status post left thoracentesis. There is no evidence of pneumothorax. Mild residual pleural-parenchymal changes at the left lung base. Stable left upper lobe nodule. RAD/Chest Insp/Exp 2 View IMPRESSION: No evidence of pneumothorax following the left thoracentesis. Residual pleural parenchymal changes at the left lung base. Electronically Signed: Enoc Amos MD at 13:29 EDT ,
[2023-05-04] MEDS: Acetaminophen 325 MG Tablet 650 MG PO (16:34)
[2023-05-05] VITALS (8 sets, daily range): BP systolic 88–101; BP diastolic 64–70; PULSE 96–117; RESP 18–20; TEMP 36.6–36.9; O2SAT 86–95
[2023-05-05] MEDS: Heparin Injection (Vial) 5,000 UNIT/ML VIAL 5000 UNIT SC (06:47)
[2023-05-05] MEDS: Ipratropium/Albuterol Sulfate 3 ML AMPUL.NEB INHALATION ×2 (07:07→12:57)
[2023-05-05] MEDS: Metoprolol Tartrate 50 MG Tablet PO (09:59)
[2023-05-05] MEDS: guaiFENesin 1,200 MG Tablet 1200 MG PO (09:59)
--- NOTE | 2023-05-05 12:01 | PHA.DC.MR.R ---
Pharmacy [place] Med Reconciliation Pharmacy Service has performed discharge medication reconciliation for this patient. The patient's discharge medication list was reviewed for discrepancies and discrepancies were resolved. Medications at Discharge Home Medications metoprolol tartrate 25 mg tablet 25 mg PO BID for blood pressure 03/26/18 rosuvastatin 40 mg tablet 40 mg PO DAILY for cholesterol 03/27/23 guaifenesin 1,200 mg tablet, extended release 12 hr (Mucinex) 1,200 mg PO BID COUGH 04/24/23 omega 8-acv-snr-fish oil 300 mg-1,000 mg capsule (Fish Oil) 1 cap PO BID supplement 04/24/23
--- NOTE | 2023-05-05 12:50 | CASEMGMT ---
RN ASIF updated that patient is discharging today and needs home oxygen at discharge. [facility] and arranged for tank to be delivered to patient's room. LADAN GOLD in to patient's room to update regarding home oxygen setup. Patient denies further needs at discharge. Patient had no further questions or concerns.
== END 2023-05-05 16:29 | disposition home or self-care (01) | DRG 180 ==
LOC: ED 14:45 → MS3 15:55 → PCU 04-27 10:26
PROVIDERS: Hospitalist; Admitting Provider Internal Medicine; Emergency Provider Emergency Medicine; PCP Family Medicine; Visit Provider Internal Medicine
DX: C78.02 Secondary malignant neoplasm of left lung (principal); J96.01 Acute respiratory failure with hypoxia; J18.9 Pneumonia, unspecified organism; J91.0 Malignant pleural effusion; L03.113 Cellulitis of right upper limb; E86.0 Dehydration; I95.89 Other hypotension; E86.1 Hypovolemia; N18.31 Chronic kidney disease, stage 3a; J44.9 Chronic obstructive pulmonary disease, unspecified; E03.9 Hypothyroidism, unspecified; I12.9 Hypertensive chronic kidney disease with stage 1 through stage 4 chronic kidney disease, or unspecified chronic kidney disease; E78.5 Hyperlipidemia, unspecified; F17.210 Nicotine dependence, cigarettes, uncomplicated; R00.0 Tachycardia, unspecified; T50.2X5A Adverse effect of carbonic-anhydrase inhibitors, benzothiadiazides and other diuretics, initial encounter; T46.4X5A Adverse effect of angiotensin-converting-enzyme inhibitors, initial encounter; Z20.822 Contact with and (suspected) exposure to COVID-19; R59.1 Generalized enlarged lymph nodes; Z90.5 Acquired absence of kidney; Z85.528 Personal history of other malignant neoplasm of kidney
CPT/HCPCS: 32555; 36415; 71045; 71046; 71275; 80048; 80202; 82150; 82533; 82945; 83605; 83615; 83735; 83986; 84100; 84145; 84156; 84157; 84484; 85025; 85379; 85610; 85652; 85730; 86140; 87040; 87070; 87075; 87205; 87449; 87633; 87811; 88108; 88305; 88313; 88341; 88342; 89050; 93005; 93306; 93970; 93971; 94002; 94640; 94668; 94762; 97802; 99285; 99406; J7030; J7040; J7050; Q9967; A4216; J0696; J1940

== ENCOUNTER 2023-05-25 14:06 | Inpatient (IN) | payer OTHER, MEDICARE, SELFPAY ==
[2023-05-25] VITALS (11 sets, daily range): BP systolic 96–157; BP diastolic 69–93; PULSE 112–126; RESP 18–22; TEMP 36.8–37.8; O2SAT 88–96; BMI 22.4
[2023-05-25 14:51] LABS: International Normalized Ratio 1.2; Prothrombin Time (Protime)PT. 14.8 SECONDS (11.7-14.9)
--- NOTE | 2023-05-25 14:53 | HP.PCM.HOS_ITS ---
HPI - General General Date of Admission: 05/25/23 HPI Narrative IRVING ULLOA, is a 67 M who presents to the hospital with increasing shortness of breath. He went to an outside hospital and had a chest x-ray that demonstrated and almost complete whiteout of his left lung secondary to m alignant pleural effusion that he is aware of. It is a non-small cell lung cancer that he has not followed up with oncology for because he does not want treatment. We discussed the benefits of following up to have further discussion on prognosis and and different therapeutic interventions, but he is still resistant to treatment. At the outside hospital he was also found to have a white count of 18,000 but is unclear if his vital sign derangements are due to sepsis or the fact that he has significant pleural effusion that needs to be drained. He states that he started feeling short of breath yesterday afternoon and it has steadily gotten worse. [facility] Medical History (Updated 05/13/23 @ 00:12 by Background Lolly) Chest pain Chronic pain CKD (chronic kidney disease) COPD (chronic obstructive pulmonary disease) BUTCHER (dyspnea on exertion) Hypertension Hypothyroidism Irregular heart beat Kidney disease Mass of upper lobe of left lung Smoker Substance abuse Tobacco abuse Home Medications metoprolol tartrate 25 mg tablet 25 mg PO BID for blood pressure 03/26/18 [History Last Taken 05/24/23] rosuvastatin 40 mg tablet 40 mg PO DAILY for cholesterol 03/27/23 [History Last Taken 05/25/23] omega 5-hvh-obf-fish oil 300 mg-1,000 mg capsule (Fish Oil) 1 cap PO BID supplement 04/24/23 [History Last Taken 05/25/23] Allergy/AdvReac Type Severity Reaction Status Date / Time No Known Allergies Allergy Verified 04/24/23 15:07 Family History (Updated 04/03/23 @ 10:54 by Tonya Crawford) Brother Cancer Kidney disease Mother Heart disease Grandfather Cancer LUNG Surgical History (Updated 05/13/23 @ 00:12 by Background Daemon) History of left nephrectomy Social History Smoking Status: Current every day smoker tobacco type: cigarettes ROS Constitutional Constitutional: Reports fever(s); Denies chills, fatigue or malaise Eyes Eyes: Denies blurry vision ENT HEENT: Denies headache(s) or nasal discharge Cardiovascular Cardiovascular: Denies chest pain, dyspnea on exertion or syncope Respiratory/Chest Respiratory/Chest: Reports cough, shortness of breath at rest and shortness of breath with exertion Gastrointestinal Gastrointestinal: Denies constipation, diarrhea, nausea or vomiting Genitourinary Genitourinary: Denies dysuria Neurologic Neurologic: Denies focal weakness, numbness or tremor(s) Psychiatric Psychiatric: Denies anxiety or depression Vital Signs Vital Signs Vital Signs: 05/25/23 12:50 05/25/23 13:03 05/25/23 13:12 Temperature 98.8 F 99.8 F H Temperature Source Temporal Temporal Pulse Rate 116 H 112 H 115 H Respiratory Rate 20 H 18 Respiratory Effort Normal Non-Labored Respiratory Depth Normal Respiratory Pattern Normal Blood Pressure 96/72 111/69 Blood Pressure Mean 80 83 Blood Pressure Source Monitor Blood Pressure Position Sitting Blood Pressure Location Left Arm Pulse Ox 90 91 93 Oxygen Delivery Method High Flow High Flow High Flow Oxygen Flow Rate (L/min) 9 9 05/25/23 14:24 Temperature 100.0 F H Temperature Source Temporal Pulse Rate 120 H Respiratory Rate 20 H Respiratory Effort Respiratory Depth Respiratory Pattern Blood Pressure 106/74 Blood Pressure Mean 84 Blood Pressure Source Monitor Blood Pressure Position Semi-Fowlers Blood Pressure Location Left Arm Pulse Ox 94 Oxygen Delivery Method High Flow Oxygen Flow Rate (L/min) 12 Weight Weight: 160 lb 8 oz Body Mass Index (BMI) 22.4 Physical Exam Narrative General: Alert, Oriented x3, Cooperative, mild to moderate respiratory distress HEENT: Atraumatic, PERRLA, EOMI, Normocephalic Oral: Moist Mucosa Neck: Supple, No JVD Lungs: Diminished on the left, Normal air movement, No rhonchi, No wheeze, No rales, tachypneic, 3 word sentences Cardiovascular: Tachycardic, Regular Rhythm, Normal S1, Normal S2, No murmurs Abdomen: Soft, Non Tender, Non-Distended, No Hepato-splenomegaly Extremities: No edema, Capillary Refill Less than 3 Seconds Skin: No rashes, No breakdown Musculoskeletal: No Tenderness to Palpation of Joints or Extremities Neurological: Cranial nerves II-XII grossly intact, Motor Exam 5/5 strength throughout, Sensory exam intact to light touch and pain Psych/Mental Status: Normal Affect, Appropriate Results Lab / Micro Data Labs: Laboratory Results - last 24 hr 05/25/23 14:33: PT 14.8, INR 1.2 Assessment & Plan Assessment/Plan (1) Acute respiratory failure with hypoxia: (2) Pleural effusion: PLAN: Plan 1. Acute respiratory failure with hypoxia secondary to a malignant pleural effusion from non-small cell lung cancer ? He is aware that his cancer is stage IV ? He still does not want treatment ? Had a 20-minute discussion on advance care planning and recommended if he does not want treatment given that it this is his third or fourth visit to the hospital for thoracentesis that he might benefit from a permanent catheter ? On his previous discharge he was on 6 L nasal cannula and now he is on 10-12 high flow nasal cannula ? We will hold his home blood pressure medications and start him on IV cefepime ? We will order a thoracentesis however since we know the diagnosis no studies need to be done other than a culture ? Allow for regular diet if may need to start IV fluids if he has poor p.o. intake ? Renal function at the outside hospital 1.45, will recheck in the morning this is close to his baseline of around 1.3 2. HTN/HLD ? Blood pressures are little bit on the low side, given his pleural effusion we will hold his metoprolol ? Can resume Crestor DVT: SCDs 75 minutes was spent on direct patient care, including documentation as well as chart review and collaboration with colleagues Charges/Coding Visit Charges Inpatient E&M: 22908 Init Hosp L3 Procedures Hospitalists Procedures: 02388 Advncd Care Plan 30 Min
--- NOTE | 2023-05-25 19:50 | RAD_ITS ---
INDICATION: eval for malignant effusion with increased SOB EXAMINATION/TECHNIQUE: X-RAY - XR Chest 2 Views COMPARISON: 05/04/2023. FINDINGS: LINES/DEVICES: None. LUNGS: Large left pleural effusion, increased in size as compared to the prior exam. Again seen is a left upper lobe mass. Increased density in the partially aerated left upper lung may be secondary to a layering pleural effusion versus atelectasis versus infiltrate. Right lung interstitial opacities. No evidence of a pneumothorax. MEDIASTINUM AND CARDIOVASCULAR STRUCTURES: Cardiac silhouette well visualized. Mediastinum is unremarkable. BONES AND SOFT TISSUES: No acute abnormality. RAD/Chest PA and Lateral IMPRESSION: 1. Large left pleural effusion, increased in size as compared to 05/04/2023. 2. Increased density in the left upper lung bases secondary to a layering pleural effusion versus atelectasis versus infiltrate. 3. Right lung interstitial opacities which may represent mild edema. Electronically Signed: Sudhir Schmidt DO at 20:09 EDT ,
[2023-05-25 20:46] LABS: Anion Gap 4 (5-15); BUN 24 mg/dL (7-18); BUN/Creat Ratio 17.6 RATIO (10-20); Calcium,Total 9.3 mg/dL (8.5-10.1); Chloride 95 mmol/L (98-107); Creatinine, Serum 1.36 mg/dL (0.70-1.30); EST Glomerular Filtration Rate 56 mL/min (>60); Est Glom Filt Rate - Afr Amer 68 mL/min (>60); Estimated Creatinine Clearance 55.76 ml/min; Glucose 130 mg/dL (74-106); Sodium Level 135 mmol/L (136-145)
[2023-05-25] MEDS: Cefepime HCl 2 GM in 0.9% Normal Saline (100mL MB+) 100 ML IV (21:39)
[2023-05-25] MEDS: oxyCODONE 5 MG Tablet PO (21:39)
[2023-05-25 22:12] LABS: M R Staph aureus DNA By PCR Negative (Negative); Probe Check PASS; Specimen Processing Control PASS
[2023-05-26] VITALS (24 sets, daily range): BP systolic 92–131; BP diastolic 45–85; PULSE 88–122; RESP 18–26; TEMP 36.6–37; O2SAT 89–98
[2023-05-26] MEDS: Acetaminophen 325 MG Tablet 650 MG PO (01:33)
[2023-05-26] MEDS: Cefepime HCl 2 GM in 0.9% Normal Saline (100mL MB+) 100 ML IV (05:22)
[2023-05-26 06:14] LABS: Absolute Lymphocyte Count 0.28 X10^3/uL (0.83-4.51); Absolute Neutrophil Count 15.7 X10^3/uL (2.0-7.7); Basophil# 0.03 X10^3/uL; Basophil% 0.2 % (0-1); Eosinophil# 0.01 X10^3/uL; Eosinophils% 0.1 % (0-5); Hematocrit 42.7 % (40-54); Hemoglobin 11.6 g/dL (13.0-16.5); Lymphocyte # 0.28 X10^3/ul (0.83-4.51); Lymphocyte % 1.6 % (19-41); Mean Corp Hgb Conc 27.2 g/dL (32-36); Mean Corpuscular Volume 88.2 fL (80-94); Mean Platelet Vol. 8.4 fl (6.2-12.0); Monocyte% 6.9 % (0-10); NRBC Flagged by Analyzer 0 % (0-5); Neutrophil % 90.8 % (47-70); POSITIVE DIFFERENTIAL YES; Platelet Count 228 K/mm3 (150-450); RBC Distribution Width CV 18.2 % (11.6-14.6); RBC Distribution Width SD 58.2 fl (35.1-43.9); Red Blood Count 4.84 M/mm3 (4.6-6.2); White Blood Count 17.3 K/mm3 (4.4-11.0)
[2023-05-26 06:41] LABS: Anion Gap 3 (5-15); BUN 25 mg/dL (7-18); Calcium,Total 8.9 mg/dL (8.5-10.1); Chloride 95 mmol/L (98-107); Creatinine, Serum 1.39 mg/dL (0.70-1.30); EST Glomerular Filtration Rate 54 mL/min (>60); Est Glom Filt Rate - Afr Amer 66 mL/min (>60); Estimated Creatinine Clearance 54.56 ml/min; Glucose 111 mg/dL (74-106); Potassium 5.3 mmol/L (3.5-5.1); Sodium Level 133 mmol/L (136-145)
[2023-05-26 07:05] LABS: Differential Indicated SCAN CRITERIA MET
[2023-05-26 07:07] LABS: Differential Comment SCANNED
--- NOTE | 2023-05-26 08:00 | US_ITS ---
PROCEDURE: ULTRASOUND GUIDED THORACENTESIS. DATE: May 26, 2023.. INDICATION: Male, 67 years old. Left pleural effusion PHYSICIAN: Enoc Amos M.D. PROCEDURE: The risks, benefits, and alternatives to the procedure were explained to the patient. The specific risks of bleeding, infection, and pneumothorax requiring chest tube insertion were discussed and accepted. Written informed consent was obtained. Ultrasonographic evaluation of the left lower pleural space was carried out. An adequate pocket was identified. The patient was placed in the sitting, upright position. The overlying skin was prepped and draped in sterile fashion. 1% lidocaine was administered subcutaneously for local anesthesia. Under ultrasound guidance, a 5 [place] thoracentesis needle/catheter system was advanced into the left posterior lower pleural fluid collection. Approximately 3050 mL of dark-colored fluid was drained. The catheter was removed, and a sterile dressing was applied. The patient tolerated the procedure well. A chest x-ray was ordered. US/Thoracentesis W US IMPRESSION: Ultrasound-guided left thoracentesis. Electronically Signed: Enoc Amos MD at 11:34 EDT ,
--- NOTE | 2023-05-26 08:01 | PCM.PN.HOSP ---
Reason for Visit Reason for Visit: Diagnoses Pleural effusion, not elsewhere classified (05/25/23) Acute respiratory failure with hypoxia (05/25/23) Subjective Subjective Seen status post thoracentesis and patient feeling much better and much less dyspneic Objective Data Objective Data Vital Signs: Vital Signs Temp Pulse Resp BP Pulse Ox O2 Del Method O2 Flow Rate 98.2 F 114 H 20 H 125/85 H 94 High Flow 10 05/26/23 06:00 05/26/23 06:00 05/26/23 06:00 05/26/23 06:00 05/26/23 06:00 05/26/23 06:00 05/26/23 06:00 Oxygen Flow Rate (L/min) 10 Oxygen Delivery Method High Flow Weight: 72.802 kg Body Mass Index (BMI) 22.4 Intake & Output: Intake and Output for Last 24 Hours 05/24/23 05/25/23 05/26/23 23:59 23:59 23:59 Intake Total 475 / 475 100 / 100 Output Total 480 / 480 350 / 350 Balance -5 / -5 -250 / -250 Lab / Micro Data 05/26/23 06:05 05/26/23 06:05 Labs: Laboratory Results - last 24 hr 05/25/23 14:33: PT 14.8, INR 1.2 05/25/23 20:00: MRSA (PCR) Negative 05/25/23 20:16: Sodium 135 L, Potassium 5.0, Chloride 95 L, Carbon Dioxide 36.0 H, Anion Gap 4 L, BUN 24 H, Creatinine 1.36 H, Estim Creat Clear Calc 55.76, Est GFR (MDRD) Af Amer 68, Est GFR (MDRD) Non-Af 56 L, BUN/Creatinine Ratio 17.6, Glucose 130 H, Calcium 9.3 05/26/23 06:05: WBC 17.3 H, RBC 4.84, Hgb 11.6 L, Hct 42.7, MCV 88.2, MCH 24.0 L, MCHC 27.2 L, RDW Std Deviation 58.2 H, RDW Coeff of Jeffrey 18.2 H, Plt Count 228, MPV 8.4, Immature Gran % (Auto) 0.400, Neut % (Auto) 90.8 H, Lymph % (Auto) 1.6 L, [place] % (Auto) 6.9, Eos % (Auto) 0.1, Baso % (Auto) 0.2, Absolute Neuts (auto) 15.7 H, Absolute Lymphs (auto) 0.28 L, Nucleated RBC % 0, Differential Comment SCANNED, Sodium 133 L, Potassium 5.3 H, Chloride 95 L, Carbon Dioxide 35.0 H, Anion Gap 3 L, BUN 25 H, Creatinine 1.39 H, Estim Creat Clear Calc 54.56, Est GFR (MDRD) Af Amer 66, Est GFR (MDRD) Non-Af 54 L, BUN/Creatinine Ratio 18.0, Glucose 111 H, Calcium 8.9 Radiography Diagnostic Testing: Radiology Impression Chest X-Ray 05/25/23 19:50 IMPRESSION: 1. Large left pleural effusion, increased in size as compared to 05/04/2023. 2. Increased density in the left upper lung bases secondary to a layering pleural effusion versus atelectasis versus infiltrate. 3. Right lung interstitial opacities which may represent mild edema. Electronically Signed: Sudhir Schmidt DO at 20:09 EDT , Physical Exam Narrative General: Alert, oriented, no apparent distress HEENT: Atraumatic, normocephalic Eyes: Anicteric, normal conjunctiva, extraocular movements grossly intact Neck: Supple Respiratory: Does not appear to be in respiratory distress, slightly dull at left base and coarse at right base Cardiovascular: Regular rate, slightly tachycardic GI: Soft, nontender, nondistended Extremities: No edema Musculoskeletal: Moving all extremities Neuro: No overt focal neurological deficits Skin: No rashes appreciated Psych: Cooperative Assessment & Plan Assessment/Plan (1) Acute respiratory failure with hypoxia: (2) Pleural effusion: PLAN: Plan #Acute respiratory failure with hypoxia secondary to a malignant pleural effusion from non-small cell lung cancer ? He is aware that his cancer is stage IV ? He still does not want treatment ? Had a 20-minute discussion on advance care planning and recommended if he does not want treatment given that it this is his third or fourth visit to the hospital for thoracentesis that he might benefit from a permanent catheter ? On his previous discharge he was on 6 L nasal cannula and now he is on 10-12 high flow nasal cannula ? We will hold his home blood pressure medications and start him on IV cefepime ? We will order a thoracentesis however since we know the diagnosis no studies need to be done other than a culture ? Allow for regular diet if may need to start IV fluids if he has poor p.o. intake ? Renal function at the outside hospital 1.45, will recheck in the morning this is close to his baseline of around 1.3 -05/26: This a.m. patient tachycardic with heart rate of 114 and on 10 L high flow nasal cannula satting at 94%, patient for thoracentesis, feeling much better after 3 L off with thoracentesis. He was started on antibiotics overnight due to concern for pneumonia however discussed with director of customer service and they did not feel this was pneumonia based and suspect this will get better now that patient's had thoracentesis. Ultimately may need evaluated for Pleurx catheter. Patient still unsure if he wants to pursue any kind of cancer evaluation or treatment, once stable for discharge will give information to follow-up with oncology as well as surgery for possible Pleurx catheter as he will need this versus serial thoracentesis moving forward #CKD stage IIIb -Seems to presently be close to baseline, continue to monitor volume status #HTN/HLD ? Blood pressures are little bit on the low side, given his pleural effusion we will hold his metoprolol ? Can resume Crestor -05/26: Continue to monitor pre and postthoracentesis. DVT: SCDs 40 minutes was spent on direct patient care, including documentation as well as chart review and collaboration with colleagues Charges/Coding Visit Charges Inpatient E&M: 89610 Subs Hosp L2
--- NOTE | 2023-05-26 08:32 | RAD_ITS ---
STUDY: X-RAY CHEST REASON FOR EXAM: Male, 67 years old. post thora TECHNIQUE: Single AP portable view of the chest. COMPARISON: May 25, 2023 FINDINGS: 1. Status post left thoracentesis. Status post evacuation of 80% of the previously seen large left pleural effusion with only a small volume remaining in the lower lobe. 2. No demonstrated pneumothorax 3. Mild patchy consolidation remains in the left lower lobe 4. Moderate patchy consolidation remains throughout the right lower lobe and to a lesser degree the inferior aspect of the right upper lobe.. No change in trace right pleural effusion 5. Top normal heart size 6. Stable mediastinum and osseous structures There is no demonstrated abnormality of the visualized soft tissue structures of the upper abdomen. RAD/Chest Insp/Exp 2 View IMPRESSION: * Status post left thoracentesis. Status post evacuation of 80% of the previously seen large left pleural effusion with only a small volume remaining in the lower lobe. Mild to moderate bilateral pneumonia Electronically Signed: Nelson Ferrell MD at 8:50 EDT ,
[2023-05-26 08:37] LABS: ALB/GLOB Ratio 0.4 RATIO (0.9-2.4); Globulin 4.7 g/dL (2.2-4.2); LDH 228 U/L (87-241); Protein, Total 6.8 g/dL (6.4-8.2)
[2023-05-26] MEDS: Atorvastatin Calcium 80 MG Tablet PO (09:47)
--- NOTE | 2023-05-26 09:51 | EX.PCM.CONCC ---
Assessment & Plan Assessment/Plan (1) Acute respiratory failure with hypoxia: (2) Pleural effusion on left: (3) Mass of left lung: PLAN: Plan RECOMMENDATIONS: 1. Likely okay to discontinue antibiotics 2. Aggressive pulmonary recruitment measures 3. Schedule thoracentesis by IR versus Pleurx catheter by surgery in 2 to 3 weeks 4. Outpatient hospice versus oncology referral 5. Okay to discharge once able to tolerate saturations on 5 to 6 L/min at rest 6. Patient potentially could be discharged later today IMPRESSIONS: 1. Acute on chronic hypoxic respiratory failure secondary to large malignant pleural effusion Patient with non-small cell lung carcinoma resulting in a malignant pleural effusion on the left. Chest x-ray shows rapid filling over the previous 3 weeks. Clinical suspicion is leukocytosis and hypoxia is related to the recruitment of the left lung. Patient has had 3 L removed today. Recommend aggressive pulmonary recruitment measures. Patient likely does not require antibiotics at this time. Patient is having significant concerns about a plan moving forward. Patient has been confirmed with a non-small cell lung carcinoma. The patient is not willing to have an evaluation by oncology, hospice referral would be appropriate to help with symptomatic control. Patient could have serial outpatient thoracentesis versus a Pleurx catheter in either scenario. To avoid future hospitalizations, patient could have a scheduled thoracentesis/thoracic ultrasound scheduled in 2 to 3 weeks as an outpatient. 2. Hypertension/hyperlipidemia/tobacco abuse/chronic kidney disease Complicates care, management, recovery and prognosis. Patient is precontemplative on smoking cessation at this time. HPI Consult Data Date of Consult: 05/26/23 HPI Narrative Reason for Consultation: Possible pneumonia HPI Narrative: IRVING ULLOA is a 67 M, past medical history listed below and well-known to me from previous visits, who presents to [facility] on 05/25/2023 secondary to progressive shortness of breath. Patient had called EMS and was transferred to [facility] with complaints of shortness of breath. Patient does have a recent diagnosis of non-small cell lung cancer with multiple pleural effusions, but has not seen oncology secondary to concerns that he does not want treatment. There was some concern for sepsis, so the patient was transferred to [facility] for further evaluation. On arrival to [facility], patient was noted to have a temperature of 100 ?F and tachycardic at 120 bpm. Patient was tachypneic at 20 breaths/min and did have a blood pressure as low as 96/72. Patient was initially requiring 9 L nasal cannula to maintain saturations. Physical exam showed a significant left-sided effusion, so a thoracentesis was ordered. Patient was discharged on 6 L/min previously. Patient was empirically started on antibiotics. A pulmonary consult was obtained to give an opinion on whether antibiotics needed continued. This morning, patient was taken to IR and did have approximately 3 L of fluid removed from the left chest with significant improvement in left-sided effusion. Patient still had probably 500 to 800 cc of residual fluid by ultrasound noted. Review of the medical chart shows the patient has had a thoracentesis on 04/26/2023, 05/04/2023 and now 05/26/2023. Each of these yielded between 1.5 and 3 L of fluid. Patient states he feels subjectively much improved after the thoracentesis. Patient is not reporting any fevers or chills at home. Patient has not had any trauma. Patient is still highly resistant to being aggressive. Review of systems otherwise negative from a constitutional, HEENT, respiratory, cardiovascular, GI, genitourinary, musculoskeletal, skin, neurologic, psychiatric and hematologic system unless stated above. [facility] Medical History Chest pain Chronic pain CKD (chronic kidney disease) COPD (chronic obstructive pulmonary disease) BUTCHER (dyspnea on exertion) Hypertension Hypothyroidism Irregular heart beat Kidney disease Mass of upper lobe of left lung Smoker Substance abuse Tobacco abuse Home Medications metoprolol tartrate 25 mg tablet 25 mg PO BID for blood pressure 03/26/18 [History Last Taken 05/24/23] rosuvastatin 40 mg tablet 40 mg PO DAILY for cholesterol 03/27/23 [History Last Taken 05/25/23] omega 0-ncz-nln-fish oil 300 mg-1,000 mg capsule (Fish Oil) 1 cap PO BID supplement 04/24/23 [History Last Taken 05/25/23] Allergy/AdvReac Type Severity Reaction Status Date / Time No Known Allergies Allergy Verified 04/24/23 15:07 Family History Brother Cancer Kidney disease Mother Heart disease Grandfather Cancer LUNG Surgical History History of left nephrectomy Social History (Updated 05/26/23 @ 10:[address] Rajesh Ibarra MD) Smoking Status: Current every day smoker tobacco type: cigarettes quit status: not considering quitting counseling given: provider counseling ROS ROS Narrative See HPI Physical Exam Const alert, oriented x3 and no apparent distress Constitutional Narrative: Appears older than stated age. No conversational dyspnea. Intermittent productive cough HEENT head/scalp atraumatic Teeth and Gingiva: poor dentition Eyes PERRL, EOMs intact bilaterally and conjunctivae normal Eyes Narrative: Slight scleral injection Neck full ROM Chest Chest Narrative: Decreased expansion on the left Resp normal respiratory effort, no retractions and no use of accessory muscles Effort and Inspection: actively coughing productive Auscultation: rhonchi; Negative for rales or wheezes Percussion: dullness Lower: left Cardio regular rate, regular rhythm, S1 normal heart sound and S2 normal heart sound GI normal to inspection, nondistended, normoactive bowel sounds Extremity normal to inspection General Extremity: clubbing; Negative for edema Skin no rashes or lesions noted Neuro oriented x3, CN's II-XII intact bilaterally, moves all extremities and no focal motor deficits Psych Activity / Motor Behavior: restless Medical Records Data Attestation: I reviewed the patient's medical records Medical records narrative: Patient diagnosed with a non-small cell lung cancer. Today makes 3 thoracenteses in the last month with over 6-1/2 L removed. Lab / Micro Data 05/26/23 06:05 05/26/23 06:05 Labs: Laboratory Results - last 24 hr 05/25/23 14:33: PT 14.8, INR 1.2 05/25/23 20:00: MRSA (PCR) Negative 05/25/23 20:16: Sodium 135 L, Potassium 5.0, Chloride 95 L, Carbon Dioxide 36.0 H, Anion Gap 4 L, BUN 24 H, Creatinine 1.36 H, Estim Creat Clear Calc 55.76, Est GFR (MDRD) Af Amer 68, Est GFR (MDRD) Non-Af 56 L, BUN/Creatinine Ratio 17.6, Glucose 130 H, Calcium 9.3 05/26/23 06:05: WBC 17.3 H, RBC 4.84, Hgb 11.6 L, Hct 42.7, MCV 88.2, MCH 24.0 L, MCHC 27.2 L, RDW Std Deviation 58.2 H, RDW Coeff of [place] 18.2 H, Plt Count 228, MPV 8.4, Immature Gran % (Auto) 0.400, Neut % (Auto) 90.8 H, Lymph % (Auto) 1.6 L, [place] % (Auto) 6.9, Eos % (Auto) 0.1, Baso % (Auto) 0.2, Absolute Neuts (auto) 15.7 H, Absolute Lymphs (auto) 0.28 L, Nucleated RBC % 0, Differential Comment SCANNED, Sodium 133 L, Potassium 5.3 H, Chloride 95 L, Carbon Dioxide 35.0 H, Anion Gap 3 L, BUN 25 H, Creatinine 1.39 H, Estim Creat Clear Calc 54.56, Est GFR (MDRD) Af Amer 66, Est GFR (MDRD) Non-Af 54 L, BUN/Creatinine Ratio 18.0, Glucose 111 H, Calcium 8.9, Lactate Dehydrogenase 228, Total Protein 6.8, Globulin 4.7 H, Albumin/Globulin Ratio 0.4 L Radiology Impression Chest X-Ray 05/25/23 19:50 IMPRESSION: 1. Large left pleural effusion, increased in size as compared to 05/04/2023. 2. Increased density in the left upper lung bases secondary to a layering pleural effusion versus atelectasis versus infiltrate. 3. Right lung interstitial opacities which may represent mild edema. Electronically Signed: Sudhir Schmidt DO at 20:09 EDT , Chest X-Ray 05/26/23 08:32 IMPRESSION: * Status post left thoracentesis. Status post evacuation of 80% of the previously seen large left pleural effusion with only a small volume remaining in the lower lobe. Mild to moderate bilateral pneumonia Electronically Signed: Nelson Ferrell MD at 8:50 EDT , Charges/Coding Visit Charges Inpatient E&M: 55187 Init Hosp L3 (Excluding time spent on morning procedure)
--- NOTE | 2023-05-26 11:43 | PCM.OP.PRO ---
Procedure Report Date of Procedure: 05/26/23 Assessment & Plan Assessment/Plan (1) Pleural effusion: PLAN: PROCEDURE: Ultrasound Guided Thoracentesis DATE: May 26, 2023 INDICATION: Male, 67 years old. Large left pleural effusion. PROVIDER: REYMUNDO Aden proctored by Dr. Rajesh Ibarra PROCEDURE: The risks, benefits, and alternatives to the procedure were explained to the patient. The specific risks of bleeding, infection, and pneumothorax requiring chest tube insertion were discussed and accepted. Written informed consent was obtained. Ultrasonographic evaluation of the bilateral lower pleural spaces was carried out. An adequate pocket was identified in the left pleural space. The patient was placed in the sitting, upright position. The overlying skin was prepped and draped in sterile fashion. 2% lidocaine was administered subcutaneously for local anesthesia. Under ultrasound guidance, a 5-Algerian thoracentesis needle/catheter system was advanced into the left posterior lower pleural fluid collection. Unable to obtain fluid drainage at this site due to bent thoracentesis catheter. Procedure was continued with second 5 Algerian thoracentesis needle/catheter system. This was successful. Approximately 3050 ml of dark red colored fluid was drained. The catheter was removed, and a sterile dressing was applied. The patient tolerated the procedure well. A chest x-ray was ordered. IMPRESSION: Successful thoracentesis of left pleural space. Procedures Radiology Radiology US Procedures: 38828 Thoracentesis
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
--- NOTE | 2023-05-26 14:56 | PCM.HOSP.N ---
Hospitalist Note Discussed diagnosis and implications of stage IV lung cancer and importance of follow up with oncology if he wishes to look into treatment options and after discussing at length he was able to verbalize back that he would sooner if he chose not to follow up. Also discussed that if he was considering treatment he would need to forgo pleurex catheter and undergo serial thoracenteses on an outpatient basis to stay out of the hospital in the meantime and he verbalized his understanding. We discussed barriers to care and questions answered. Offered to inform pts mother about this/the importance as she is a large support for him but he did not request further discussion. Pt will need to call to f/u with Dr. Crocker on d/c and call Dr. Bowen office to schedule a thora in 1-2 weeks. Pt verbalized his understanding again and importance of this.
--- NOTE | 2023-05-26 15:27 | CASEMGMT ---
Per RN CM patient patient is upset and having some coping issues. Physician told SW patient was asking about transportation issues. SW met with patient. Introduced self and role at [facility]. SW spoke with patient regarding his concerns. SW listened and provided emotional support as patient voiced frustrations over his mom. Patient said she applied for Medicaid. SW asked patient if he has applied for disability and he said he needs to make sure he has enough O2 to last him while he is at the appointment. SW told patient he can also apply by phone. Patient told him his brother said you cannot. SW provided patient with a [facility] transportation resource guide. Lizette RAZO
--- NOTE | 2023-05-26 15:55 | CHAPLAIN ---
Type of Pastoral Visit _x__ Initial Visit ___ Follow-up Visit ___ On-call Visit ___ General Patient Visit ___ Spiritual Assessment ___ Family Conference ___ Bereavement ___ Rapid Response ___ Code Blue ___ Other (describe below) Pastoral Care Referral From _x__ Patient ___ Family ___ Nurse ___ Physician ___ Internal Controls Manager ___ [place] ___ Other (describe below) Sacrament/Intervention _x__ Active listening ___ Anointing ___ Yazidi ___ Bereavement ___ Communion ___ Bijal exploration ___ _x__ Life review ___ Prayer ___ Reconciliation ___ Sacrament of Sick _x__ Supportive presence ___ Wedding ___ Other (describe below) Pastoral Comments patient was seen in a previous admission; pt speaks of his current health situation and acknowledges that it is not a good scenario; pt states that his 93 year old mother is not totally aware that I am stage 4 and she just can't handle this; pt speaks in negative about his life and how people can't be trusted and people are too busy and there are many excuses about his own care and follow up; asked about how he sherine, he admits not real well but when offered to make suggestions the patient had excuses again; when asked about any spiritual support, the patient declined such and stated I've not been to religion in at least 45 years and I'm fine; pt could not think of anything that would help him when asked about other methods of support or care; this embedded software programmer offered best wishes and ongoing presence while a patient in the hospital
[2023-05-26] MEDS: Sodium Polystyrene Sulfonate 15 GM/60 ML UDC PO (16:07)
[2023-05-26] MEDS: oxyCODONE 5 MG Tablet PO (18:23)
[2023-05-27] VITALS (27 sets, daily range): BP systolic 92–120; BP diastolic 60–77; PULSE 99–120; RESP 18–29; TEMP 36.4–36.8; O2SAT 86–99
--- NOTE | 2023-05-27 06:00 | RAD_ITS ---
STUDY: X-RAY CHEST REASON FOR EXAM: Male, 67 years old. Pleural effusion TECHNIQUE: Single AP portable view of the chest. COMPARISON: May 26, 2023 FINDINGS: There are monitoring devices. There is 3.9 cm left upper lobe mass. There are moderate interstitial and airspace increased opacities of the lungs. There is small left pleural effusion. There is mild cardiac enlargement. Normal mediastinum and casimiro. Normal visualized pulmonary arteries. Normal visualized aortic arch and descending thoracic aorta. Normal visualized thoracic spine. Normal visualized ribs, clavicles, and shoulders. There is no demonstrated abnormality of the visualized soft tissue structures of the upper abdomen. RAD/Chest 1 View (Portable) IMPRESSION: Bilateral edema or pneumonia. Small left pleural effusion. Left upper lobe mass. Electronically Signed: Ahmet Wood MD at 10:21 EDT ,
[2023-05-27 07:57] LABS: Absolute Lymphocyte Count 0.26 X10^3/uL (0.83-4.51); Absolute Neutrophil Count 10.4 X10^3/uL (2.0-7.7); Basophil# 0.03 X10^3/uL; Basophil% 0.3 % (0-1); Eosinophil# 0.15 X10^3/uL; Eosinophils% 1.3 % (0-5); Hematocrit 38.8 % (40-54); Hemoglobin 10.7 g/dL (13.0-16.5); Lymphocyte # 0.26 X10^3/ul (0.83-4.51); Lymphocyte % 2.2 % (19-41); Mean Corp Hgb Conc 27.6 g/dL (32-36); Mean Corpuscular Hgb 23.9 pg (27.0-32.0); Mean Corpuscular Volume 86.6 fL (80-94); Mean Platelet Vol. 8.8 fl (6.2-12.0); Monocyte# 0.96 X10^3/uL; Monocyte% 8.1 % (0-10); NRBC Flagged by Analyzer 0 % (0-5); Neutrophil # 10.36 X10^3/uL (2.7-7.7); Neutrophil % 87.6 % (47-70); POSITIVE DIFFERENTIAL YES; Platelet Count 230 K/mm3 (150-450); RBC Distribution Width CV 18.2 % (11.6-14.6); RBC Distribution Width SD 57.6 fl (35.1-43.9); Red Blood Count 4.48 M/mm3 (4.6-6.2); White Blood Count 11.8 K/mm3 (4.4-11.0)
--- NOTE | 2023-05-27 08:00 | PN.HOSP_ITS ---
Reason for Visit Reason for Visit: Diagnoses Pleural effusion, not elsewhere classified (05/25/23) Acute respiratory failure with hypoxia (05/25/23) Other nonspecific abnormal finding of lung field (05/25/23) Subjective Subjective Patient is a 67-year-old gentleman with recently diagnosed metastatic non-small cell carcinoma involving the lung presented with progressive shortness of breath. Found to have pleural effusion with significant hypoxia admitted to a monitored bed for further management Objective Data Objective Data Vital Signs: Vital Signs Temp Pulse Resp BP Pulse Ox O2 Del Method O2 Flow Rate 98.0 F 116 H 18 108/69 94 High Flow 7 05/27/23 06:00 05/27/23 06:00 05/27/23 06:00 05/27/23 06:00 05/27/23 06:00 05/27/23 06:00 05/27/23 06:00 Oxygen Flow Rate (L/min) [5] 15 Oxygen Flow Rate (L/min) [4] 15 Oxygen Flow Rate (L/min) [3] 15 Oxygen Flow Rate (L/min) [2] 15 Oxygen Flow Rate (L/min) [1 ( 15 Initial Baseline)] Oxygen Flow Rate (L/min) 7 Oxygen Delivery Method [5] High Flow Oxygen Delivery Method [4] High Flow Oxygen Delivery Method [3] High Flow Oxygen Delivery Method [2] High Flow Oxygen Delivery Method [1 ( High Flow Initial Baseline)] Oxygen Delivery Method High Flow Weight: 72.802 kg Body Mass Index (BMI) 22.4 Intake & Output: Intake and Output for Last 24 Hours 05/25/23 05/26/23 05/27/23 23:59 23:59 23:59 Intake Total 475 / 475 820 / 1070 400 / 400 Output Total 480 / 480 4200 / 4200 550 / 550 Balance -5 / -5 -3380 / -3130 -150 / -150 Lab / Micro Data 05/27/23 07:41 05/27/23 07:41 Labs: Laboratory Results - last 24 hr 05/26/23 06:05: Lactate Dehydrogenase 228, Total Protein 6.8, Globulin 4.7 H, Albumin/Globulin Ratio 0.4 L Radiography Diagnostic Testing: Radiology Impression Chest X-Ray 05/26/23 08:32 IMPRESSION: * Status post left thoracentesis. Status post evacuation of 80% of the previously seen large left pleural effusion with only a small volume remaining in the lower lobe. Mild to moderate bilateral pneumonia Electronically Signed: Nelson Ferrell MD at 8:50 EDT Reading Location ID and State: [facility] / [place] , Service support , Physical Exam Narrative GENERAL: cooperative HEENT: Atraumatic; normocephalic EYES; Anicteric, Normal Conjunctiva NECK; supple, normal thyroid, RESPIRATORY: Diminished to auscultation CARDIOVASCULAR: Regular S1 S2, GI: soft, normoactive bowel sounds, : No Renal angle tenderness; EXTREMITIES: No edema, no clubbing, MUSCULOSKELETAL: no muscle wasting NEURO: Awake; no lateralizing signs. SKIN: No Rash PSYCH; Flat affect Assessment & Plan Assessment/Plan (1) Acute respiratory failure with hypoxia: (2) Pleural effusion: PLAN: Plan Patient is a 67-year-old gentleman with recently diagnosed metastatic non-small cell carcinoma involving the lung presented with progressive shortness of breath. Found to have pleural effusion with significant hypoxia admitted to a monitored bed for further management 1. Acute hypoxic respiratory failure ? Secondary to malignant pleural effusion patient underwent ultrasound-guided thoracentesis on 05/25/2023 with evacuation of 80% on seen large pleural effusion. his a.m. discussions were held with the patient regarding subsequent management given his recurrent pleural effusion. Patient yet to decide on how he intends to proceed including placement of Pleurx catheter if needed 2. Suspected pneumonia with MDR's ? Patient started on Zosyn cultures sent 3. Recently diagnosed metastatic non-small cell carcinoma involving the lung -Patient to follow-up with oncology once medically stable 4. Chronic kidney disease stage III ? Kidney function at baseline 5. Dyslipidemia -Patient is on statin therapy, continued at home dose 6. Hypertension - Blood pressure controlled, home medications continued with dose adjustment as needed 7. Anemia - Secondary to chronic disorder monitoring H&H and transfuse if patient becomes symptomatic or hemoglobin falls below 7 8. DVT prophylaxis ? [place] Lovenox Time spent in the patient's overall evaluation,decision-making process, review of diagnostic data, adjustment of management, discussion with other providers, nursing nursing and ancillary staff involved in patient's care documentation, 50 Minutes Charges/Coding Visit Charges Inpatient E&M: 18551 Subs Hosp L3
[2023-05-27 08:08] LABS: Differential Indicated SCAN CRITERIA MET
[2023-05-27 08:15] LABS: Anion Gap 5 (5-15); BUN 23 mg/dL (7-18); Calcium,Total 8.7 mg/dL (8.5-10.1); Chloride 95 mmol/L (98-107); Creatinine, Serum 1.28 mg/dL (0.70-1.30); EST Glomerular Filtration Rate 60 mL/min (>60); Est Glom Filt Rate - Afr Amer 72 mL/min (>60); Estimated Creatinine Clearance 59.25 ml/min; Glucose 99 mg/dL (74-106); Potassium 4.4 mmol/L (3.5-5.1); Sodium Level 135 mmol/L (136-145)
[2023-05-27 08:31] LABS: Differential Comment SCANNED
[2023-05-27] MEDS: Atorvastatin Calcium 80 MG Tablet PO (09:07)
--- NOTE | 2023-05-27 09:45 | PN.CC_ITS ---
Assessment & Plan Assessment/Plan (1) Acute respiratory failure with hypoxia: (2) Pleural effusion on left: (3) Mass of left lung: PLAN: Plan RECOMMENDATIONS: 1. Consider arrangements for Pleurx catheter as an outpatient 2. Aggressive pulmonary recruitment measures 3. Initiate metoprolol for rate control 4. Outpatient hospice versus oncology referral 5. Okay to discharge once able to tolerate saturations on 5 to 6 L/min at rest 6. Patient potentially could be discharged if care plan can be arranged IMPRESSIONS: 1. Acute on chronic hypoxic respiratory failure secondary to large malignant pleural effusion Patient with non-small cell lung carcinoma resulting in a malignant pleural effusion on the left. Chest x-ray shows rapid filling over the previous 3 weeks. Clinical suspicion is leukocytosis and hypoxia is related to the recruitment of the left lung. Patient has had 3 L removed yesterday. Recommend aggressive pulmonary recruitment measures. Patient likely does not require antibiotics at this time. Patient is having significant concerns about a plan moving forward. Patient has been confirmed with a non-small cell lung carcinoma. The patient is not willing to have an evaluation by oncology, hospice referral would be appropriate to help with symptomatic control. Patient is stating that he would be open to a Pleurx catheter. A Pleurx catheter with compliance could lead to decreased risk of repeat hospitalization. 2. Hypertension/hyperlipidemia/tobacco abuse/chronic kidney disease Complicates care, management, recovery and prognosis. Patient persistent tachycardia, but has had issues with hypotension on previous admissions. Will initiate IV Lopressor for now and transition to p.o. if tolerates. Patient is precontemplative on smoking cessation at this time. Subjective Subjective Patient did okay overnight. Patient did have a significant increase in FiO2 requirements, but states he coughed up a mucous plug this morning and these are improving. Patient subjectively does not have a large change in overall status. Patient states he has decided that he would be willing to have a Pleurx catheter placed to avoid recurrent admissions. Patient is yet to make a decis ion on hospice versus oncology referral. Objective Data Objective Data Chest x-ray shows continued pleural effusion Vital Signs: Vital Signs Temp Pulse Resp BP Pulse Ox O2 Del Method O2 Flow Rate 36.4 C L 120 H 18 140/63 H 94 High Flow 13 05/27/23 09:00 05/27/23 09:00 05/27/23 09:00 05/27/23 09:00 05/27/23 09:00 05/27/23 09:00 05/27/23 09:00 Oxygen Flow Rate (L/min) [5] 15 Oxygen Flow Rate (L/min) [4] 15 Oxygen Flow Rate (L/min) [3] 15 Oxygen Flow Rate (L/min) [2] 15 Oxygen Flow Rate (L/min) [1 ( 15 Initial Baseline)] Oxygen Flow Rate (L/min) 13 Oxygen Delivery Method [5] High Flow Oxygen Delivery Method [4] High Flow Oxygen Delivery Method [3] High Flow Oxygen Delivery Method [2] High Flow Oxygen Delivery Method [1 ( High Flow Initial Baseline)] Oxygen Delivery Method High Flow Weight: 72.802 kg Body Mass Index (BMI) 22.4 Intake & Output: Intake and Output for Last 24 Hours 05/25/23 05/26/23 05/27/23 23:59 23:59 23:59 Intake Total 475 / 475 820 / 1070 400 / 400 Output Total 480 / 480 4200 / 4200 550 / 550 Balance -5 / -5 -3380 / -3130 -150 / -150 Lab / Micro Data Attestation: I reviewed the patient's lab results. 05/27/23 07:41 05/27/23 07:41 Labs: Laboratory Results - last 24 hr 05/27/23 07:41: WBC 11.8 H, RBC 4.48 L, Hgb 10.7 L, Hct 38.8 L, MCV 86.6, MCH 23.9 L, MCHC 27.6 L, RDW Std Deviation 57.6 H, RDW Coeff of Jeffrey 18.2 H, Plt Count 230, MPV 8.8, Immature Gran % (Auto) 0.500, Neut % (Auto) 87.6 H, Lymph % (Auto) 2.2 L, Hettinger % (Auto) 8.1, Eos % (Auto) 1.3, Baso % (Auto) 0.3, Absolute Neuts (auto) 10.4 H, Absolute Lymphs (auto) 0.26 L, Nucleated RBC % 0, Differential Comment SCANNED, Sodium 135 L, Potassium 4.4, Chloride 95 L, Carbon Dioxide 35.0 H, Anion Gap 5, BUN 23 H, Creatinine 1.28, Estim Creat Clear Calc 59.25, Est GFR (MDRD) Af Amer 72, Est GFR (MDRD) Non-Af 60, BUN/Creatinine Ratio 18.0, Glucose 99, Calcium 8.7 Rhythm Strip Rhythm Strip: Sinus Rhythm Rate: 120 Physical Exam Const alert, oriented x3 and no apparent distress Constitutional Narrative: Appears older than stated age. No conversational dyspnea. Intermittent productive cough HEENT head/scalp atraumatic Teeth and Gingiva: poor dentition Eyes PERRL, EOMs intact bilaterally and conjunctivae normal Eyes Narrative: Slight scleral injection Neck full ROM Chest Chest Narrative: Decreased expansion on the left Resp normal respiratory effort, no retractions and no use of accessory muscles Effort and Inspection: actively coughing productive Auscultation: rhonchi; Negative for rales or wheezes Percussion: dullness Lower: left Cardio regular rate, regular rhythm, S1 normal heart sound and S2 normal heart sound GI normal to inspection, nondistended, normoactive bowel sounds Extremity normal to inspection General Extremity: clubbing; Negative for edema Skin no rashes or lesions noted Neuro oriented x3, CN's II-XII intact bilaterally, moves all extremities and no focal motor deficits Psych Activity / Motor Behavior: restless Charges/Coding Visit Charges Inpatient E&M: 08961 Subs Hosp L3
[2023-05-27] MEDS: Metoprolol Tartrate 5 MG/5 ML Vial IV ×2 (12:09→17:55)
[2023-05-27] MEDS: Enoxaparin 40 MG/0.4 ML Syringe SC (12:16)
[2023-05-27] MEDS: 0.9% Saline Lock 10 ML Syringe IV (17:55)
[2023-05-27] MEDS: Acetaminophen 325 MG Tablet 650 MG PO (20:00)
[2023-05-28] VITALS (36 sets, daily range): BP systolic 86–114; BP diastolic 54–77; PULSE 93–113; RESP 19–37; TEMP 36.4–36.9; O2SAT 86–100
[2023-05-28] MEDS: 0.9% Saline Lock 10 ML Syringe IV (05:02)
[2023-05-28] MEDS: Metoprolol Tartrate 5 MG/5 ML Vial IV (05:02)
[2023-05-28 06:05] LABS: Absolute Lymphocyte Count 0.26 X10^3/uL (0.83-4.51); Absolute Neutrophil Count 8.6 X10^3/uL (2.0-7.7); Basophil# 0.02 X10^3/uL; Basophil% 0.2 % (0-1); Eosinophil# 0.27 X10^3/uL; Eosinophils% 2.7 % (0-5); Hematocrit 36.7 % (40-54); Hemoglobin 10.1 g/dL (13.0-16.5); Lymphocyte # 0.26 X10^3/ul (0.83-4.51); Lymphocyte % 2.6 % (19-41); Mean Corp Hgb Conc 27.5 g/dL (32-36); Mean Corpuscular Hgb 23.7 pg (27.0-32.0); Mean Corpuscular Volume 86.2 fL (80-94); Mean Platelet Vol. 9.3 fl (6.2-12.0); Monocyte# 0.88 X10^3/uL; Monocyte% 8.7 % (0-10); NRBC Flagged by Analyzer 0 % (0-5); Neutrophil # 8.59 X10^3/uL (2.7-7.7); Neutrophil % 85.4 % (47-70); POSITIVE DIFFERENTIAL YES; Platelet Count 241 K/mm3 (150-450); RBC Distribution Width SD 56.4 fl (35.1-43.9); Red Blood Count 4.26 M/mm3 (4.6-6.2); White Blood Count 10.1 K/mm3 (4.4-11.0)
[2023-05-28 06:12] LABS: Differential Indicated SCAN CRITERIA MET
[2023-05-28 07:00] LABS: Anion Gap 7 (5-15); BUN 25 mg/dL (7-18); BUN/Creat Ratio 19.7 RATIO (10-20); Calcium,Total 8.6 mg/dL (8.5-10.1); Chloride 93 mmol/L (98-107); Creatinine, Serum 1.27 mg/dL (0.70-1.30); EST Glomerular Filtration Rate 60 mL/min (>60); Est Glom Filt Rate - Afr Amer 73 mL/min (>60); Estimated Creatinine Clearance 59.71 ml/min; Glucose 109 mg/dL (74-106); Potassium 3.8 mmol/L (3.5-5.1); Sodium Level 134 mmol/L (136-145)
--- NOTE | 2023-05-28 07:28 | PCM.PN.INT ---
Assessment & Plan Assessment/Plan (1) Acute respiratory failure with hypoxia: (2) Pleural effusion on left: (3) Mass of left lung: PLAN: Plan RECOMMENDATIONS: 1. Consider arrangements for Pleurx catheter as an outpatient 2. Aggressive pulmonary recruitment measures 3. Transition to p.o. metoprolol given tolerance of IV for 24 hours 4. Outpatient hospice versus oncology referral 5. Okay to discharge once able to tolerate saturations on 5 to 6 L/min at rest 6. Patient may need a therapeutic thoracentesis tomorrow pending timing of Pleurx catheter eval IMPRESSIONS: 1. Acute on chronic hypoxic respiratory failure secondary to large malignant pleural effusion Patient with non-small cell lung carcinoma resulting in a malignant pleural effusion on the left. Chest x-ray shows rapid filling over the previous 3 weeks. Clinical suspicion is leukocytosis and hypoxia is related to the recruitment of the left lung. Patient has had 3 L removed at the start of the hospitalization. Recommend aggressive pulmonary recruitment measures. Patient likely does not require antibiotics at this time and has not decompensated off of antibiotics over the last 48 hours. Patient is having significant concerns about a plan moving forward. Patient has been confirmed with a non-small cell lung carcinoma. The patient is not willing to have an evaluation by oncology, hospice referral would be appropriate to help with symptomatic control. Patient is stating that he would be open to a Pleurx catheter. A Pleurx catheter with compliance could lead to decreased risk of repeat hospitalization. 2. Hypertension/hyperlipidemia/tobacco abuse/chronic kidney disease Complicates care, management, recovery and prognosis. Patient persistent tachycardia, but has had issues with hypotension on previous admissions. Will initiate IV Lopressor for now and transition to p.o. if tolerates. Patient is precontemplative on smoking cessation at this time. Subjective Subjective Patient subjectively unchanged compared to previous. Patient continues to report a productive cough overnight. Patient's oxygen requirements have also increased overnight, but he is not reporting any change in overall condition subjectively. Objective Data Objective Data Vital Signs: Vital Signs Temp Pulse Resp BP Pulse Ox O2 Del Method O2 Flow Rate 36.9 C 101 H 20 H 98/66 91 High Flow 12 05/28/23 05:02 05/28/23 06:00 05/28/23 05:02 05/28/23 06:00 05/28/23 06:00 05/28/23 06:00 05/28/23 06:00 Oxygen Flow Rate (L/min) [5] 15 Oxygen Flow Rate (L/min) [4] 15 Oxygen Flow Rate (L/min) [3] 15 Oxygen Flow Rate (L/min) [2] 15 Oxygen Flow Rate (L/min) [1 ( 15 Initial Baseline)] Oxygen Flow Rate (L/min) 12 Oxygen Delivery Method [5] High Flow Oxygen Delivery Method [4] High Flow Oxygen Delivery Method [3] High Flow Oxygen Delivery Method [2] High Flow Oxygen Delivery Method [1 ( High Flow Initial Baseline)] Oxygen Delivery Method High Flow Weight: 72.802 kg Body Mass Index (BMI) 22.4 Intake & Output: Intake and Output for Last 24 Hours 05/26/23 05/27/23 05/28/23 23:59 23:59 23:59 Intake Total 820 / 1070 1120 / 1120 400 / 400 Output Total 4200 / 4200 1650 / 1650 400 / 400 Balance -3380 / -3130 -530 / -530 0 / 0 Lab / Micro Data Attestation: I reviewed the patient's lab results. 05/28/23 05:21 05/28/23 05:21 Labs: Laboratory Results - last 24 hr 05/27/23 07:41: WBC 11.8 H, RBC 4.48 L, Hgb 10.7 L, Hct 38.8 L, MCV 86.6, MCH 23.9 L, MCHC 27.6 L, RDW Std Deviation 57.6 H, RDW Coeff of Jeffrey 18.2 H, Plt Count 230, MPV 8.8, Immature Gran % (Auto) 0.500, Neut % (Auto) 87.6 H, Lymph % (Auto) 2.2 L, Cooke % (Auto) 8.1, Eos % (Auto) 1.3, Baso % (Auto) 0.3, Absolute Neuts (auto) 10.4 H, Absolute Lymphs (auto) 0.26 L, Nucleated RBC % 0, Differential Comment SCANNED, Sodium 135 L, Potassium 4.4, Chloride 95 L, Carbon Dioxide 35.0 H, Anion Gap 5, BUN 23 H, Creatinine 1.28, Estim Creat Clear Calc 59.25, Est GFR (MDRD) Af Amer 72, Est GFR (MDRD) Non-Af 60, BUN/Creatinine Ratio 18.0, Glucose 99, Calcium 8.7 05/28/23 05:21: WBC 10.1, RBC 4.26 L, Hgb 10.1 L, Hct 36.7 L, MCV 86.2, MCH 23.7 L, MCHC 27.5 L, RDW Std Deviation 56.4 H, RDW Coeff of Jeffrey 18.0 H, Plt Count 241, MPV 9.3, Immature Gran % (Auto) 0.400, Neut % (Auto) 85.4 H, Lymph % (Auto) 2.6 L, Cooke % (Auto) 8.7, Eos % (Auto) 2.7, Baso % (Auto) 0.2, Absolute Neuts (auto) 8.6 H, Absolute Lymphs (auto) 0.26 L, Nucleated RBC % 0, Sodium 134 L, Potassium 3.8, Chloride 93 L, Carbon Dioxide 34.0 H, Anion Gap 7, BUN 25 H, Creatinine 1.27, Estim Creat Clear Calc 59.71, Est GFR (MDRD) Af Amer 73, Est GFR (MDRD) Non-Af 60, BUN/Creatinine Ratio 19.7, Glucose 109 H, Calcium 8.6 Radiography Diagnostic Testing: Radiology Impression Chest X-Ray 05/27/23 06:00 IMPRESSION: Bilateral edema or pneumonia. Small left pleural effusion. Left upper lobe mass. Electronically Signed: Ahmet Wood MD at 10:21 EDT Reading Location ID and State: [address] [place] [address] , Service support , Rhythm Strip Rhythm Strip: Sinus Rhythm Rate: 101 Physical Exam Const alert, oriented x3 and no apparent distress Constitutional Narrative: Appears older than stated age. No conversational dyspnea. Intermittent productive cough HEENT head/scalp atraumatic Eyes PERRL, EOMs intact bilaterally and conjunctivae normal Eyes Narrative: Slight scleral injection Neck full ROM Chest Chest Narrative: Decreased expansion on the left Resp normal respiratory effort, no retractions and no use of accessory muscles Effort and Inspection: actively coughing productive Auscultation: rhonchi; Negative for rales or wheezes Percussion: dullness Lower: left Cardio regular rate, regular rhythm, S1 normal heart sound and S2 normal heart sound GI normal to inspection, nondistended, normoactive bowel sounds Extremity normal to inspection General Extremity: clubbing; Negative for edema Skin no rashes or lesions noted Neuro oriented x3, CN's II-XII intact bilaterally, moves all extremities and no focal motor deficits Psych cooperative and affect normal Charges/Coding Visit Charges Inpatient E&M: 53417 Subs Hosp L3
--- NOTE | 2023-05-28 08:04 | PCM.PN.HOSP ---
Reason for Visit Reason for Visit: Diagnoses Pleural effusion, not elsewhere classified (05/25/23) Acute respiratory failure with hypoxia (05/25/23) Other nonspecific abnormal finding of lung field (05/25/23) Subjective Subjective Patient seen still remains significantly hypoxic currently on 14 L Flow per minute of oxygen. Repeated chest x-ray with plans for repeat thoracocentesis if patient has significant fluid. Patient may need to undergo Pleurx catheter placement Objective Data Objective Data Vital Signs: Vital Signs Temp Pulse Resp BP Pulse Ox O2 Del Method O2 Flow Rate 98.5 F 101 H 20 H 98/66 91 High Flow 12 05/28/23 05:02 05/28/23 06:00 05/28/23 05:02 05/28/23 06:00 05/28/23 06:00 05/28/23 06:00 05/28/23 06:00 Oxygen Flow Rate (L/min) [5] 15 Oxygen Flow Rate (L/min) [4] 15 Oxygen Flow Rate (L/min) [3] 15 Oxygen Flow Rate (L/min) [2] 15 Oxygen Flow Rate (L/min) [1 ( 15 Initial Baseline)] Oxygen Flow Rate (L/min) 12 Oxygen Delivery Method [5] High Flow Oxygen Delivery Method [4] High Flow Oxygen Delivery Method [3] High Flow Oxygen Delivery Method [2] High Flow Oxygen Delivery Method [1 ( High Flow Initial Baseline)] Oxygen Delivery Method High Flow Weight: 72.802 kg Body Mass Index (BMI) 22.4 Intake & Output: Intake and Output for Last 24 Hours 05/26/23 05/27/23 05/28/23 23:59 23:59 23:59 Intake Total 820 / 1070 1120 / 1120 400 / 400 Output Total 4200 / 4200 1650 / 1650 400 / 400 Balance -3380 / -3130 -530 / -530 0 / 0 Lab / Micro Data 05/28/23 05:21 05/28/23 05:21 Labs: Laboratory Results - last 24 hr 05/27/23 07:41: WBC 11.8 H, RBC 4.48 L, Hgb 10.7 L, Hct 38.8 L, MCV 86.6, MCH 23.9 L, MCHC 27.6 L, RDW Std Deviation 57.6 H, RDW Coeff of Jeffrey 18.2 H, Plt Count 230, MPV 8.8, Immature Gran % (Auto) 0.500, Neut % (Auto) 87.6 H, Lymph % (Auto) 2.2 L, [place] % (Auto) 8.1, Eos % (Auto) 1.3, Baso % (Auto) 0.3, Absolute Neuts (auto) 10.4 H, Absolute Lymphs (auto) 0.26 L, Nucleated RBC % 0, Differential Comment SCANNED, Sodium 135 L, Potassium 4.4, Chloride 95 L, Carbon Dioxide 35.0 H, Anion Gap 5, BUN 23 H, Creatinine 1.28, Estim Creat Clear Calc 59.25, Est GFR (MDRD) Af Amer 72, Est GFR (MDRD) Non-Af 60, BUN/Creatinine Ratio 18.0, Glucose 99, Calcium 8.7 05/28/23 05:21: WBC 10.1, RBC 4.26 L, Hgb 10.1 L, Hct 36.7 L, MCV 86.2, MCH 23.7 L, MCHC 27.5 L, RDW Std Deviation 56.4 H, RDW Coeff of Jeffrey 18.0 H, Plt Count 241, MPV 9.3, Immature Gran % (Auto) 0.400, Neut % (Auto) 85.4 H, Lymph % (Auto) 2.6 L, [place] % (Auto) 8.7, Eos % (Auto) 2.7, Baso % (Auto) 0.2, Absolute Neuts (auto) 8.6 H, Absolute Lymphs (auto) 0.26 L, Nucleated RBC % 0, Sodium 134 L, Potassium 3.8, Chloride 93 L, Carbon Dioxide 34.0 H, Anion Gap 7, BUN 25 H, Creatinine 1.27, Estim Creat Clear Calc 59.71, Est GFR (MDRD) Af Amer 73, Est GFR (MDRD) Non-Af 60, BUN/Creatinine Ratio 19.7, Glucose 109 H, Calcium 8.6 Radiography Diagnostic Testing: Radiology Impression Chest X-Ray 05/27/23 06:00 IMPRESSION: Bilateral edema or pneumonia. Small left pleural effusion. Left upper lobe mass. Electronically Signed: Ahmet Wood MD at 10:21 EDT , Rhythm Strip Rhythm Strip: Sinus Rhythm Rate: 101 Physical Exam Narrative GENERAL: cooperative HEENT: Atraumatic; normocephalic EYES; Anicteric, Normal Conjunctiva NECK; supple, normal thyroid, RESPIRATORY: Diminished to auscultation CARDIOVASCULAR: Regular S1 S2, GI: soft, normoactive bowel sounds, : No Renal angle tenderness; EXTREMITIES: No edema, no clubbing, MUSCULOSKELETAL: no muscle wasting NEURO: Awake; no lateralizing signs. SKIN: No Rash PSYCH; Flat affect Assessment & Plan Assessment/Plan (1) Acute respiratory failure with hypoxia: (2) Pleural effusion: PLAN: Plan Patient is a 67-year-old gentleman with recently diagnosed metastatic non-small cell carcinoma involving the lung presented with progressive shortness of breath. Found to have pleural effusion with significant hypoxia admitted to a monitored bed for further management 1. Acute hypoxic respiratory failure ? Secondary to malignant pleural effusion patient underwent ultrasound-guided thoracentesis on 05/25/2023 with evacuation of 80% on seen large pleural effusion. his a.m. discussions were held with the patient regarding subsequent management given his recurrent pleural effusion. Patient yet to decide on how he intends to proceed including placement of Pleurx catheter if needed ? 3Patient seen still remains significantly hypoxic currently on 14 L Flow per minute of oxygen. Repeated chest x-ray with plans for repeat thoracocentesis if patient has significant fluid. Patient may need to undergo Pleurx catheter placement 2. Suspected pneumonia with MDR's ? Patient started on Zosyn cultures sent 3. Recently diagnosed metastatic non-small cell carcinoma involving the lung -Patient to follow-up with oncology once medically stable 4. Chronic kidney disease stage III ? Kidney function at baseline 5. Dyslipidemia -Patient is on statin therapy, continued at home dose 6. Hypertension - Blood pressure controlled, home medications continued with dose adjustment as needed 7. Anemia - Secondary to chronic disorder monitoring H&H and transfuse if patient becomes symptomatic or hemoglobin falls below 7 8. DVT prophylaxis ? SC Lovenox Time spent in the patient's overall evaluation,decision-making process, review of diagnostic data, adjustment of management, discussion with other providers, nursing nursing and ancillary staff involved in patient's care documentation, 35 Minutes Charges/Coding Visit Charges Inpatient E&M: 40689 Subs Hosp L2
[2023-05-28] MEDS: Metoprolol Tartrate 25 MG Tablet PO ×2 (09:56→21:10)
[2023-05-28] MEDS: Enoxaparin 40 MG/0.4 ML Syringe SC (09:56)
[2023-05-28] MEDS: Atorvastatin Calcium 80 MG Tablet PO (09:57)
--- NOTE | 2023-05-28 09:59 | RAD_ITS ---
EXAM: XR CHEST, 1 VIEW CLINICAL INDICATION: dyspnea TECHNIQUE: Frontal view of the chest. COMPARISON: 05/27/2023 and CTA chest, 04/24/2023 FINDINGS: LUNGS AND PLEURAL SPACES: 3.6 cm density in the left upper lobe correlating with previously demonstrated mass. Left-sided pleural effusion with associated airspace disease which may be atelectasis and/or pneumonia. Peripheral pulmonary opacities in the right lung correlating with prior CT, perhaps secondary to chronic interstitial changes versus airspace disease which may be atelectasis or pneumonia. No pneumothorax. HEART: No significant abnormality. Cardiac silhouette not enlarged. MEDIASTINUM: Central airways and mediastinal contour are unremarkable. BONES/JOINTS: No significant abnormality. SOFT TISSUES: No significant abnormality. VASCULATURE: Atherosclerosis. RAD/Chest 1 View (Portable) IMPRESSION: 1. 3.6 cm density in the left upper lobe correlating with previously demonstrated mass. 2. Left-sided pleural effusion with associated airspace disease which may be atelectasis and/or pneumonia. 3. Peripheral pulmonary opacities in the right lung correlating with prior CT, perhaps secondary to chronic interstitial changes versus airspace disease which may be atelectasis or pneumonia. Electronically Signed: Olaf Burns DO at 11:52 EDT ,
[2023-05-28 10:54] LABS: Differential Comment SCANNED
[2023-05-28] MEDS: Acetaminophen 325 MG Tablet 650 MG PO ×2 (12:48→19:32)
[2023-05-29] VITALS (25 sets, daily range): BP systolic 99–119; BP diastolic 59–71; PULSE 93–118; RESP 18–30; TEMP 36.4–37.1; O2SAT 82–100
[2023-05-29] MEDS: guaiFENesin 10 ML UDC (200MG/10ML) PO ×3 (03:40→15:03)
[2023-05-29] MEDS: oxyCODONE 5 MG Tablet PO (03:40)
[2023-05-29 06:46] LABS: Absolute Neutrophil Count 8.5 X10^3/uL (2.0-7.7); Basophil# 0.05 X10^3/uL; Basophil% 0.5 % (0-1); Eosinophil# 0.25 X10^3/uL; Eosinophils% 2.4 % (0-5); Hematocrit 38.9 % (40-54); Hemoglobin 10.5 g/dL (13.0-16.5); Lymphocyte % 2.9 % (19-41); Mean Corpuscular Hgb 23.4 pg (27.0-32.0); Mean Corpuscular Volume 86.8 fL (80-94); Mean Platelet Vol. 8.7 fl (6.2-12.0); Monocyte# 1.04 X10^3/uL; Monocyte% 10.2 % (0-10); NRBC Flagged by Analyzer 0 % (0-5); Neutrophil # 8.53 X10^3/uL (2.7-7.7); Neutrophil % 83.4 % (47-70); POSITIVE DIFFERENTIAL YES; Platelet Count 243 K/mm3 (150-450); RBC Distribution Width CV 17.8 % (11.6-14.6); RBC Distribution Width SD 56.2 fl (35.1-43.9); Red Blood Count 4.48 M/mm3 (4.6-6.2); White Blood Count 10.2 K/mm3 (4.4-11.0)
[2023-05-29 06:49] LABS: Differential Indicated SCAN CRITERIA MET
[2023-05-29 07:11] LABS: Anion Gap 5 (5-15); BUN 24 mg/dL (7-18); BUN/Creat Ratio 21.2 RATIO (10-20); Calcium,Total 8.6 mg/dL (8.5-10.1); Chloride 92 mmol/L (98-107); Creatinine, Serum 1.13 mg/dL (0.70-1.30); EST Glomerular Filtration Rate 69 mL/min (>60); Est Glom Filt Rate - Afr Amer 84 mL/min (>60); Estimated Creatinine Clearance 67.11 ml/min; Glucose 117 mg/dL (74-106); Potassium 3.8 mmol/L (3.5-5.1); Sodium Level 133 mmol/L (136-145)
[2023-05-29 07:19] LABS: Anisocytosis 1+
[2023-05-29] MEDS: Enoxaparin 40 MG/0.4 ML Syringe SC (09:04)
[2023-05-29] MEDS: Atorvastatin Calcium 80 MG Tablet PO (09:05)
[2023-05-29] MEDS: Metoprolol Tartrate 25 MG Tablet PO ×2 (09:05→21:32)
--- NOTE | 2023-05-29 11:14 | PN.HOSP_ITS ---
Reason for Visit Reason for Visit: Diagnoses Pleural effusion, not elsewhere classified (05/25/23) Acute respiratory failure with hypoxia (05/25/23) Other nonspecific abnormal finding of lung field (05/25/23) Subjective Subjective Remains dyspneic at rest Objective Data Objective Data Vital Signs: Vital Signs Temp Pulse Resp BP Pulse Ox O2 Del Method O2 Flow Rate 98.6 F 118 H 29 H 99/67 92 Nasal Cannula 10 05/29/23 09:00 05/29/23 09:05 05/29/23 09:00 05/29/23 09:00 05/29/23 09:00 05/29/23 09:00 05/29/23 09:00 Oxygen Flow Rate (L/min) [5] 15 Oxygen Flow Rate (L/min) [4] 15 Oxygen Flow Rate (L/min) [3] 15 Oxygen Flow Rate (L/min) [2] 15 Oxygen Flow Rate (L/min) [1 ( 15 Initial Baseline)] Oxygen Flow Rate (L/min) 10 Oxygen Delivery Method [5] High Flow Oxygen Delivery Method [4] High Flow Oxygen Delivery Method [3] High Flow Oxygen Delivery Method [2] High Flow Oxygen Delivery Method [1 ( High Flow Initial Baseline)] Oxygen Delivery Method Nasal Cannula Weight: 72.802 kg Body Mass Index (BMI) 22.4 Intake & Output: Intake and Output for Last 24 Hours 05/27/23 05/28/23 05/29/23 23:59 23:59 23:59 Intake Total 1120 / 1120 880 / 880 500 / 500 Output Total 1650 / 1650 1275 / 1275 400 / 400 Balance -530 / -530 -395 / -395 100 / 100 Lab / Micro Data 05/29/23 05:52 05/29/23 05:52 Labs: Laboratory Results - last 24 hr 05/29/23 05:52: WBC 10.2, RBC 4.48 L, Hgb 10.5 L, Hct 38.9 L, MCV 86.8, MCH 23.4 L, MCHC 27.0 L, RDW Std Deviation 56.2 H, RDW Coeff of Jeffrey 17.8 H, Plt Count 243, MPV 8.7, Immature Gran % (Auto) 0.600, Neut % (Auto) 83.4 H, Lymph % (Auto) 2.9 L, [place] % (Auto) 10.2 H, Eos % (Auto) 2.4, Baso % (Auto) 0.5, Absolute Neuts (auto) 8.5 H, Absolute Lymphs (auto) 0.30 L, Nucleated RBC % 0, Anisocytosis 1+, Sodium 133 L, Potassium 3.8, Chloride 92 L, Carbon Dioxide 36.0 H, Anion Gap 5, BUN 24 H, Creatinine 1.13, Estim Creat Clear Calc 67.11, Est GFR (MDRD) Af Amer 84, Est GFR (MDRD) Non-Af 69, BUN/Creatinine Ratio 21.2 H, Glucose 117 H, Calcium 8.6 Radiography Diagnostic Testing: Radiology Impression Chest X-Ray 05/28/23 09:59 IMPRESSION: 1. 3.6 cm density in the left upper lobe correlating with previously demonstrated mass. 2. Left-sided pleural effusion with associated airspace disease which may be atelectasis and/or pneumonia. 3. Peripheral pulmonary opacities in the right lung correlating with prior CT, perhaps secondary to chronic interstitial changes versus airspace disease which may be atelectasis or pneumonia. Electronically Signed: Olaf Burns DO at 11:52 EDT , Rhythm Strip Rhythm Strip: Sinus Rhythm Rate: 101 Physical Exam Narrative GENERAL: cooperative HEENT: Atraumatic; normocephalic EYES; Anicteric, Normal Conjunctiva NECK; supple, normal thyroid, RESPIRATORY: Diminished to auscultation CARDIOVASCULAR: Regular S1 S2, GI: soft, normoactive bowel sounds, : No Renal angle tenderness; EXTREMITIES: No edema, no clubbing, MUSCULOSKELETAL: no muscle wasting NEURO: Awake; no lateralizing signs. SKIN: No Rash PSYCH; Flat affect Assessment & Plan Assessment/Plan (1) Acute respiratory failure with hypoxia: (2) Pleural effusion: PLAN: Plan Patient is a 67-year-old gentleman with recently diagnosed metastatic non-small cell carcinoma involving the lung presented with progressive shortness of judson th. Found to have pleural effusion with significant hypoxia admitted to a monitored bed for further management 1. Acute hypoxic respiratory failure ? Secondary to malignant pleural effusion patient underwent ultrasound-guided thoracentesis on 05/25/2023 with evacuation of 80% on seen large pleural effusion. his a.m. discussions were held with the patient regarding subsequent management given his recurrent pleural effusion. Patient yet to decide on how he intends to proceed including placement of Pleurx catheter if needed ? 05/28/2023atient seen still remains significantly hypoxic currently on 14 L Flow per minute of oxygen. Repeated chest x-ray with plans for repeat thoracocentesis if patient has significant fluid. Patient may need to undergo Pleurx catheter placement -05/29/2023; Repeat thoracentesis ordered for am 2. Suspected pneumonia with MDR's ? Patient started on Zosyn cultures sent 3. Recently diagnosed metastatic non-small cell carcinoma involving the lung -Patient to follow-up with oncology once medically stable 4. Chronic kidney disease stage III ? Kidney function at baseline 5. Dyslipidemia -Patient is on statin therapy, continued at home dose 6. Hypertension - Blood pressure controlled, home medications continued with dose adjustment as needed 7. Anemia - Secondary to chronic disorder monitoring H&H and transfuse if patient becomes symptomatic or hemoglobin falls below 7 8. DVT prophylaxis ? SC Lovenox Time spent in the patient's overall evaluation,decision-making process, review of diagnostic data, adjustment of management, discussion with other providers, nursing nursing and ancillary staff involved in patient's care documentation, 35 Minutes Charges/Coding Visit Charges Inpatient E&M: 94157 Subs Hosp L2
--- NOTE | 2023-05-29 11:40 | PN.CC_ITS ---
Assessment & Plan Assessment/Plan (1) Acute respiratory failure with hypoxia: (2) Pleural effusion on left: (3) Mass of left lung: PLAN: Plan RECOMMENDATIONS: 1. Obtain oncology consultation. 2. Proceed with therapeutic thoracentesis. 3. Wean supplemental oxygen to maintain saturations at or above 90%. 4. If the patient does not ultimately wish to pursue aggressive treatment m easures, could then consider insertion of a Pleurx catheter and initiation of comfort services. IMPRESSIONS: 1. Acute on chronic hypoxic respiratory failure secondary to large malignant pleural effusion The patient was recently diagnosed with metastatic non-small cell carcinoma, with an associated malignant pleural effusion on the left. The patient has required therapeutic thoracenteses, due to reaccumulation of his pleural fluid. The patient has been wavering about whether to proceed with aggressive measures. At this time, he is interested in discussing his case with oncology. I would recommend that a consultation be placed while he is admitted to the hospital. In the interim, I would proceed with ultrasound-guided thoracentesis tomorrow for therapeutic measure and to help decrease his supplemental oxygen demand. If the patient ultimately decides that he is not interested in pursuing any form of cancer treatment, consideration can then be given to the insertion of a Pleurx catheter. 2. Hypertension/hyperlipidemia/tobacco abuse/chronic kidney disease Complicates care, management, recovery and prognosis. Continue home medications as indicated. This note was generated with [employer] dictation software. It may contain incorrect words, spelling, and punctuation that were not noted in checking the note before signing. Subjective Subjective The patient was seen and examined at the bedside this morning. Events from the last 24 hours have been reviewed. The patient is currently afebrile, hemodynamically stable and maintaining appropriate oxygen saturations on 10 L/min via nasal cannula. I had a detailed discussion with the patient this morning regarding his diagnosis and overall goals of care. While the patient was initially not interested in being evaluated by oncology, he later stated that he has a strong desire to remain alive. He was not interested in pursuing hospice care services. He stated that he has difficulty making it to appointments due to a lack of transportation, but is interested in being evaluated by oncology while admitted to the hospital. Objective Data Objective Data The patient's most recent lab work, culture data and imaging studies have all been personally reviewed. Vital Signs: Vital Signs Temp Pulse Resp BP Pulse Ox O2 Del Method O2 Flow Rate 98.6 F 118 H 29 H 99/67 92 Nasal Cannula 10 05/29/23 09:00 05/29/23 09:05 05/29/23 09:00 05/29/23 09:00 05/29/23 09:00 05/29/23 09:00 05/29/23 09:00 Oxygen Flow Rate (L/min) [5] 15 Oxygen Flow Rate (L/min) [4] 15 Oxygen Flow Rate (L/min) [3] 15 Oxygen Flow Rate (L/min) [2] 15 Oxygen Flow Rate (L/min) [1 ( 15 Initial Baseline)] Oxygen Flow Rate (L/min) 10 Oxygen Delivery Method [5] High Flow Oxygen Delivery Method [4] High Flow Oxygen Delivery Method [3] High Flow Oxygen Delivery Method [2] High Flow Oxygen Delivery Method [1 ( High Flow Initial Baseline)] Oxygen Delivery Method Nasal Cannula Weight: 160 lb 8 oz Body Mass Index (BMI) 22.4 Intake & Output: Intake and Output for Last 24 Hours 05/27/23 05/28/23 05/29/23 23:59 23:59 23:59 Intake Total 1120 / 1120 880 / 880 500 / 500 Output Total 1650 / 1650 1275 / 1275 400 / 400 Balance -530 / -530 -395 / -395 100 / 100 Lab / Micro Data Attestation: I reviewed the patient's lab results. 05/29/23 05:52 05/29/23 05:52 Labs: Laboratory Results - last 24 hr 05/29/23 05:52: WBC 10.2, RBC 4.48 L, Hgb 10.5 L, Hct 38.9 L, MCV 86.8, MCH 23.4 L, MCHC 27.0 L, RDW Std Deviation 56.2 H, RDW Coeff of Jeffrey 17.8 H, Plt Count 243, MPV 8.7, Immature Gran % (Auto) 0.600, Neut % (Auto) 83.4 H, Lymph % (Auto) 2.9 L, [place] % (Auto) 10.2 H, Eos % (Auto) 2.4, Baso % (Auto) 0.5, Absolute Neuts (auto) 8.5 H, Absolute Lymphs (auto) 0.30 L, Nucleated RBC % 0, Anisocytosis 1+, Sodium 133 L, Potassium 3.8, Chloride 92 L, Carbon Dioxide 36.0 H, Anion Gap 5, BUN 24 H, Creatinine 1.13, Estim Creat Clear Calc 67.11, Est GFR (MDRD) Af Amer 84, Est GFR (MDRD) Non-Af 69, BUN/Creatinine Ratio 21.2 H, Glucose 117 H, Calcium 8.6 Radiography Diagnostic Testing: Radiology Impression Thoracentesis Ultrasound 05/26/23 08:00 IMPRESSION: Ultrasound-guided left thoracentesis. Electronically Signed: Enoc Amos MD at 11:34 EDT , Chest X-Ray 05/28/23 09:59 IMPRESSION: 1. 3.6 cm density in the left upper lobe correlating with previously demonstrated mass. 2. Left-sided pleural effusion with associated airspace disease which may be atelectasis and/or pneumonia. 3. Peripheral pulmonary opacities in the right lung correlating with prior CT, perhaps secondary to chronic interstitial changes versus airspace disease which may be atelectasis or pneumonia. Electronically Signed: Olaf Burns DO at 11:52 EDT , Rhythm Strip Rhythm Strip: Sinus Rhythm Rate: 101 Physical Exam Const alert and no apparent distress Constitutional Narrative: Sitting in bedside recliner. Unkempt in appearance. General Appearance: cooperative HEENT normocephalic and head/scalp atraumatic Eyes PERRL, EOMs intact bilaterally and conjunctivae normal Neck supple General: trachea midline Chest inspection of chest normal Resp Resp Narrative: Dullness to percussion of left lung base. Auscultation: diminished lung sounds Cardio regular rate and regular rhythm GI normal to inspection, nondistended, normoactive bowel sounds Extremity no clubbing, cyanosis or edema Skin no rashes or lesions noted Neuro CN's II-XII intact bilaterally, moves all extremities and no focal motor deficits Psych cooperative and affect normal Charges/Coding Visit Charges Inpatient E&M: 96052 Subs Hosp L2
[2023-05-29] MEDS: Acetaminophen 325 MG Tablet 650 MG PO (17:20)
[2023-05-30] VITALS (12 sets, daily range): BP systolic 88–120; BP diastolic 57–79; PULSE 101–122; RESP 17–28; TEMP 36.7–37.5; O2SAT 92–100
[2023-05-30] MEDS: oxyCODONE 5 MG Tablet PO (00:18)
[2023-05-30] MEDS: guaiFENesin 10 ML UDC (200MG/10ML) PO ×3 (00:56→23:32)
[2023-05-30 07:04] LABS: Absolute Lymphocyte Count 0.39 X10^3/uL (0.83-4.51); Basophil# 0.07 X10^3/uL; Basophil% 0.6 % (0-1); Eosinophil# 0.27 X10^3/uL; Eosinophils% 2.4 % (0-5); Hematocrit 39.3 % (40-54); Hemoglobin 10.7 g/dL (13.0-16.5); Lymphocyte # 0.39 X10^3/ul (0.83-4.51); Lymphocyte % 3.5 % (19-41); Mean Corp Hgb Conc 27.2 g/dL (32-36); Mean Corpuscular Hgb 23.7 pg (27.0-32.0); Mean Corpuscular Volume 86.9 fL (80-94); Mean Platelet Vol. 9.2 fl (6.2-12.0); Monocyte# 1.33 X10^3/uL; NRBC Flagged by Analyzer 0 % (0-5); POSITIVE DIFFERENTIAL YES; Platelet Count 270 K/mm3 (150-450); RBC Distribution Width CV 17.7 % (11.6-14.6); RBC Distribution Width SD 56.2 fl (35.1-43.9); Red Blood Count 4.52 M/mm3 (4.6-6.2); White Blood Count 11.1 K/mm3 (4.4-11.0)
[2023-05-30 07:06] LABS: Differential Indicated SCAN CRITERIA MET
[2023-05-30 07:43] LABS: Anion Gap 3 (5-15); BUN 18 mg/dL (7-18); BUN/Creat Ratio 16.5 RATIO (10-20); Calcium,Total 9.1 mg/dL (8.5-10.1); Chloride 92 mmol/L (98-107); Creatinine, Serum 1.09 mg/dL (0.70-1.30); EST Glomerular Filtration Rate 72 mL/min (>60); Est Glom Filt Rate - Afr Amer 87 mL/min (>60); Estimated Creatinine Clearance 69.57 ml/min; Glucose 119 mg/dL (74-106); Potassium 4.1 mmol/L (3.5-5.1); Sodium Level 132 mmol/L (136-145)
--- NOTE | 2023-05-30 08:00 | US_ITS ---
PROCEDURE: ULTRASOUND GUIDED THORACENTESIS. DATE: May 30, 2023. INDICATION: Male, 67 years old. Left pleural effusion. PHYSICIAN: Enoc Amos M.D. PROCEDURE: The risks, benefits, and alternatives to the procedure were explained to the patient. The specific risks of bleeding, infection, and pneumothorax requiring chest tube insertion were discussed and accepted. Written informed consent was obtained. Ultrasonographic evaluation of the left lower pleural space was carried out. An adequate pocket was identified. The patient was placed in the sitting, upright position. The overlying skin was prepped and draped in sterile fashion. 1% lidocaine was administered subcutaneously for local anesthesia. Under ultrasound guidance, a 5 [place] thoracentesis needle/catheter system was advanced into the left posterior lower pleural fluid collection. Approximately 3040 mL of blood-tinged fluid was drained. The catheter was removed, and a sterile dressing was applied. The patient tolerated the procedure well. A chest x-ray was ordered. US/Thoracentesis W US IMPRESSION: Ultrasound-guided left thoracentesis. Electronically Signed: Enoc Amos MD at 14:26 EDT ,
[2023-05-30] MEDS: Metoprolol Tartrate 25 MG Tablet PO ×2 (08:19→20:30)
[2023-05-30] MEDS: Acetaminophen 325 MG Tablet 650 MG PO ×2 (08:19→23:31)
[2023-05-30] MEDS: Atorvastatin Calcium 80 MG Tablet PO (08:19)
--- NOTE | 2023-05-30 08:37 | PN.HOSP_ITS ---
Reason for Visit Reason for Visit: Diagnoses Pleural effusion, not elsewhere classified (05/25/23) Acute respiratory failure with hypoxia (05/25/23) Other nonspecific abnormal finding of lung field (05/25/23) Subjective Subjective Patient underwent repeat ultrasound-guided thoracocentesis with approximately 3050 mL of dark-colored fluid was drained. Discussions were held with patient about placing a Pleurx catheter and going hospice. Patient is currently not show how he wants to proceed. Consult subsequently placed to oncology Objective Data Objective Data Vital Signs: Vital Signs Temp Pulse Resp BP Pulse Ox O2 Del Method O2 Flow Rate 99.5 F H 117 H 20 H 108/73 100 Airvo 60 05/30/23 08:00 05/30/23 08:19 05/30/23 08:00 05/30/23 08:00 05/30/23 08:00 05/30/23 08:13 05/30/23 08:00 FiO2 79 05/30/23 08:00 Oxygen Flow Rate (L/min) [5] 15 Oxygen Flow Rate (L/min) [4] 15 Oxygen Flow Rate (L/min) [3] 15 Oxygen Flow Rate (L/min) [2] 15 Oxygen Flow Rate (L/min) [1 ( 15 Initial Baseline)] Oxygen Flow Rate (L/min) 60 Oxygen Delivery Method [5] High Flow Oxygen Delivery Method [4] High Flow Oxygen Delivery Method [3] High Flow Oxygen Delivery Method [2] High Flow Oxygen Delivery Method [1 ( High Flow Initial Baseline)] Oxygen Delivery Method Airvo Weight: 72.802 kg Body Mass Index (BMI) 22.4 Intake & Output: Intake and Output for Last 24 Hours 05/28/23 05/29/23 05/30/23 23:59 23:59 23:59 Intake Total 880 / 880 1480 / 1600 120 / 120 Output Total 1275 / 1275 1000 / 1000 400 / 400 Balance -395 / -395 480 / 600 -280 / -280 Lab / Micro Data 05/30/23 06:28 05/30/23 06:28 Labs: Laboratory Results - last 24 hr 05/30/23 06:28: WBC 11.1 H, RBC 4.52 L, Hgb 10.7 L, Hct 39.3 L, MCV 86.9, MCH 23.7 L, MCHC 27.2 L, RDW Std Deviation 56.2 H, RDW Coeff of Jeffrey 17.7 H, Plt Count 270, MPV 9.2, Immature Gran % (Auto) 0.500, Neut % (Auto) 81.0 H, Lymph % (Auto) 3.5 L, [place] % (Auto) 12.0 H, Eos % (Auto) 2.4, Baso % (Auto) 0.6, Absolute Neuts (auto) 9.0 H, Absolute Lymphs (auto) 0.39 L, Nucleated RBC % 0, Differential Comment COMMENT, Sodium 132 L, Potassium 4.1, Chloride 92 L, Carbon Dioxide 37.0 H, Anion Gap 3 L, BUN 18, Creatinine 1.09, Estim Creat Clear Calc 69.57, Est GFR (MDRD) Af Amer 87, Est GFR (MDRD) Non-Af 72, BUN/Creatinine Ratio 16.5, Glucose 119 H, Calcium 9.1 Radiography Diagnostic Testing: Radiology Impression Thoracentesis Ultrasound 05/26/23 08:00 IMPRESSION: Ultrasound-guided left thoracentesis. Electronically Signed: Enoc Amos MD at 11:34 EDT , Rhythm Strip Rhythm Strip: Sinus Rhythm Rate: 101 Physical Exam Narrative GENERAL: Dyspneic at rest, diaphoretic HEENT: Atraumatic; normocephalic EYES; Anicteric, Normal Conjunctiva NECK; supple, normal thyroid, RESPIRATORY: Diminished to auscultation, tachypneic CARDIOVASCULAR: Regular S1 S2, tachycardic GI: soft, normoactive bowel sounds, : No Renal angle tenderness; EXTREMITIES: No edema, no clubbing, MUSCULOSKELETAL: no muscle wasting NEURO: Awake; no lateralizing signs. SKIN: No Rash PSYCH; Flat affect Assessment & Plan Assessment/Plan (1) Acute respiratory failure with hypoxia: (2) Pleural effusion: PLAN: Plan Patient is a 67-year-old gentleman with recently diagnosed metastatic non-small cell carcinoma involving the lung presented with progressive shortness of breath. Found to have pleural effusion with significant hypoxia admitted to a monitored bed for further management 1. Acute hypoxic respiratory failure ? Secondary to malignant pleural effusion patient underwent ultrasound-guided thoracentesis on 05/25/2023 with evacuation of 80% on seen large pleural effusion. his a.m. discussions were held with the patient regarding subsequent management given his recurrent pleural effusion. Patient yet to decide on how he intends to proceed including placement of Pleurx catheter if needed ? 05/28/2023atient seen still remains significantly hypoxic currently on 14 L Flow per minute of oxygen. Repeated chest x-ray with plans for repeat thoracocentesis if patient has significant fluid. Patient may need to undergo Pleurx catheter placement -05/29/2023; Repeat thoracentesis ordered for am ? 05/30/2023;Patient underwent repeat ultrasound-guided thoracocentesis with approximately 3050 mL of dark-colored fluid was drained. Discussions were held with patient about placing a Pleurx catheter and going hospice. Patient is currently not show how he wants to proceed. Consult subsequently placed to oncology ? Patient clinical condition continues to deteriorate had a discussion with the patient regarding CODE STATUS as well as possible hospice referral 2. Suspected pneumonia with MDR's ? Patient started on Zosyn cultures sent 3. Recently diagnosed metastatic non-small cell carcinoma involving the lung -Patient to follow-up with oncology once medically stable 4. Chronic kidney disease stage III ? Kidney function at baseline 5. Dyslipidemia -Patient is on statin therapy, continued at home dose 6. Hypertension - Blood pressure controlled, home medications continued with dose adjustment as needed 7. Anemia - Secondary to chronic disorder monitoring H&H and transfuse if patient becomes symptomatic or hemoglobin falls below 7 8. DVT prophylaxis ? SC Lovenox Time spent in the patient's overall evaluation,decision-making process, review of diagnostic data, adjustment of management, discussion with other providers, nursing nursing and ancillary staff involved in patient's care documentation,50 Minutes Advance planning; did discuss with the patient and family regarding advanced directives as well as CODE STATUS. Did explain the various scenarios involved ( FULL CODE, DNR CCA, DNR CCA with no intubation, and DNR CC and what each meant) patient elected to be DNR CCA no intubation. Order was placed. Time spent on discussion 18 minutes. Charges/Coding Visit Charges Inpatient E&M: 89791 Subs Hosp L3 Procedures Hospitalists Procedures: 35890 Advncd Care Plan 30 Min
[2023-05-30] MEDS: Lidocaine 2% (20 ml mdv) 20 ML Vial INFILT (13:36)
--- NOTE | 2023-05-30 13:50 | RAD_ITS ---
STUDY: X-RAY CHEST REASON FOR EXAM: Male, 67 years old. Post thoracentesis TECHNIQUE: AP inspiration and expiration views following left thoracentesis. COMPARISON: Comparison is made with prior study May 28, 2023. FINDINGS: The patient is status post left thoracentesis. No evidence of pneumothorax. Residual bibasilar pulmonary infiltrates. RAD/Chest Insp/Exp 2 View IMPRESSION: No evidence of pneumothorax following the left thoracentesis. Electronically Signed: Enoc Amos MD at 14:22 EDT ,
--- NOTE | 2023-05-30 14:28 | CASEMGMT ---
SW spoke with patient. Re- introduced self and role at [facility]. SW talked with patient about Hospice. Patient said he is not sure what he wants to do. Oncology is supposed to meet with patient today. SW told patient SW will check back with patient tomorrow. Lizette RAZO
--- NOTE | 2023-05-30 16:42 | ONC.CONSULT ---
Assessment & Plan Assessment/Plan (1) Metastatic clear cell carcinoma of kidney: Status: Acute Code(s): C64.9 - Malignant neoplasm of unspecified kidney, except renal pelvis Plan: Patient presents with rapidly recurring malignant effusion status post repeated thoracocentesis and pathologically confirmed to represent metastatic renal cancer. Patient's history notable for status post left radical nephrectomy in 2014 for clear-cell cancer and has a history of prostate cancer. Using the [facility] prognostic model for metastatic kidney cancer (with interval of over 1 year since initial diagnosis, normal serum LDH, normal serum calcium, mild anemia with hemoglobin 11 and impaired performance status primarily from the pleural effusion a total score of 2) patient is in the intermediate risk group. Plan: I met with the patient, discussed the diagnosis, stage IV, disease is incurable but with available treatment symptom palliation and survival benefit can be expected with systemic therapy that includes combination of immune therapy (pembrolizumab) and targeted therapy (axitinib). The patient is undecided whether he will consent to pursuing systemic therapy or not and therefore his options are: 1. Transfer to a hospital where thoracic surgery is available (for example [facility]) at which he can have chest tube drainage followed by therapeutic pleurodesis to control his rapidly recurring pleural effusion that is the main symptom from the recurrent cancer and is impairing his performance status this is to be followed by systemic therapy as above mentioned. 2. If the patient does not wish to pursue any active cancer therapy then a palliative Pleurx catheter and hospice referral. The patient requested 24-hour to make a decision that he will communicate to us. Case was discussed with hospitalist Nash Crocker MD Hotel Housekeeper, [facility] Divisions of Medical Oncology & Hematology Department of Internal Medicine [place] [phone] This note was generated using a voice recognition system software. Although it was reviewed by the author prior to finalization, it may still contain incorrect words, spelling, and punctuation that were not noted when reviewing prior to saving. If a clinically significant typo or inaccurately typed phrase is noted, please notify the author. (2) Malignant pleural effusion: Status: Acute Code(s): J91.0 - Malignant pleural effusion (3) Metastasis to lung: Status: Acute Code(s): C78.00 - Secondary malignant neoplasm of unspecified lung (4) Acute respiratory failure with hypoxia: Status: Acute Code(s): J96.01 - Acute respiratory failure with hypoxia (5) Cancer of left kidney: Status: Chronic Code(s): C64.2 - Malignant neoplasm of left kidney, except renal pelvis HPI Consult Data Date of Service:: 05/30/23 PCP / Referring Provider: Dr. Shaniqua Waldron DO Attending: Dr. Armani Ayala MD Chief Complaint Chief Complaint: Dyspnea, recurrent malignant pleural effusion History of Present Illness History of Present Illness: 67-year-old male past medical history notable for history of left kidney clear-cell carcinoma status post robotic radical nephrectomy in April 2014 and history of Cecy 6 prostate cancer found in [facility] in January 2014 which according to patient was on surveillance and received no active treatment. The patient has had repeated admissions to the hospital with dyspnea and rapidly recurring left pleural effusion since April 2013 with pathologically confirmed metastatic carcinoma with IHC pattern consistent with metastatic renal cancer. April 24, 2023 CTA: IMPRESSION: Moderate-sized left pleural effusion with left basilar atelectasis. 2.9 cm x 3.1 cm mass in the left upper lobe. Left hilar lymphadenopathy. Mild enlargement of mediastinal lymphadenopathy. Advanced Directives Power of Central Supply Technician: No Living Will: No PFSH Medical History (Updated 05/30/23 @ 16:[address] Nash Crocker MD) Cancer of left kidney Chest pain Chronic pain CKD (chronic kidney disease) COPD (chronic obstructive pulmonary disease) BUTCHER (dyspnea on exertion) Hypertension Hypothyroidism Irregular heart beat Kidney disease Malignant pleural effusion Mass of upper lobe of left lung Metastasis to lung Metastatic clear cell carcinoma of kidney Smoker Substance abuse Tobacco abuse Home Medications metoprolol tartrate 25 mg tablet 25 mg PO BID for blood pressure 03/26/18 [History Last Taken 05/24/23] rosuvastatin 40 mg tablet 40 mg PO DAILY for cholesterol 03/27/23 [History Last Taken 05/25/23] omega 9-dab-oum-fish oil 300 mg-1,000 mg capsule (Fish Oil) 1 cap PO BID supplement 04/24/23 [History Last Taken 05/25/23] Allergy/AdvReac Type Severity Reaction Status Date / Time No Known Allergies Allergy Verified 04/24/23 15:07 Family History Brother Cancer Kidney disease Mother Heart disease Grandfather Cancer LUNG Surgical History History of left nephrectomy Social History (Updated 05/26/23 @ 10:[address] Rajesh Ibarra MD) Smoking Status: Current every day smoker tobacco type: cigarettes quit status: not considering quitting counseling given: provider counseling ROS Constitutional Constitutional: Denies fever(s), night sweats or weight loss ENT HEENT: Denies dysphagia Cardiovascular Cardiovascular: Reports dyspnea and dyspnea at rest; Denies edema Respiratory/Chest Respiratory/Chest: Reports dyspnea, hemoptysis and other Details: He has had infrequent minor hemoptysis apparently after his first thoracocentesis ; Denies cough or wheezing Gastrointestinal Gastrointestinal: Denies abdominal pain, change in bowel habits, hematochezia or melena Genitourinary Genitourinary: Denies hematuria Musculoskeletal Musculoskeletal: Denies back pain Integumentary Integumentary: Denies new lesions Neurologic Neurologic: Denies focal weakness or headache(s) Hematologic/Lymphatic Hematologic/Lymphatic: Denies lymphadenopathy Physical Exam Narrative On oxygen Const alert and oriented x3 General Appearance: cooperative, ill appearing Positive for chronically and appears older than stated age Orientation / Consciousness: oriented to person, oriented to place and oriented to time Nutritional Appearance: thin HEENT moist oral mucous membranes Head and Scalp: atraumatic Neck no lymphadenopathy and no JVD Resp Auscultation: diminished lung sounds left Cardio regular rate and regular rhythm GI soft to palpation, non-tender and no masses Extremity no clubbing, cyanosis or edema Skin no rashes or lesions noted Neuro CN's II-XII intact bilaterally, moves all extremities and no focal motor deficits Psych mental status grossly normal Vital Signs Temperature 98.7 F 05/30/23 12:00 Temperature Source Oral 05/30/23 12:00 Pulse Rate 103 H 05/30/23 14:25 Pulse Strength Normal (2+) 05/30/23 08:13 Respiratory Rate 17 05/30/23 14:25 Respiratory Effort Short of Breath, Labored 05/30/23 14:25 Respiratory Depth Normal 05/30/23 14:00 Respiratory Pattern Normal 05/30/23 14:25 Blood Pressure 96/67 05/30/23 14:25 Blood Pressure Mean 90 05/30/23 12:00 Blood Pressure Source Monitor 05/30/23 12:00 Blood Pressure Position Semi-Fowlers 05/30/23 12:00 Blood Pressure Location Right Arm 05/30/23 12:00 Pulse Ox 100 05/30/23 12:00 Oxygen Delivery Method High Flow 05/30/23 14:25 Oxygen Flow Rate (L/min) 15 05/30/23 14:25 Fraction of Inspired Oxygen (FIO2) 79 05/30/23 12:00 Laboratory Results - last 24 hr 05/30/23 06:28: WBC 11.1 H, RBC 4.52 L, Hgb 10.7 L, Hct 39.3 L, MCV 86.9, MCH 23.7 L, MCHC 27.2 L, RDW Std Deviation 56.2 H, RDW Coeff of Jeffrey 17.7 H, Plt Count 270, MPV 9.2, Immature Gran % (Auto) 0.500, Neut % (Auto) 81.0 H, Lymph % (Auto) 3.5 L, [place] % (Auto) 12.0 H, Eos % (Auto) 2.4, Baso % (Auto) 0.6, Absolute Neuts (auto) 9.0 H, Absolute Lymphs (auto) 0.39 L, Nucleated RBC % 0, Differential Comment COMMENT, Sodium 132 L, Potassium 4.1, Chloride 92 L, Carbon Dioxide 37.0 H, Anion Gap 3 L, BUN 18, Creatinine 1.09, Estim Creat Clear Calc 69.57, Est GFR (MDRD) Af Amer 87, Est GFR (MDRD) Non-Af 72, BUN/Creatinine Ratio 16.5, Glucose 119 H, Calcium 9.1 Diagnostic Data Thoracentesis Ultrasound 05/30/23 08:00 IMPRESSION: Ultrasound-guided left thoracentesis. Electronically Signed: Enoc Amos MD at 14:26 EDT , Chest X-Ray 05/30/23 13:50 IMPRESSION: No evidence of pneumothorax following the left thoracentesis. Electronically Signed: Enoc Amos MD at 14:22 EDT , I reviewed patient CTA images of April 2023 and concur with reported findings See under HPI
[2023-05-31] VITALS (9 sets, daily range): BP systolic 94–115; BP diastolic 59–75; PULSE 104–117; RESP 20–28; TEMP 36.6–37.2; O2SAT 91–100
--- NOTE | 2023-05-31 03:24 | NURSING ---
Entered room to evaluate pt. Found pt in bathroom. Without oxygen on and iv metzger and tele removed. Messaged Dr cosme to inform. States to leave metzger out for now and to draw labs early for am. New iv inserted #20 to left arm. Pt placed back on airvo. and positioned back in bed. Tele reapplied. Bed alarm activated.
[2023-05-31 03:38] LABS: Absolute Neutrophil Count 9.9 X10^3/uL (2.0-7.7); Basophil# 0.04 X10^3/uL; Basophil% 0.3 % (0-1); Eosinophil# 0.25 X10^3/uL; Eosinophils% 2.1 % (0-5); Hematocrit 41.5 % (40-54); Hemoglobin 11.2 g/dL (13.0-16.5); Lymphocyte % 4.2 % (19-41); Mean Corpuscular Hgb 23.6 pg (27.0-32.0); Mean Corpuscular Volume 87.4 fL (80-94); Mean Platelet Vol. 9.2 fl (6.2-12.0); Monocyte# 1.18 X10^3/uL; Monocyte% 9.9 % (0-10); NRBC Flagged by Analyzer 0 % (0-5); Neutrophil % 82.9 % (47-70); POSITIVE DIFFERENTIAL YES; Platelet Count 279 K/mm3 (150-450); RBC Distribution Width CV 17.6 % (11.6-14.6); RBC Distribution Width SD 55.6 fl (35.1-43.9); Red Blood Count 4.75 M/mm3 (4.6-6.2); White Blood Count 11.9 K/mm3 (4.4-11.0)
[2023-05-31 04:02] LABS: Anion Gap 5 (5-15); BUN 23 mg/dL (7-18); BUN/Creat Ratio 16.8 RATIO (10-20); Calcium,Total 8.8 mg/dL (8.5-10.1); Chloride 93 mmol/L (98-107); Creatinine, Serum 1.37 mg/dL (0.70-1.30); EST Glomerular Filtration Rate 55 mL/min (>60); Est Glom Filt Rate - Afr Amer 67 mL/min (>60); Estimated Creatinine Clearance 55.35 ml/min; Glucose 117 mg/dL (74-106); Potassium 4.3 mmol/L (3.5-5.1); Sodium Level 134 mmol/L (136-145)
[2023-05-31 04:37] LABS: Differential Indicated SCAN CRITERIA MET
[2023-05-31] MEDS: oxyCODONE 5 MG Tablet PO (04:55)
[2023-05-31] MEDS: guaiFENesin 10 ML UDC (200MG/10ML) PO (04:55)
[2023-05-31 05:10] LABS: Anisocytosis 1+
[2023-05-31] MEDS: Atorvastatin Calcium 80 MG Tablet PO (09:36)
[2023-05-31] MEDS: Acetaminophen 325 MG Tablet 650 MG PO (09:37)
[2023-05-31] MEDS: Metoprolol Tartrate 25 MG Tablet PO (11:07)
--- NOTE | 2023-05-31 12:23 | NURSING ---
Report called to [facility] LADAN Moreira at 1215.
--- NOTE | 2023-05-31 13:54 | DS.PCM_ITS ---
Providers Date of Admission: 05/25/23 Date of Discharge: 05/31/23 Primary Care Physician: Dr. Shaniqua Waldron, Consultations 05/26/23 08:27 Consult: Printing Screen Assembler / Pulmonary Medicine Routine Consulting Provider: Rajesh Ibarra Reason for Consult: Worsening resp failure, malignant effusion, ?PNA component EMERGENT Consult: No MD Notified: Yes Date Notified: 05/26/23 Time Notified: 08:27 Method of Notification: Text 05/29/23 13:08 Consult: Oncology/Hematology Routine Consulting Provider: [facility] Reason for Consult: Metastatic lungCA EMERGENT Consult: No MD Notified: Yes Date Notified: 05/29/23 Time Notified: 13:08 Method of Notification: Verbal Reason For Visit: SHORTNESS OF BREATH Diagnosis Discharge Diagnosis (1) Metastatic clear cell carcinoma of kidney: Status: Acute Code(s): C64.9 - Malignant neoplasm of unspecified kidney, except renal pelvis (2) Malignant pleural effusion: Status: Acute Code(s): J91.0 - Malignant pleural effusion (3) Metastasis to lung: Status: Acute Code(s): C78.00 - Secondary malignant neoplasm of unspecified lung (4) Acute respiratory failure with hypoxia: Status: Acute Code(s): J96.01 - Acute respiratory failure with hypoxia (5) Cancer of left kidney: Status: Chronic Code(s): C64.2 - Malignant neoplasm of left kidney, except renal pelvis Plan 1. Acute on chronic hypoxic respiratory failure secondary to recurrent left pleural effusion from metastatic clear-cell carcinoma of the kidney #2 recurrent left pleural effusion secondary to metastatic clear-cell carcinoma of the kidney #3 metastatic clear-cell carcinoma of the kidney #4 chronic kidney disease stage IIIa #5 essential hypertension Medications at Discharge Home Medications metoprolol tartrate 25 mg tablet 25 mg PO BID for blood pressure 03/26/18 rosuvastatin 40 mg tablet 40 mg PO DAILY for cholesterol 03/27/23 omega 0-wrk-bwy-fish oil 300 mg-1,000 mg capsule (Fish Oil) 1 cap PO BID supplement 04/24/23 Hospital Course Operations None Procedures Thoracentesis Summary of Care Provided Minutes Spent on Discharge: 32 Hospital Course: This 67-year-old white male was transferred from a local hospital as a direct admission for further care after going to the hospital with complaints of increased shortness of breath and work-up indicated the patient to have a large left pleural effusion, patient had a history of left pleural effusion before and had been diagnosed with non-small cell cancer but the patient did not desire treatment for this cancer. It was noted at the outside hospital that the patient had an elevated white blood cell count of 18,000. Patient was on 6 L of oxygen at home at baseline. Patient was admitted to PCU for acute on chronic hypoxic respiratory failure secondary to malignant pleural effusion, he was seen in consultation by pulmonary medicine and underwent a thoracentesis with removal of several liters of pleural fluid. Discussions were carried out with the patient and in the end the patient decided that he did want treatment for his cancer, pathology reports came back positive for clear-cell renal cancer. Patient was seen by oncology in the hospital, they did not want the patient to have a Pleurx catheter if the patient wanted treatment, I discussed this with the patient and he confirmed to me that he would want treatment. Therefore, patient was transferred to a tertiary facility for chest tube insertion and pleurodesis. He would be seen there by oncology. [facility] in [place] was contacted and agreed to accept the patient in the ICU. On 05/31/2023, patient was seen and examined: On examination he appeared cachectic and unwell. Vital signs as documented. Skin warm and dry and without overt rashes. Neck without JVD, neck was supple, trachea midline, thyroid was normal. Lungs clear bilaterally, normal air movement was noted. Heart exam notable for regular rhythm, normal sounds and absence of murmurs, rubs or gallops. Abdomen unremarkable and without evidence of organomegaly, masses, or abdominal aortic enlargement. Bowel sounds are present, abdomen is not distended. Extremities nonedematous, no cyanosis was noted, no clubbing was noted. Neuro: Cranial nerves II through XII are grossly intact, no focal motor deficits were noted, sensation to light touch and pinprick intact, motor exam 5/5 throughout. Psych: Patient is alert and oriented x3, he does not appear anxious or depressed, he does not appear agitated. Patient was transferred to [facility] in [place] on 05/31/2023 in stable condition. Weight / BMI Weight Weight: 72.802 kg Body Mass Index (BMI) 22.4 ABG / Lab / Microbiology Data 05/31/23 03:31 05/31/23 03:31 Laboratory: Laboratory Results - last 24 hr 05/31/23 03:31: WBC 11.9 H, RBC 4.75, Hgb 11.2 L, Hct 41.5, MCV 87.4, MCH 23.6 L , MCHC 27.0 L, RDW Std Deviation 55.6 H, RDW Coeff of Jeffrey 17.6 H, Plt Count 279, MPV 9.2, Immature Gran % (Auto) 0.600, Neut % (Auto) 82.9 H, Lymph % (Auto) 4.2 L, [place] % (Auto) 9.9, Eos % (Auto) 2.1, Baso % (Auto) 0.3, Absolute Neuts (auto) 9.9 H, Absolute Lymphs (auto) 0.50 L, Nucleated RBC % 0, Anisocytosis 1+, Sodium 134 L, Potassium 4.3, Chloride 93 L, Carbon Dioxide 36.0 H, Anion Gap 5, BUN 23 H, Creatinine 1.37 H, Estim Creat Clear Calc 55.35, Est GFR (MDRD) Af Amer 67, Est GFR (MDRD) Non-Af 55 L, BUN/Creatinine Ratio 16.8, Glucose 117 H, Calcium 8.8 Radiography Diagnostic Testing: Radiology Impression Thoracentesis Ultrasound 05/30/23 08:00 IMPRESSION: Ultrasound-guided left thoracentesis. Electronically Signed: Enoc Amos MD at 14:26 EDT , Chest X-Ray 05/30/23 13:50 IMPRESSION: No evidence of pneumothorax following the left thoracentesis. Electronically Signed: Enoc Amos MD at 14:22 EDT , Meaningful Use Info Meaningful Use Diagnoses (Choose all that apply): None applicable Discharge Plan Admission Admit Date/Time: 05/25/23 16:33 Attending Provider: Syed Cabello Primary Care Provider: Shaniqua Waldron Consulting Providers: Rajesh Ibarra; Kina Serrano; Armani Bourgeois; Kashmir Pruitt; Nash Crocker; Levi Oconnor; Shane Martinez; Pavel Garrido; Guillermo Cruz; Elizabeth Silverio DITCH TENDER; Armani Ayala Instructions Patient Instructions: ESSIE RN Thoracentesis Dc Discharge Orders/Prescriptions Prescriptions: No Action rosuvastatin 40 mg tablet 40 mg PO DAILY metoprolol tartrate 25 MG tablet 25 mg PO BID omega 3-pej-yso-fish oil [Fish Oil] 300-1,000 mg capsule 1 cap PO BID Referrals / Follow Up: Shaniqua Waldron, [Primary Care Provider] - Disposition Disposition (needs filled in before D/C Order can be placed): Acute Care Hospital Charges/Coding Visit Charges Inpatient E&M: 05730 Disch Hosp >30min
--- NOTE | 2023-05-31 13:56 | NURSING ---
Prior to patient being transferred to [facility], this RN asked patient if he notified family of his transfer or if he needed me to call them. Patient stated that he had called his sister and mother already. All belongings packed up and sent with patient via [facility] Critical Care transport team.
== END 2023-05-31 13:27 | disposition short-term general hospital (02) | DRG 180 ==
PROVIDERS: Family Medicine; Admitting Provider Internal Medicine; PCP Family Medicine; Visit Provider Internal Medicine
DX: C78.00 Secondary malignant neoplasm of unspecified lung (principal); J96.21 Acute and chronic respiratory failure with hypoxia; J18.9 Pneumonia, unspecified organism; J44.0 Chronic obstructive pulmonary disease with (acute) lower respiratory infection; J91.0 Malignant pleural effusion; D63.8 Anemia in other chronic diseases classified elsewhere; N18.32 Chronic kidney disease, stage 3b; I12.9 Hypertensive chronic kidney disease with stage 1 through stage 4 chronic kidney disease, or unspecified chronic kidney disease; E03.9 Hypothyroidism, unspecified; E78.5 Hyperlipidemia, unspecified; F17.210 Nicotine dependence, cigarettes, uncomplicated; Z85.528 Personal history of other malignant neoplasm of kidney; Z66 Do not resuscitate; Z79.899 Other long term (current) drug therapy; Z90.5 Acquired absence of kidney; Z85.46 Personal history of malignant neoplasm of prostate
CPT/HCPCS: 32555; 36415; 71045; 71046; 80048; 83615; 84156; 85025; 85610; 87641; 94660; 94762; 99406; A4216